=== PATIENT | female | born 1975 | race Caucasian/White ===

== ENCOUNTER → 2020-12-04 10:59 | Outpatient (BNVA) | payer OTHER, SELFPAY | PROVIDERS: Visit Provider Orthopaedic Surgery | DX: Z13.89 Encounter for screening for other disorder (principal) | CPT/HCPCS: 99212 ==

== ENCOUNTER 2021-01-15 08:58 | Outpatient (REF) | payer OTHER, SELFPAY ==
[2021-01-15 10:07] LABS: Estimated Average Glucose 143 mg/dL; Hemoglobin A1c % 6.6 %
[2021-01-15 10:12] LABS: Alanine Aminotransferase 22 U/L (0-31); Alkaline Phosphatase 53 U/L (39-117); Anion Gap 10 (12-20); Aspartate Amino Transferase 22 U/L (5-31); Bilirubin Total 0.8 mg/dL (0.0-1.0); Blood Urea Nitrogen 10 mg/dL (9-16); Calcium 8.7 mg/dL (8.4-10.2); Carbon Dioxide 24 mmol/L (22-29); Chloride 111 mmol/L (96-108); Cholesterol 157 mg/dL; Estimated Glomerular Filt Rate > 60; Glucose Random 199 mg/dL (60-115); HDL Cholesterol 75 mg/dL; LDL Cholesterol Calculated 75 mg/dl; Potassium 4.9 mmol/L (3.3-5.1); Sodium 140 mmol/L (135-145); Total Protein 6.7 g/dL (6.5-8.0); Triglycerides 36 mg/dL
[2021-01-15 10:34] LABS: TSH reflex Free T4 1.48 uIU/mL (0.32-4.0); Vitamin D 25-OH Total 47.2 ng/mL (>30)
[2021-01-20 21:01] LABS: Insulin Auto Antibody 1.7 U/mL (<0.4)
== END 2021-01-15 08:59 | disposition home or self-care (01) ==
LOC: HO.LAB 08:58
PROVIDERS: PCP Hospitalist; Visit Provider Internal Medicine
DX: E55.9 Vitamin D deficiency, unspecified (principal); E10.49 Type 1 diabetes mellitus with other diabetic neurological complication; E03.9 Hypothyroidism, unspecified
CPT/HCPCS: 36415; 80053; 80061; 82043; 82306; 83036; 84443; 86337

== ENCOUNTER 2021-03-12 10:54 | Outpatient (REF) | payer OTHER, SELFPAY ==
--- NOTE | ~2021-03-12 | MM_ITS ---
EXAMINATION: MM SCREENING DIGITAL BREAST TOMOSYNTHESIS, BILATERAL CLINICAL INFORMATION: Screening. Asymptomatic. Age 46. Family history premenopausal breast cancer, mother. The lifetime risk of breast cancer based on the Tyrer-Cuzick Model is 24%. COMPARISON: Mammography: 01/14/2014, 12/07/2012 TECHNIQUE: Digital breast tomosynthesis is performed in both the craniocaudal and mediolateral oblique views along with computer-aided detection (CAD). Synthesized 2D images are generated from the tomosynthesis. FINDINGS: The breasts are heterogeneously dense, which may obscure small masses (ACR BI-RADS breast composition Category c). There are no significant masses, abnormal calcifications, or other abnormalities. No significant changes. The axilla and skin contours are unremarkable. MM/MM tomosynthesis screening BI IMPRESSION: No mammographic evidence of malignancy. ASSESSMENT: BI-RADS 1: Negative RECOMMENDATION: 1. Routine annual mammography screening. 2. The lifetime risk of breast cancer based on the Tyrer-Cuzick Model is 24%. Additional annual adjunct screening with breast MRI may be of benefit in women with a risk score of 20% or greater and dense breast parenchymal pattern on mammography. This patient's information was entered into a reminder system with a target due date for their next mammogram.
== END 2021-03-12 10:55 | disposition home or self-care (01) ==
LOC: HO.MAMMO 10:54
PROVIDERS: PCP Hospitalist; Visit Provider Hospitalist
DX: Z12.31 Encounter for screening mammogram for malignant neoplasm of breast (principal)
CPT/HCPCS: 77063; 77067

== ENCOUNTER 2021-12-03 14:17 | Outpatient (REF) | payer OTHER, SELFPAY ==
[2021-12-03 18:20] LABS: Appearance Urine CLEAR; Color Urine DK YELLOW; Glucose Urine UA >=1000 MG/DL (NEG); Leukocyte Esterase Urine NEG (NEG); Specific Gravity - Urine <= 1.005 (1.005-1.025); Urine Blood NEG (NEG); Urine Ketones NEG (NEG); Urine Protein NEG (NEG-TRACE)
[2021-12-03 18:28] LABS: Nitrite Urine NEG (NEG)
[2021-12-03 18:29] LABS: RBC Urine 0 /HPF (0); Squamous Epithelial Cell Urine TRACE /LPF; WBC Urine 0 /HPF (0-4)
== END 2021-12-03 14:18 | disposition home or self-care (01) ==
LOC: HO.LAB 14:17
PROVIDERS: Visit Provider Family Medicine
DX: R39.15 Urgency of urination (principal)
CPT/HCPCS: 81001; 87086

== ENCOUNTER 2022-01-28 09:04 | Outpatient (REF) | payer OTHER, SELFPAY ==
[2022-01-28 09:27] LABS: MANUAL DIFF FLAG NO
[2022-01-28 09:43] LABS: Basophils Percent Auto 0.4 % (0-2); Eosinophils Absolute Auto 0.2 X10*3/uL (0.0-0.4); Eosinophils Percent Auto 3.1 % (0-4); Hematocrit 42.9 % (37.0-47.0); Hemoglobin 14.9 g/dl (12.0-16.0); Imm Gran Abs Auto 0.03 X10*3/uL (0.00-0.03); Imm Gran Pct Auto 0.4 % (0.0-0.4); Lymphocytes Absolute Auto 1.8 X10*3/uL (1.2-4.9); Mean Corpuscular HGB Conc 34.7 g/dl (31.0-35.0); Mean Corpuscular Volume 94.9 fL (80.0-98.0); Mean Platelet Volume 10.2 fL (9.4-12.3); Monocytes Absolute Auto 0.6 X10*3/uL (0.1-1.2); Monocytes Percent Auto 8.4 % (2-11); Neutrophils Absolute Auto 4.1 x10*3/uL (2.0-8.3); Neutrophils Percent Auto 60.7 % (45-73); Platelet Count 219 X10*3/uL (160-400); Red Blood Count 4.52 X10*6/uL (4.20-5.50); Red Cell Distribution Width 11.3 % (11.0-16.0); White Blood Count 6.8 X10*3/uL (4.8-10.8)
[2022-01-28 10:05] LABS: Alanine Aminotransferase 31 U/L (0-31); Albumin Level 4.2 g/dL (3.5-5.0); Alkaline Phosphatase 56 U/L (39-117); Anion Gap 11 (12-20); Aspartate Amino Transferase 27 U/L (5-31); Bilirubin Total 0.6 mg/dL (0.0-1.0); Blood Urea Nitrogen 14 mg/dL (9-16); Calcium 9.6 mg/dL (8.4-10.2); Carbon Dioxide 22 mmol/L (22-29); Chloride 109 mmol/L (96-108); Estimated Glomerular Filt Rate > 60; Glucose Random 122 mg/dL (60-115); Potassium 4.9 mmol/L (3.3-5.1); Sodium 137 mmol/L (135-145); Total Protein 7.3 g/dL (6.5-8.0)
[2022-01-28 10:26] LABS: TSH reflex Free T4 0.42 uIU/mL (0.32-4.0); Vitamin D 25-OH Total 51.5 ng/mL (>30)
[2022-01-28 10:44] LABS: Estimated Average Glucose 154 mg/dL
[2022-01-28 11:34] LABS: Creatinine Urine 90.94 mg/dL
[2022-01-28 11:37] LABS: Microalbumin Urine < 5.0 mg/L
[2022-01-30 07:36] LABS: LDL Cholesterol Direct 76 mg/dL (<100)
== END 2022-01-28 09:05 | disposition home or self-care (01) ==
LOC: HO.LAB 09:04
PROVIDERS: PCP Hospitalist; Visit Provider Internal Medicine
DX: E55.9 Vitamin D deficiency, unspecified (principal); E10.49 Type 1 diabetes mellitus with other diabetic neurological complication; E03.9 Hypothyroidism, unspecified
CPT/HCPCS: 36415; 80053; 82043; 82306; 83036; 83721; 84443; 85025

== ENCOUNTER 2022-04-08 11:12 | Outpatient (REF) | payer OTHER, SELFPAY ==
--- NOTE | ~2022-04-08 | MM_ITS ---
EXAMINATION: MM SCREENING DIGITAL BREAST TOMOSYNTHESIS, BILATERAL CLINICAL INFORMATION: Screening. Asymptomatic. Family history breast cancer, mother. The lifetime risk of breast cancer based on the Tyrer-Cuzick Model is 24%. COMPARISON: Mammography: 03/12/2021, 01/14/2014 TECHNIQUE: Digital breast tomosynthesis is performed in both the craniocaudal and mediolateral oblique views along with computer-aided detection (CAD). Synthesized 2D images are generated from the tomosynthesis. Additional left CC view is provided. FINDINGS: The breasts are heterogeneously dense, which may obscure small masses (ACR BI-RADS breast composition Category c). There are no significant masses, abnormal calcifications, or other abnormalities. Parenchymal pattern is similar to prior studies. There is no developing density or architectural abnormality. The axilla and skin contours are unremarkable. No significant changes. MM/MM tomosynthesis screening BI IMPRESSION: No mammographic evidence of malignancy. ASSESSMENT: BI-RADS 1: Negative RECOMMENDATION: Routine annual mammography screening. This patient's information was entered into a reminder system with a target due date for their next mammogram.
== END 2022-04-08 11:13 | disposition home or self-care (01) ==
LOC: HO.MAMMO 11:12
PROVIDERS: PCP Hospitalist; Visit Provider Hospitalist
DX: Z12.31 Encounter for screening mammogram for malignant neoplasm of breast (principal)
CPT/HCPCS: 77063; 77067

== ENCOUNTER 2022-06-17 11:44 | Outpatient (REF) | payer OTHER, SELFPAY ==
[2022-06-17 17:21] LABS: CT PCR NOT DETECTED (Not Detect.); NG PCR NOT DETECTED (Not Detect.)
[2022-06-18 12:21] LABS: BV Int Neg Control Negative (Negative); BV Int Pos Control Positive (Positive)
[2022-06-21 06:46] LABS: HPV 16 RNA NOT DETECTED (NOT DETECTED); HPV mRNA E6/E7 rflx Detected (Not Detected)
== END 2022-06-17 11:45 | disposition home or self-care (01) ==
LOC: HO.LNP 11:44
PROVIDERS: Visit Provider Advanced Practice Midwife
DX: Z01.419 Encounter for gynecological examination (general) (routine) without abnormal findings (principal); Z11.51 Encounter for screening for human papillomavirus (HPV); Z11.3 Encounter for screening for infections with a predominantly sexual mode of transmission
CPT/HCPCS: 87480; 87491; 87510; 87591; 87624; 87625; 87660; 88142

== ENCOUNTER 2022-06-24 13:55 | Outpatient (REF) | payer OTHER, SELFPAY ==
[2022-06-24 15:58] LABS: Estimated Average Glucose 148 mg/dL; Hemoglobin A1c % 6.8 %
[2022-06-24 16:34] LABS: TSH reflex Free T4 0.36 uIU/mL (0.32-4.0)
== END 2022-06-24 13:56 | disposition home or self-care (01) ==
LOC: HO.LAB 13:55
PROVIDERS: PCP Hospitalist; Visit Provider Internal Medicine
DX: E10.49 Type 1 diabetes mellitus with other diabetic neurological complication (principal); E03.9 Hypothyroidism, unspecified
CPT/HCPCS: 36415; 83036; 84443

== ENCOUNTER 2022-09-26 08:26 | Outpatient (REF) | payer OTHER, SELFPAY ==
[2022-09-26 08:45] LABS: MANUAL DIFF FLAG NO
[2022-09-26 09:03] LABS: Basophils Percent Auto 0.2 % (0-2); Eosinophils Absolute Auto 0.2 X10*3/uL (0.0-0.4); Eosinophils Percent Auto 3.6 % (0-4); Hematocrit 39.8 % (37.0-47.0); Imm Gran Abs Auto 0.01 X10*3/uL (0.00-0.03); Imm Gran Pct Auto 0.2 % (0.0-0.4); Lymphocytes Absolute Auto 1.7 X10*3/uL (1.2-4.9); Lymphocytes Percent Auto 35.6 % (20-40); Mean Corpuscular HGB Conc 35.2 g/dl (31.0-35.0); Mean Corpuscular Hemoglobin 33.1 pg (27.0-33.0); Mean Corpuscular Volume 94.1 fL (80.0-98.0); Mean Platelet Volume 9.9 fL (9.4-12.3); Monocytes Absolute Auto 0.3 X10*3/uL (0.1-1.2); Monocytes Percent Auto 6.5 % (2-11); Neutrophils Absolute Auto 2.6 x10*3/uL (2.0-8.3); Neutrophils Percent Auto 53.9 % (45-73); Platelet Count 218 X10*3/uL (160-400); Red Blood Count 4.23 X10*6/uL (4.20-5.50); Red Cell Distribution Width 12.1 % (11.0-16.0); White Blood Count 4.8 X10*3/uL (4.8-10.8)
[2022-09-26 09:50] LABS: Estimated Average Glucose 146 mg/dL; Hemoglobin A1c % 6.7 %
[2022-09-26 11:05] LABS: Creatinine Urine 30.86 mg/dL; Microalbumin Urine < 5.0 mg/L
[2022-09-26 11:10] LABS: Alanine Aminotransferase 17 U/L (0-31); Alkaline Phosphatase 42 U/L (39-117); Anion Gap 11 (12-20); Aspartate Amino Transferase 21 U/L (5-31); Bilirubin Total 0.5 mg/dL (0.0-1.0); Blood Urea Nitrogen 14 mg/dL (9-16); Calcium 8.9 mg/dL (8.4-10.2); Carbon Dioxide 23 mmol/L (22-29); Chloride 109 mmol/L (96-108); Cholesterol 169 mg/dL; Estimated Glomerular Filt Rate > 60; Glucose Random 169 mg/dL (60-115); HDL Cholesterol 77 mg/dL; LDL Cholesterol Calculated 82 mg/dl; Potassium 4.7 mmol/L (3.3-5.1); Sodium 138 mmol/L (135-145); TSH reflex Free T4 9.71 uIU/mL (0.32-4.0); Total Protein 6.7 g/dL (6.5-8.0); Triglycerides 54 mg/dL
[2022-09-26 12:50] LABS: Free T4 (Free Thyroxine) 0.95 ng/dL (0.71-1.85)
== END 2022-09-26 08:27 | disposition home or self-care (01) ==
LOC: HO.LAB 08:26
PROVIDERS: PCP Hospitalist; Visit Provider Internal Medicine
DX: E03.9 Hypothyroidism, unspecified (principal); E55.9 Vitamin D deficiency, unspecified; E10.49 Type 1 diabetes mellitus with other diabetic neurological complication
CPT/HCPCS: 36415; 80053; 80061; 82043; 82306; 83036; 84439; 84443; 85025

== ENCOUNTER 2023-02-11 10:38 | Outpatient (REF) | payer OTHER, SELFPAY ==
[2023-02-11 12:21] LABS: TSH reflex Free T4 4.27 uIU/mL (0.32-4.0)
[2023-02-11 14:04] LABS: Free T4 (Free Thyroxine) 1.26 ng/dL (0.71-1.85)
== END 2023-02-11 10:39 | disposition home or self-care (01) ==
LOC: HO.LAB 10:38
PROVIDERS: PCP Hospitalist; Visit Provider Internal Medicine
DX: E03.9 Hypothyroidism, unspecified (principal)
CPT/HCPCS: 36415; 84439; 84443

== ENCOUNTER 2023-05-05 15:53 | Outpatient (REF) | payer OTHER, SELFPAY ==
[2023-05-05 16:49] LABS: Estimated Average Glucose 154 mg/dL
[2023-05-05 17:16] LABS: Alanine Aminotransferase 16 U/L (0-31); Alkaline Phosphatase 42 U/L (39-117); Anion Gap 10 (12-20); Aspartate Amino Transferase 15 U/L (5-31); Bilirubin Total 0.3 mg/dL (0.0-1.0); Blood Urea Nitrogen 9 mg/dL (9-16); Calcium 8.8 mg/dL (8.4-10.2); Carbon Dioxide 24 mmol/L (22-29); Chloride 105 mmol/L (96-108); Estimated Glomerular Filt Rate > 60; Glucose Random 298 mg/dL (60-115); Potassium 3.9 mmol/L (3.3-5.1); Sodium 135 mmol/L (135-145)
[2023-05-05 17:20] LABS: TSH reflex Free T4 0.27 uIU/mL (0.32-4.0)
[2023-05-05 18:57] LABS: Free T4 (Free Thyroxine) 1.21 ng/dL (0.71-1.85)
[2023-05-05 19:12] LABS: Creatinine Urine 9.91 mg/dL; Microalbumin Urine < 5.0 mg/L
== END 2023-05-05 15:54 | disposition home or self-care (01) ==
LOC: HO.LAB 15:53
PROVIDERS: PCP Hospitalist; Visit Provider Internal Medicine
DX: E10.69 Type 1 diabetes mellitus with other specified complication (principal); E03.9 Hypothyroidism, unspecified
CPT/HCPCS: 36415; 80053; 82043; 83036; 84439; 84443

== ENCOUNTER 2023-06-03 16:08 | Outpatient (REF) | payer OTHER, SELFPAY ==
--- NOTE | ~2023-06-03 | MM_ITS ---
EXAMINATION: MM SCREENING DIGITAL BREAST TOMOSYNTHESIS, BILATERAL CLINICAL INFORMATION: Screening. Asymptomatic. Family history breast cancer, mother. COMPARISON: Mammography: 04/08/2022, 03/12/2021, 01/14/2014, and dating back to 2010. MRI breasts 08/30/2011. TECHNIQUE: Digital breast tomosynthesis is performed in both the craniocaudal and mediolateral oblique views along with computer-aided detection (CAD). Synthesized 2D images are generated from the tomosynthesis. FINDINGS: The breasts are heterogeneously dense, which may obscure small masses (ACR BI-RADS breast composition Category c). There are no suspicious masses, suspicious grouped calcifications, or areas of architectural distortion. The parenchymal pattern is stable from prior exams. There are no skin changes or axillary abnormalities. MM/MM tomosynthesis screening BI IMPRESSION: No mammographic evidence of malignancy. ASSESSMENT: BI-RADS BI-RADS 1 - Negative RECOMMENDATION: Routine annual mammography screening. 1 year F/U This examination should not preclude the clinical evaluation of a suspicious palpable abnormality. This patient's information was entered into a reminder system with a target due date for their next mammogram.
== END 2023-06-03 16:09 | disposition home or self-care (01) ==
LOC: HO.MAMMO 16:08
PROVIDERS: PCP Hospitalist; Visit Provider Hospitalist
DX: Z12.31 Encounter for screening mammogram for malignant neoplasm of breast (principal)
CPT/HCPCS: 77063; 77067

== ENCOUNTER → 2023-06-03 16:15 | Outpatient (BNV) | payer OTHER, SELFPAY | PROVIDERS: PCP Hospitalist; Visit Provider Radiology Diagnostic Radiology | DX: Z12.31 Encounter for screening mammogram for malignant neoplasm of breast (principal) | CPT/HCPCS: 77063; 77067 ==

== ENCOUNTER 2023-06-30 14:50 | Outpatient (AMB) | payer OTHER, SELFPAY ==
[2023-06-30 14:54] VITALS: BP 120/80; BMI 23.4
--- NOTE | 2023-06-30 14:54 | MHC.OFFVIS ---
Intake Vital Signs 06/30/23 14:54 Height 5 ft Weight 120 lb BMI 23.4 BP 120/80 Intake Visit Reasons: Annual Do not reschedule Intake Note: would like to talk about control, and had a UTI 2 weeks ago. Firewall Security Engineer Required: No Information Interpreted: non-clinical & clinical Precision Inspector: Precision Inspector Present (Aidyn) Allergies lithium [[place]] Allergy (Unknown, Verified 06/30/23 15:00) VOMITTING/DIARRHEA silver [From TEGADERM AG MESH] Allergy (Unknown, Verified 06/30/23 15:00) ITCHY RASH Sulfa (Sulfonamide Antibiotics) Allergy (Unknown, Verified 06/30/23 15:00) RASH,HIVES sulfamethoxazole Allergy (Unknown, Verified 06/30/23 15:00) rash [place] Carbonate Allergy (Unknown, Uncoded 06/30/23 15:00) rash Tegaderm Allergy (Unknown, Uncoded 06/30/23 15:00) Unknown tegaderm Allergy (Unknown, Uncoded 06/30/23 15:00) Unknown Medication List - Last Reconciled 06/30/23 by Adrienne Gaxiola CNM blood sugar diagnostic (IO TurbineTouch Verio test strips) As directed blood-glucose sensor (FreeStyle Jose 3 Sensor device) As directed cholecalciferol (vitamin D3) 25 mcg PO DAILY docusate sodium 100 mg PO BID flash glucose sensor (FreeStyle Jose 2 Sensor kit) As directed fluconazole 150 mg PO Q3D 2 doses fluconazole (Diflucan) 150 mg PO DAILY 1 dose hydroxyzine HCl 25 mg PO BID PRN insulin aspart U-100 (Novolog FlexPen U-100 Insulin aspart) 1 sliding scale dose subcut USEASDIRECTD insulin glargine (Lantus Solostar U-100 Insulin) units subcut ketoconazole 2% topical ketotifen fumarate 0.025%(0.035%) (Alaway) 1 drp ophthalmic (eye) BID levothyroxine 100 mcg PO DAILY omeprazole 20 mg PO DAILY pen needle, diabetic (BD Ultra-Fine Mini Pen Needle) As directed sennosides (senna) 17.2 mg PO DAILY topiramate TAKE 1 TABLET BY MOUTH TWICE A DAY Is last menstrual period known: Yes Last menstrual period: 06/21/23 Post menopausal: No HPI Annual Do not reschedule HPI Details 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 She is a type 1 diabetic and has been for years she uses the sensor but gives her self insulin with herring. She has become sexually active in the last few months as soon as she did she got a UTI and she recognizes the symptoms right away with urinary urgency and frequency she called her primary care provider she is allergic to Bactrim/sulfa so they treated her with nitrofurantoin and it worked. She prefers being on as few medications as possible she would like to get back on control she just had her period About 11 days ago so we discussed starting the control pills at the beginning of her next period. She has been on Rita in the past and had no problems with that. She also is on topiramate for mood imbalance but she is actually thinking about going off of it and is going to discuss this with the primary care provider. She did not have any interaction with the [place] and topiramate in the past. She does not want to have a baby at this age. She just recently had her mammogram she believes she had of biopsy of 1 area of her breast but review of her last 3 mammograms reveals normal findings she herself also went firm bracket testing some years ago and she is bracket negative. She had this done because her mom had breast cancer when she was 40 or 41. She is not worried about STDs but excepted testing during the exam. The 1 thing she was concerned about was that she had had HPV show up on a Pap way back in the past and she does not know at all whether not they did anything to her cervix then. When she had the Pap smear show positive HPV last year that made her very nervous to wait a year but she understood that the guidelines had changed. She walks everywhere for exercise and also because she does not have a car and sometime she rides her bike though she did not have access to it this year. She was taking care of her grandmother, but her grandma at age 93 last february. [facility] Medical History (Updated 06/30/23 @ 16:21 by Adrienne Gaxiola CNM) Anxiety Hypothyroidism Diabetes Surgical History History of rotator cuff surgery Family History Mother Breast cancer Osteoporosis Maternal Aunt Breast cancer Social History Housing: Apartment Alcohol intake: current Alcohol intake frequency: holidays/special occasions only Patient Tobacco Use Status: Former Tobacco user Years Smoked: 10 years e-Cigarette/Vaping Use: Never Used Current occupational status: disabled Female Reproductive History Menstrual Age of Menarche: 13 Duration of menses: 6-7 days Date of last menstrual period: 06/21/23 control method: none Total pregnancies: 2 Ab induced: 2 Date of last pap smear: 06/17/22 (+HPV) History of abnormal pap smear: Yes (LIZZY 2 1996 1997) Date of Mammogram: 06/03/23 Physical Exam Vital Signs: Last Vital Signs BP 120/80 06/30/23 14:54 BMI result Body Mass Index 23.4 Chest Other: Slight thickness of breast tissue on left side more dense,no specific masses palpable . Results Reviewed Results Reviewed: Reviewed past Paps reviewed last 3 mammograms including the 1 done 06/03/2023. Assessment & Plan Assessment & Plan (1) Diabetes: Comment: Type 1 Code(s): E11.9 - Type 2 diabetes mellitus without complications (2) Hypothyroidism: Code(s): E03.9 - Hypothyroidism, unspecified (3) control counseling: Code(s): Z30.09 - Encounter for other general counseling and advice on contraception (4) Yeast infection of the vagina: Comment: not currently, but pt is type 1 DM, offering prn rx for diflucan. Code(s): B37.3 - Candidiasis of vulva and vagina (5) Screen for sexually transmitted diseases: Code(s): Z11.3 - Encounter for screening for infections with a predominantly sexual mode of transmission (6) Abnormality of cervix: Comment: irregular bumps at internal os seen on 06/17/22 exam. HPV pos, cytology neg. Per [facility] repeat Pap in 1 year.; Today, 06/30/23- cervix gives appearance of having had LEEP in the past and nabothian cysts Pap done. 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 She is a type 1 diabetic and has been for years she uses the sensor but gives her self insulin with herring. She has become sexually active in the last few months as soon as she did she got a UTI and she recognizes the symptoms right away with urinary urgency and frequency she called her primary care provider she is allergic to Bactrim/sulfa so they treated her with nitrofurantoin and it worked. She prefers being on as few medications as possible she would like to get back on control she just had her period About 11 days ago so we discussed starting the control pills at the beginning of her next period. She has been on [place] in the past and had no problems with that. She also is on topiramate for mood imbalance but she is actually thinking about going off of it and is going to discuss this with the primary care provider. She did not have any interaction with the Rita and topiramate in the past. She does not want to have a baby at this age. She just recently had her mammogram she believes she had of biopsy of 1 area of her breast but review of her last 3 mammograms reveals normal findings she herself also went firm bracket testing some years ago and she is bracket negative. She had this done because her mom had breast cancer when she was 40 or 41. She is not worried about STDs but excepted testing during the exam. The 1 thing she was concerned about was that she had had HPV show up on a Pap way back in the past and she does not know at all whether not they did anything to her cervix then. When she had the Pap smear show positive HPV last year that made her very nervous to wait a year but she understood that the guidelines had changed. She walks everywhere for exercise and also because she does not have a car and sometime she rides her bike though she did not have access to it this year. She was taking care of her grandmother, but her grandma at age 93 last february. Reviewed the last 3 mammograms most recently done 06/03/2023,. Also Pap done with HPV code testing. Reviewed how to start the pills I recommend she start them at the beginning of her next period within the 1st 3 days certainly reviewed what to do if she misses a pill and backup method and that the control pills may be rendered slightly less effective by her topiramate which she is considering talking about going off of with her primary she has not met her new primary it will be meeting her in August. Since she has been on the pills before and she will be getting her blood pressure checked at the visit and she is not prone to hypertension she does not need to return here in 3 months for blood pressure check we will see her in 1 year additionally I am reviewing/refilling Diflucan just in case she needs it because of her type 1 diabetes. Discussed that she did the right thing with her UTI in recognizing the symptoms and I discussed the physical dynamics of urethral irritation during intercourse and how best to avoid that using a plastic model. Also discussed the drinking plenty of water voiding before and after intercourse and sugar free pure cranberry juice. Orders: Orders Bacterial Vaginosis Panel Today Z20.2 - Contact with and (suspected) exposure to infections with a predominantly sexual mode of transmission CT NG by PCR Today Z20.2 - Contact with and (suspected) exposure to infections with a predominantly sexual mode of transmission Pap Smear Today N88.9 - Noninflammatory disorder of cervix uteri, unspecified, Z12.4 - Encounter for screening for malignant neoplasm of cervix Medications: New norethindrone (contraceptive) 0.35 mg PO DAILY 84 tabs 4RF Refilled fluconazole may repeat second dose 72 hrs after first dose if symptoms persist 150 mg PO Q3D 2 doses 2 tabs 2RF fluconazole may repeat second dose 72 hrs after first dose if symptoms persist 150 mg PO Q3D 2 doses 2 tabs 2RF Coding Level of Care Code Est Pt Prev Care 40-64y(50331) Diagnoses Diabetes E11.9 Hypothyroidism E03.9 control counseling Z30.09 Yeast infection of the vagina B37.3 Screen for sexually transmitted diseases Z11.3 Abnormality of cervix N88.9 Cervical cancer screening Z12.4 Well woman exam with routine gynecological exam Z01.419
== END 2023-06-30 16:13 | disposition home or self-care (01) ==
PROVIDERS: PCP Nurse Practitioner Family; Visit Provider Advanced Practice Midwife
DX: Z01.419 Encounter for gynecological examination (general) (routine) without abnormal findings (principal); E11.9 Type 2 diabetes mellitus without complications; E03.9 Hypothyroidism, unspecified; Z30.09 Encounter for other general counseling and advice on contraception; B37.31 Acute candidiasis of vulva and vagina; Z11.3 Encounter for screening for infections with a predominantly sexual mode of transmission; N88.9 Noninflammatory disorder of cervix uteri, unspecified; Z12.4 Encounter for screening for malignant neoplasm of cervix
CPT/HCPCS: 99396

== ENCOUNTER 2023-06-30 14:50 | Outpatient (REF) | payer OTHER, SELFPAY ==
[2023-07-01 16:57] LABS: CT PCR NOT DETECTED (Not Detect.); NG PCR NOT DETECTED (Not Detect.)
[2023-07-02 13:33] LABS: BV Int Neg Control Negative (Negative); BV Int Pos Control Positive (Positive)
[2023-07-04 03:59] LABS: HPV mRNA E6/E7 rflx Not Detected (Not Detected)
== END 2023-06-30 14:51 | disposition home or self-care (01) ==
LOC: HO.LNP 14:50
PROVIDERS: PCP Nurse Practitioner Family; Visit Provider Advanced Practice Midwife
DX: Z01.419 Encounter for gynecological examination (general) (routine) without abnormal findings (principal); N88.9 Noninflammatory disorder of cervix uteri, unspecified; E10.9 Type 1 diabetes mellitus without complications; E03.9 Hypothyroidism, unspecified; B37.31 Acute candidiasis of vulva and vagina; Z20.2 Contact with and (suspected) exposure to infections with a predominantly sexual mode of transmission; Z79.899 Other long term (current) drug therapy
CPT/HCPCS: 0353U; 87480; 87510; 87624; 87660; 88142

== ENCOUNTER 2023-08-25 15:56 | Outpatient (REF) | payer OTHER, SELFPAY ==
[2023-08-25 16:39] LABS: Estimated Average Glucose 171 mg/dL; Hemoglobin A1c % 7.6 % (<6.0)
[2023-08-25 17:31] LABS: Alanine Aminotransferase 23 U/L (0-31); Albumin Level 4.4 g/dL (3.5-5.0); Alkaline Phosphatase 49 U/L (39-117); Anion Gap 12 (12-20); Aspartate Amino Transferase 22 U/L (5-31); Bilirubin Total 0.5 mg/dL (0.0-1.0); Blood Urea Nitrogen 14 mg/dL (9-16); Calcium 9.6 mg/dL (8.4-10.2); Carbon Dioxide 24 mmol/L (22-29); Chloride 104 mmol/L (96-108); Estimated Glomerular Filt Rate > 60; Glucose Random 241 mg/dL (60-115); Potassium 4.7 mmol/L (3.3-5.1); Sodium 135 mmol/L (135-145); Total Protein 7.7 g/dL (6.5-8.0)
[2023-08-25 17:46] LABS: Thyroid Stimulating Hormone 0.69 uIU/mL (0.32-4.0); Vitamin D 25-OH Total 56.8 ng/mL (>30)
== END 2023-08-25 15:57 | disposition home or self-care (01) ==
LOC: HO.LAB 15:56
PROVIDERS: PCP Nurse Practitioner Family; Visit Provider Internal Medicine
DX: E55.9 Vitamin D deficiency, unspecified (principal); E03.9 Hypothyroidism, unspecified; E10.69 Type 1 diabetes mellitus with other specified complication
CPT/HCPCS: 36415; 80053; 82306; 83036; 84443

== ENCOUNTER 2023-10-22 12:17 | Outpatient (AMB) | payer OTHER, SELFPAY ==
--- NOTE | 2023-10-22 12:17 | A.OFFVIS_ITS ---
Intake Intake Visit Reasons: TV Control Intake Note: Needs refills on Underwood but is having problems refilling it with [facility] and she was told that the rita is being discontinued. Shipping Associate Required: No Allergies lithium [[employer]] Allergy (Unknown, Verified 10/22/23 12:17) VOMITTING/DIARRHEA silver [From TEGADERM AG MESH] Allergy (Unknown, Verified 10/22/23 12:17) ITCHY RASH Sulfa (Sulfonamide Antibiotics) Allergy (Unknown, Verified 10/22/23 12:17) RASH,HIVES sulfamethoxazole Allergy (Unknown, Verified 10/22/23 12:17) rash [employer] Carbonate Allergy (Unknown, Uncoded 10/22/23 12:17) rash Tegaderm Allergy (Unknown, Uncoded 10/22/23 12:17) Unknown tegaderm Allergy (Unknown, Uncoded 10/22/23 12:17) Unknown Medication List - Last Reconciled 10/22/23 by Adrienne Gaxiola CNM blood sugar diagnostic (ShnergleTouch Verio test strips) As directed blood-glucose sensor (FreeStyle Jose 3 Sensor device) As directed Sherrill (norethindrone (contraceptive)) 0.35 mg PO DAILY 84 days NS cholecalciferol (vitamin D3) 25 mcg PO DAILY docusate sodium 100 mg PO BID flash glucose sensor (FreeStyle Jose 2 Sensor kit) As directed fluconazole (Diflucan) 150 mg PO DAILY 1 dose fluconazole 150 mg PO Q3D 2 doses hydroxyzine HCl 25 mg PO BID PRN insulin aspart U-100 (Novolog FlexPen U-100 Insulin aspart) 1 sliding scale dose subcut USEASDIRECTD insulin glargine (Lantus Solostar U-100 Insulin) units subcut ketoconazole 2% topical ketotifen fumarate 0.025%(0.035%) ([place]) 1 drp ophthalmic (eye) BID levothyroxine 100 mcg PO DAILY metronidazole 500 mg PO BID 7 days omeprazole 20 mg PO DAILY pen needle, diabetic (BD Ultra-Fine Mini Pen Needle) As directed sennosides (senna) 17.2 mg PO DAILY topiramate TAKE 1 TABLET BY MOUTH TWICE A DAY Is last menstrual period known: Yes Last menstrual period: 10/11/23 Post menopausal: No HPI TV Control HPI Details This is a tele visit by phone because the patient can not connect by video done in 3 parts. The patient is a type 1 diabetic and generally has excellent control of her blood sugars. She says that the pharmacist told her that Underwood control pills are being discontinued and that is the name brand that she has had good effect with she was given a generic norethindrone by a different manufacturing company in June and she said it messed with her blood sugars terribly and then she was able to go to a different pharmacy and get a pack of Rita and things reverted to normal. She wants to stay on control because she is now sexually active she is 48 years old she does not want to have anything inserted in her or any injections. She is in need of control and norethindrone control or pretty much the only option. Calls were placed to her pharmacy to try and investigate generic options. Get with the patient's information for what she had had the bad reaction to a new prescription was sent to her [facility] [email or web address] and they are going to try and find a generic norethindrone OCP that does not come from [employer] which is the company that she had the reaction from the pharmacist shared that she thought that there should be many options available. I called the patient back and we discussed this and also we had also discussed all the options of Depo-Provera and Nexplanon and a Mirena bearing IUD or ParaGard IUD however she has not interested in any of those methods. She is going to give the pharmacy a little bit of time and then call and see what progress they have made with finding her norethindrone we also discussed backup method should she not be able to start the pills today and to expect breakthrough bleeding but also that she to be on the safe side she should use condoms for the next cycle and that would cover her for sure as she is very clear she does not want to conceive at this age in her life. Additionally sometime in the future she may want to consider being tested to see if she is in the menopausal range however that issue could not be addressed today. Patient expressed interest in finding out if she was still fertile but that would be a difficult question to answer. [facility] Medical History Anxiety Hypothyroidism Diabetes Surgical History History of rotator cuff surgery Family History Mother Breast cancer Osteoporosis Maternal Aunt Breast cancer Social History Housing: Apartment Alcohol intake: current Alcohol intake frequency: holidays/special occasions only Patient Tobacco Use Status: Former Tobacco user Years Smoked: 10 years e-Cigarette/Vaping Use: Never Used Current occupational status: disabled Female Reproductive History Menstrual Age of Menarche: 13 Date of last menstrual period: 10/11/23 control method: pills Assessment & Plan Assessment & Plan (1) control counseling: Code(s): Z30.09 - Encounter for other general counseling and advice on contraception (2) Adverse reaction to control pills: Comment: Has usually taken ?Rita? brand of norethindrone OCPs. In June she was given a generic of norethindrone manufactured by [employer] and cited completely abnormal blood sugars until she was able to get back on the Underwood. Discussion occurred with pharmacist today to try and attempt to get OCPs from different instructor physical, Code(s): T38.4X5A - Adverse effect of oral contraceptives, initial encounter Plan This is a tele visit by phone because the patient can not connect by video done in 3 parts. The patient is a type 1 diabetic and generally has excellent control of her blood sugars. She says that the pharmacist told her that Underwood control pills are being discontinued and that is the name brand that she has had good effect with she was given a generic norethindrone by a different manufacturing company in June and she said it messed with her blood sugars terribly and then she was able to go to a different pharmacy and get a pack of Underwood and things reverted to normal. She wants to stay on control because she is now sexually active she is 48 years old she does not want to have anything inserted in her or any injections. She is in need of control and norethindrone control or pretty much the only option. Calls were placed to her pharmacy to try and investigate generic options. Get with the patient's information for what she had had the bad reaction to a new prescription was sent to her [email or web address] and they are going to try and find a generic norethindrone OCP that does not come from [employer] which is the company that she had the reaction from the pharmacist shared that she thought that there should be many options available. I called the patient back and we discussed this and also we had also discussed all the options of Depo-Provera and Nexplanon and a Mirena bearing IUD or ParaGard IUD however she has not interested in any of those methods. She is going to give the pharmacy a little bit of time and then call and see what progress they have made with finding her norethindrone we also discussed backup method should she not be able to start the pills today and to expect breakthrough bleeding but also that she to be on the safe side she should use condoms for the next cycle and that would cover her for sure as she is very clear she does not want to conceive at this age in her life. Additionally sometime in the future she may want to consider being tested to see if she is in the menopausal range however that issue could not be addressed today. Patient expressed interest in finding out if she was still fertile but that would be a difficult question to answer. Medications: New norethindrone (contraceptive) 0.35 mg PO DAILY 84 tabs 4RF Telehealth Telehealth Location of provider rendering services: practice address Location of patient: address on file Patient Identification confirmed using: Name, : Yes Telehealth method: video Patient verbally consented to treatment: Yes Patient verbally consented to billing insurance company: Yes Patient informed of any privacy concerns related to visit: Yes Coding Level of Care Code Tele Est Pt Level 3 (28206) Diagnoses control counseling Z30.09 Adverse reaction to control pills T38.4X5A Time Spent (min) 39 Comment 28+charting , ordering
== END 2023-10-22 14:08 | disposition home or self-care (01) ==
LOC: HO.HWSM 12:17
PROVIDERS: PCP Internal Medicine; Visit Provider Advanced Practice Midwife
DX: Z30.09 Encounter for other general counseling and advice on contraception (principal); T38.4X5A Adverse effect of oral contraceptives, initial encounter
CPT/HCPCS: 99213

== ENCOUNTER → 2023-10-22 12:17 | Outpatient (BNVA) | payer OTHER, SELFPAY | PROVIDERS: PCP Internal Medicine; Visit Provider Advanced Practice Midwife ==

== ENCOUNTER 2024-03-03 12:46 | Outpatient (AMB) | payer OTHER, SELFPAY ==
[2024-03-03 12:54] VITALS: BP 110/72; BMI 21.7
--- NOTE | 2024-03-03 12:54 | A.OFFPC_ITS ---
Vital Signs 03/03/24 12:54 Height 5 ft 5 in Weight 130 lb 4 oz BMI 21.7 BP 110/72 Blood Pressure Location Lt brachial Position Sitting Intake Visit Reasons: Transfer Of Care [place], Request PE Proced Tech Required: No Accompanied by: Self / Same As Patient Allergies lithium [[place]] Allergy (Unknown, Verified 03/03/24 13:19) VOMITTING/DIARRHEA silver [From TEGADERM AG MESH] Allergy (Unknown, Verified 03/03/24 13:19) ITCHY RASH Sulfa (Sulfonamide Antibiotics) Allergy (Unknown, Verified 03/03/24 13:19) RASH,HIVES sulfamethoxazole Allergy (Unknown, Verified 03/03/24 13:19) rash [place] Carbonate Allergy (Unknown, Uncoded 03/03/24 13:19) rash Tegaderm Allergy (Unknown, Uncoded 03/03/24 13:19) Unknown tegaderm Allergy (Unknown, Uncoded 03/03/24 13:19) Unknown Medication List - Last Reconciled 03/03/24 by Kelly Jolly MD blood sugar diagnostic (XY MobileTouch Verio test strips) As directed blood-glucose sensor (FreeStyle Jose 3 Sensor device) As directed cholecalciferol (vitamin D3) 25 mcg PO DAILY docusate sodium 100 mg PO BID flash glucose sensor (FreeStyle Jose 2 Sensor kit) As directed fluconazole (Diflucan) 150 mg PO DAILY 1 dose fluconazole 150 mg PO Q3D 2 doses hydroxyzine HCl 25 mg PO BID PRN insulin aspart U-100 (Novolog FlexPen U-100 Insulin aspart) 1 sliding scale dose subcut USEASDIRECTD insulin degludec (Tresiba FlexTouch U-100 insulin) units subcut ketotifen fumarate 0.025%(0.035%) ([place]) 1 drp ophthalmic (eye) BID levothyroxine 100 mcg PO DAILY norethindrone (contraceptive) 0.35 mg PO DAILY NS omeprazole 20 mg PO DAILY pen needle, diabetic (BD Ultra-Fine Mini Pen Needle) As directed sennosides (senna) 17.2 mg PO DAILY topiramate TAKE 1 TABLET BY MOUTH TWICE A DAY Tobacco use date assessed: 03/03/24 Dental Screening Dental Screen Date: 03/03/24 Did you have a dental visit in the last 12 months?: No Did you have a dental problem in the last 6 months where you did not have access to dental care?: No Was dental information given to patient?: Patient has dentist HPI HPI Comments History of Present Illness Details This is a 48-year-old female with diabetes mellitus type 1 diagnosed at 13 years old with hyperglycemia with long-term current use of insulin that comes for her physical exam as a new patient. Her A1c is elevated and she does follo ws with endocrinology. She will let her know about this matter. She also has hypothyroidism that is follow by Endocrinology. Diabetic exams are done yearly and has showed no diabetic retinopathy as per patient. No family history of colon cancer and she will prefer to do Cologuard instead of colonoscopy. I will order a lipid panel. Her LDL goal should be less than 70. No chest pain or shortness on breath. Has an upper eyelid stye in left eye that bothers her for the past 2 days. Mammogram and Pap smear up-to-date. [facility] Medical History (Updated 03/03/24 @ 15:08 by Kelly Jolly MD) Anxiety Hypothyroidism Diabetes Surgical History History of rotator cuff surgery Family History (Updated 03/03/24 @ 13:38 by Kelly Jolly MD) Mother Breast cancer, Onset Age: 38 Osteoporosis Social History Housing: Apartment Alcohol intake: current Alcohol intake frequency: holidays/special occasions only Patient Tobacco Use Status: Former Tobacco user Tobacco use type: Cigarette Years Smoked: 10 years e-Cigarette/Vaping Use: Never Used service: No Current occupational status: disabled Cognitive needs: No Hearing needs: No Vision needs: Yes Female Reproductive History Menstrual Age of Menarche: 13 Questionnaire PHQ-9 Over the last 2 weeks, how often have you been bothered by any of the following problems? 1. Little interest or pleasure in doing things: nearly every day 2. Feeling down, depressed, or hopeless: several days 3. Trouble falling or staying asleep, or sleeping too much: not at all 4. Feeling tired or having little energy: not at all 5. Poor appetite or overeating: not at all 6. Feeling bad about yourself - or that you are a failure or have let yourself or your family down: several days 7. Trouble concentrating on things, such as reading the newspaper or watching television: not at all 8. Moving or speaking so slowly that other people could have noticed. Or the opposite - being so fidgety or restless that you have been moving around a lot more than usual: not at all 9. Thoughts that you would be better off or of hurting yourself in some way: not at all Total score: 5 Depression Screening Interpretation: Positive Depression Screening Follow-up: Existing condition and Follow-up Visit Requested Depression Screening Done: Yes 96832 - PHQ-9 Billing: Yes Source: Developed by Drs. Nicholas Simpson, Vanita Cortez, Lino Mirza and colleagues, with an educational madeline from [employer]. Thrive Questionnaire Date Thrive assessed: 03/03/24 I am a: Patient What is your living situation today?: I have a steady place to live Within the past 12 months, did the food you bought not last and you didn't have the money to get more?: Never true Within the past 12 months, did you worry whether your food would run out before you got money to buy more?: Never true Do you have trouble paying for medicines?: No Do you have trouble getting transportation to medical appointments?: No Do you have trouble paying your heating and electricity bill?: No Do you have trouble taking care of your child, family member or friend?: No Do you have trouble with day-to-day activities such as bathing, preparing meals, shopping, managing finances, etc.?: No Are you currently unemployed and looking for a job?: No Are you interested in more education?: No Please select the resources that you would like help with: None Currently or been in a relationship where the following occur: no concerns reported THRIVE Score: 0 AUDIT C Alcohol Use Questionnaire (AUDIT-C) 1. How often do you have a drink containing alcohol?: Monthly or less 2. How many drinks containing alcohol do you have on a typical day when you are drinking?: 1 or 2 3. How often do you have six or more drinks on one occasion?: Never Total Score: 1 Score Reviewed/Action Taken: No JOSE CRUZ-7 AMB Questionnaire JOSE CRUZ-7 Date JOSE CRUZ - 7 assessed: 03/03/24 Feeling nervous, anxious, or on edge: 2 = More than half the days Not being able to stop or control worryin = Not at all Worrying too much about different things: 1 = Several days Trouble relaxin = Several days Being so restless that it is hard to sit still: 0 = Not at all Becoming easily annoyed or irritable: 1 = Several days Feeling afraid as if something awful might happen: 1 = Several days Total JOSE CRUZ-7 score (0-4 normal; 5-9 mild; 10-14 moderate; 15-21 severe): 6 Source: Developed by Drs. Nicholas Simpson, Vanita Cortez, Lino Mirza and colleagues, with an educational madeline from [employer]. JOSE CRUZ-7 Assessment Billing JOSE CRUZ-7 Assessment Tool: JOSE CRUZ-7 Assessment 55899 Review of Systems Const All systems reviewed & are unremarkable except as noted in HPI and below ENT Denies change in voice, Denies nasal discharge and Denies sinus pain Card Denies chest pain at rest, Denies chest pain with activity, Denies edema, Denies irregular heart rhythm, Denies claudication, Denies dyspnea, Denies dyspnea on exertion, Denies orthopnea, Denies paroxysmal nocturnal dyspnea and Denies slow heart rate Resp Denies cough, Denies dyspnea and Denies dyspnea on exertion Physical exam (Primary Care) Vital Signs: Last Vital Signs BP 110/72 03/03/24 12:54 BMI result Body Mass Index 25.4 Tobacco/Smoking Status: Tobacco use Status Tobacco use date assessed 03/03/24 03/03/24 13:02 Patient Tobacco Use Status Former Tobacco user 03/03/24 13:02 Tobacco use type Cigarette 03/03/24 13:02 e-Cigarette/Vaping Use Never Used 03/03/24 13:02 PHQ-9: PHQ-9 Score PHQ-9: Total score 5 03/03/24 13:22 Depression Screening Interpretation: Positive Depression Screening Follow-up: Existing condition and Follow-up Visit Requested Thrive Assessment: Date of Thrive Assessment Date Thrive assessed 03/03/24 03/03/24 13:06 Currently or been in a relationship where the following occur: no concerns reported HENMT Head: Yes normal to inspection, Yes normocephalic and Yes atraumatic Ears: external ears normal Eyes General: appearance normal, both eyes and all related structures Eyelids: Yes eyelids normal Conjunctivae: conjunctivae normal Direct Ophthalmoscopy: other (left upper eyelid stye) Neck Neck: Yes normal visual inspection and Yes supple Resp Effort & Inspection: normal respiratory effort Auscultation: clear to auscultation bilaterally Cardio Jugular venous distension: no JVD Rate: regular rate Rhythm: regular rhythm Heart sounds: S1 normal heart sound present and S2 normal heart sound present GI Inspection: Yes normal to inspection Palpation (GI): Soft to palpation and nontender Auscultation: normal bowel sounds Skin General skin exam: no rashes or lesions noted Neuro General: no focal motor deficits Extrem General: Yes full ROM Psych Appearance: grossly normal Results AMB Hemoglobin A1c AMB Hemoglobin A1c 7.9 % Last Edit by ANGELINA Isaacs on 03/03/24 13:1 2 Results Reviewed Results Reviewed: Laboratory Last Values Hgb A1c (Clinic) 7.9 % (4.0-6.0) H 03/03/24 13:12 Assessment and Plan Assessment & Plan (1) Physical exam: Code(s): Z00.00 - Encounter for general adult medical examination without abnormal findings Plan: Repeat in a year. (2) Type 1 diabetes mellitus with hyperglycemia, with long-term current use of insulin: Code(s): E10.65 - Type 1 diabetes mellitus with hyperglycemia Plan: Continue insulin. Follow-up with endocrinology. A1c goal is equal or less than 7%. Orders: Orders AMB Hemoglobin A1c Today E11.9 - Type 2 diabetes mellitus without complications Lipid Panel Today E78.5 - Hyperlipidemia, unspecified Referrals Cologuard Test Z12.11 - Encounter for screening for malignant neoplasm of colon, Z12.12 - Encounter for screening for malignant neoplasm of rectum Medications: New erythromycin 1 appl ophthalmic-Left DAILY 3.5 grams 0RF 5 days H00.019 - Hordeolum externum unspecified eye, unspecified eyelid Coding Level of Care Code Est Pt Prev Care 40-64y(45239) Diagnoses Physical exam Z00.00 Type 1 diabetes mellitus with hyperglycemia, with long-term current use of insulin E10.65 Additional Codes JOSE CRUZ-7 Assessment Billing - JOSE CRUZ-7 Assessment Tool: JOSE CRUZ-7 Assessment 23617 ([id number]) Time Spent (min) 35
== END 2024-03-03 13:49 | disposition home or self-care (01) ==
PROVIDERS: PCP Nurse Practitioner Family; Visit Provider Internal Medicine
DX: E11.9 Type 2 diabetes mellitus without complications (principal)
CPT/HCPCS: 83036; 99396

== ENCOUNTER 2024-03-20 08:48 | Outpatient (REF) | payer OTHER, SELFPAY ==
[2024-03-20 09:55] LABS: Estimated Average Glucose 171 mg/dL; Hemoglobin A1c % 7.6 % (<6.0)
[2024-03-20 09:57] LABS: Cholesterol 155 mg/dL (<200); HDL Cholesterol 71 mg/dL (>40); LDL Cholesterol Calculated 74 mg/dL (<100); Triglycerides 54 mg/dL (<150)
[2024-03-20 10:02] LABS: Alanine Aminotransferase 16 U/L (0-31); Albumin Level 4.2 g/dL (3.5-5.0); Alkaline Phosphatase 62 U/L (39-117); Anion Gap 13 (12-20); Aspartate Amino Transferase 17 U/L (5-31); Bilirubin Total 0.4 mg/dL (0.0-1.0); Blood Urea Nitrogen 15 mg/dL (9-16); Calcium 9.8 mg/dL (8.4-10.2); Carbon Dioxide 23 mmol/L (22-29); Chloride 107 mmol/L (96-108); Estimated Glomerular Filt Rate > 60; Glucose Random 170 mg/dL (60-115); Potassium 4.6 mmol/L (3.3-5.1); Sodium 138 mmol/L (135-145); Total Protein 7.4 g/dL (6.5-8.0)
[2024-03-20 11:07] LABS: Creatinine Urine 45.82 mg/dL; Microalbumin Urine < 5.0 mg/L
== END 2024-03-20 08:49 | disposition home or self-care (01) ==
LOC: HO.LAB 08:48
PROVIDERS: Absent Provider Internal Medicine; PCP Internal Medicine; Visit Provider Internal Medicine
DX: E78.5 Hyperlipidemia, unspecified (principal); E10.69 Type 1 diabetes mellitus with other specified complication; E03.9 Hypothyroidism, unspecified
CPT/HCPCS: 36415; 80053; 80061; 82043; 82570; 83036; 84443

== ENCOUNTER 2024-06-08 15:56 | Outpatient (REF) | payer OTHER, SELFPAY ==
--- NOTE | ~2024-06-08 | MM_ITS ---
EXAMINATION: MM SCREENING DIGITAL BREAST TOMOSYNTHESIS, BILATERAL CLINICAL INFORMATION: Screening. Asymptomatic. COMPARISON: Mammography: Comparison is made with available priors TECHNIQUE: Digital breast mammography with tomosynthesis is performed in both the craniocaudal and mediolateral oblique views along with computer-aided detection (CAD). FINDINGS: The breasts are heterogeneously dense, which may obscure small masses (ACR BI-RADS breast composition Category c). There are no significant masses, abnormal calcifications, or other abnormalities. MM/MM tomosynthesis screening BI IMPRESSION: No mammographic evidence of malignancy. ASSESSMENT: BI-RADS BI-RADS 1 - Negative RECOMMENDATION: Routine annual mammography screening. 1 year F/U This examination should not preclude the clinical evaluation of a suspicious palpable abnormality. This patient's information was entered into a reminder system with a target due date for their next mammogram. Electronically signed by: Lise Odell DO 06/22/2024 01:36 PM EDT
== END 2024-06-08 15:57 | disposition home or self-care (01) ==
LOC: HO.MAMMO 15:56
PROVIDERS: PCP Internal Medicine; Visit Provider Internal Medicine
DX: Z12.31 Encounter for screening mammogram for malignant neoplasm of breast (principal)
CPT/HCPCS: 77063; 77067

== ENCOUNTER → 2024-06-08 16:00 | Outpatient (BNV) | payer OTHER, SELFPAY | PROVIDERS: PCP Internal Medicine; Visit Provider Internal Medicine | DX: Z12.31 Encounter for screening mammogram for malignant neoplasm of breast (principal) | CPT/HCPCS: 77063; 77067 ==

== ENCOUNTER 2024-07-02 15:02 | Outpatient (REF) | payer OTHER, SELFPAY ==
[2024-07-03 14:22] LABS: CT PCR NOT DETECTED (Not Detect.); NG PCR NOT DETECTED (Not Detect.)
[2024-07-04 08:59] LABS: Bacterial Vaginosis PCR POSITIVE (Negative); Candida Group PCR NOT DETECTED (Not Detect); Candida glab krusei PCR NOT DETECTED (Not Detect); Trichomonas vaginalis PCR NOT DETECTED (Not Detect)
[2024-07-06 14:38] LABS: HPV mRNA E6/E7 Not Detected (Not Detected)
== END 2024-07-02 15:03 | disposition home or self-care (01) ==
LOC: HO.LAB 15:02
PROVIDERS: PCP Nurse Practitioner Family; Visit Provider Advanced Practice Midwife
DX: N89.8 Other specified noninflammatory disorders of vagina (principal); Z20.2 Contact with and (suspected) exposure to infections with a predominantly sexual mode of transmission; Z01.419 Encounter for gynecological examination (general) (routine) without abnormal findings; E10.65 Type 1 diabetes mellitus with hyperglycemia; Z79.4 Long term (current) use of insulin; T38.4X5A Adverse effect of oral contraceptives, initial encounter; Z30.09 Encounter for other general counseling and advice on contraception; N88.9 Noninflammatory disorder of cervix uteri, unspecified; Z12.4 Encounter for screening for malignant neoplasm of cervix
CPT/HCPCS: 0352U; 36415; 87491; 87591; 87624; 88175; 99396

== ENCOUNTER 2024-07-02 15:02 | Outpatient (AMB) | payer OTHER, SELFPAY ==
[2024-07-02 15:28] VITALS: BP 88/66; BMI 21.1
--- NOTE | 2024-07-02 15:28 | A.OFFVIS_ITS ---
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 Installer Required: No Information Interpreted: clinical only Allergies lithium [[place]] Allergy (Unknown, Verified 07/02/24 15:29) VOMITTING/DIARRHEA silver [From TEGADERM AG MESH] Allergy (Unknown, Verified 07/02/24 15:29) ITCHY RASH Sulfa (Sulfonamide Antibiotics) Allergy (Unknown, Verified 07/02/24 15:29) RASH,HIVES sulfamethoxazole Allergy (Unknown, Verified 07/02/24 15:29) rash [place] Carbonate Allergy (Unknown, Uncoded 07/02/24 15:29) rash Tegaderm Allergy (Unknown, Uncoded 07/02/24 15:29) Unknown tegaderm Allergy (Unknown, Uncoded 07/02/24 15:29) Unknown Medication List - Last Reconciled 07/02/24 by Adrienne Gaxiola CNM blood sugar diagnostic (Zonare Medical SystemsTouch Verio test strips) As directed blood-glucose sensor (FreeStyle Jose 3 Sensor device) As directed cholecalciferol (vitamin D3) 25 mcg PO DAILY docusate sodium 100 mg PO BID erythromycin 1 appl ophthalmic-Left DAILY 5 days flash glucose sensor (FreeStyle Jose 2 Sensor kit) As directed fluconazole (Diflucan) 150 mg PO DAILY 1 dose hydroxyzine HCl 25 mg PO BID PRN insulin aspart U-100 (Novolog FlexPen U-100 Insulin aspart) 1 sliding scale dose subcut USEASDIRECTD insulin degludec (Tresiba FlexTouch U-100 insulin) units subcut ketotifen fumarate 0.025%(0.035%) (Alaway) 1 drp ophthalmic (eye) BID levothyroxine 100 mcg PO DAILY norethindrone (contraceptive) 0.35 mg PO DAILY NS omeprazole 20 mg PO DAILY pen needle, diabetic (BD Ultra-Fine Mini Pen Needle) As directed sennosides (senna) 17.2 mg PO DAILY topiramate TAKE 1 TABLET BY MOUTH TWICE A DAY Is last menstrual period known: No HPI HPI 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 She thinks she is getting some more yeast infections whenever her blood sugar spikes she is type 1 diabetic for most of her life and has an insulin pump and sensor and often her blood sugars can be 300 in the morning she has a engine buildup mechanic that she likes but communication via the office has been challenging lately and it is all by portal and she does not have an in face appointment until spring. She does not feel great when her blood sugars spike she has an eye appointment in August and was considering waiting till that and if there is some worsening of her eye situation then she was going to have more of a discussion I encouraged her to have a more prone active stands on it and really try to have a conversation with her engine buildup mechanic as her insulin really may need to be adjusted if she is spiking to 300 in the morning twice a week. She will be following up on this as she sees fit she has a primary care provider who she sees and is just switched to somebody new. She is sexually active and definitely wants to stay on the control pills she has noticed the last few periods have been more spotting. She is not really worried about STDs but is open to testing with the exam though does not feel she needs blood work. She has working with [employer] we had to find a job. [facility] Medical History (Updated 07/02/24 @ 16:36 by Adrienne Gaxiola CNM) Abnormality of cervix Anxiety Hypothyroidism Diabetes Surgical History History of rotator cuff surgery Family History Mother Breast cancer, Onset Age: 38 Osteoporosis Social History Housing: Apartment Alcohol intake: current Alcohol intake frequency: holidays/special occasions only Patient Tobacco Use Status: Former Tobacco user Tobacco use type: Cigarette Years Smoked: 10 years e-Cigarette/Vaping Use: Never Used service: No Current occupational status: disabled Cognitive needs: No Hearing needs: No Vision needs: Yes Female Reproductive History Menstrual Age of Menarche: 13 Duration of menses: other control method: pills Total pregnancies: 0 Date of last pap smear: 07/01/23 (neg.2021 + HPV) History of abnormal pap smear: Yes (LIZZY,1996&1997) Date of Mammogram: 06/08/24 (neg.) Physical Exam Vital Signs: Last Vital Signs BP 88/66 L 07/02/24 15:28 BMI result Body Mass Index 21.1 Const Other: Premenopausal patient has thin frame. General: healthy appearing, comfortable, no acute distress, well developed and alert Nutritional Appearance: average body habitus Orientation/consciousness: patient oriented x3 Limitations: no limitations HEENT Head: Yes normocephalic Neck Neck: Yes normal visual inspection Chest Chest palpation & inspection: normal inspection of the chest Breast/axilla inspection: normal inspection of the breasts and normal inspection of the axillae Breast/axilla palpation: normal palpation of the breasts and normal palpation of the axillae Resp Effort & Inspection: normal respiratory effort GI Inspection: Yes normal to inspection, No Abdominal wall edema and No distended Palpation (GI): Soft to palpation and nontender General: Yes bladder normal to palpation External Female Exam: normal external appearance and normal appearance of the urethra Speculum Exam - Vagina: normal appearance of the vagina, normal palpation and normal vaginal discharge Speculum Exam - Cervix: normal appearance of the cervix, normal palpation and nontender Bimanual exam- vagina & uterus: normal bimanual exam, normal palpation, uterine size normal, bladder normal to palpation, consistency normal, normal palpation, uterine mobility normal, uterine shape normal, No Cervical tenderness present, non-tender and no cervical motion tenderness Bimanual Exam- Adnexa, other: normal adnexae, no masses, normal and No adnexal tenderness Neuro General: patient oriented x3 Results Reviewed Results Reviewed: Name: Sunitha Travis Age/Sex: 48/F Attending: Adrienne Gaxiola CNM : 1975 Submitted by: Adrienne Gaxiola CNM Copies to: Mahi Powell MR #: [id number] Status: DEP REF Collected: 06/30/23 Location: [facility] Received: 07/01/23 Interpretation Satisfactory for evaluation. Mild inflammation. Negative for intraepithelial lesion or malignancy. HPV mRNA E6/E7: NOT DETECTED This assay detects E6/E7 viral messenger RNA (mRNA) from 14 high-risk HPV types (16, 18, 31, 33, 35, 39, 45, 51, 52, 56, 58, 59, 66, 68) HPV testing performed by [facility], [place], [place]. See reference laboratory pion of the EMR for entire report. Clinical Information LMP: 06/21/23 Previous PAP test: 06/17/22, abnormal Other history: +HPV, contact with and (suspected) exposure to infections with a predominantly sexual Material Received ThinPrep-Cervical Copies To Mahi Powell [address] [place] [phone] [email or web address] Adrienne Gaxiola CNM [address] [place], [place] [address]Niko Blackwell [address] [place] [id number] Electronically Signed By: LYLA Matthews (ASCP) 07/08/23 0838 The Pap Test is a screening procedure with the inherent possibility of both false negative and false positive results. Results should be interpreted in the context of historic and current clinical findings. Reliability of the Pap Test is enhanced by performing the test on a Patient: Sunitha Travis Age/Sex: 48/F MR#: [id number] Page 1 of 2 Name: Sunitha Travis Age/Sex: 47/F Attending: Adrienne Gaxiola CNM : 1975 Submitted by: Adrienne Gaxiola CNM Copies to: MR #: [id number] Status: DEP REF Collected: 06/17/22 Location: [facility] Received: 06/17/22 Interpretation General Category: Negative for intraepithelial lesion/malignancy. Adequacy: Endocervical component present. Interpretation: Reactive cellular changes. HPV mRNA E6/E7: DETECTED This assay detects E6/E7 viral messenger RNA (mRNA) from 14 high-risk HPV types (16, 18, 31, 33, 35, 39, 45, 51, 52, 56, 58, 59, 66, 68) HPV Type 16 RNA: Not Detected HPV Type 18/45 RNA: Not Detected HPV testing performed by [facility], [place], [place]. See reference laboratory portion of the EMR for entire report. Clinical Information LMP: 06/01/22 Previous PAP test: 08/22/10, WNL Material Received ThinPrep-Cervical Electronically Signed By: Lise Larios 07/03/22 1414 The Pap Test is a screening procedure with the inherent possibility of both false negative and false positive results. Results should be interpreted in the context of historic and current clinical findings. Reliability of the Pap Test is enhanced by performing the test on a regular repetitive basis. Patient: Sunitha Travis Age/Sex: 47/F MR#: [id number] Page 1 of 1 Assessment & Plan Assessment & Plan (1) Type 1 diabetes mellitus with hyperglycemia, with long-term current use of insulin: Comment: Has pump and sensor reports at least 2 spikes of blood sugar to 300s in am in a week, patient will be discussing with endocrinology. Code(s): E10.65 - Type 1 diabetes mellitus with hyperglycemia Category: Medical (2) Adverse reaction to control pills: Comment: Has usually taken ?[place]? brand of norethindrone OCPs. In June she was given a generic of norethindrone manufactured by [employer] and cited completely abnormal blood sugars until she was able to get back on the Rita. Discussion occurred with pharmacist today to try and attempt to get OCPs from different security door installer, Code(s): T38.4X5A - Adverse effect of oral contraceptives, initial encounter Category: Medical (3) Yeast infection of the vagina: Comment: Thinks is mild at the moment, but pt is type 1 DM, offering prn rx for diflucan, along with Monistat for comfort Code(s): B37.3 - Candidiasis of vulva and vagina Category: Medical (4) control counseling: Code(s): Z30.09 - Encounter for other general counseling and advice on contraception Category: Medical (5) Abnormality of cervix: Comment: irregular bumps at internal os seen on 06/17/22 exam. HPV pos, cytology neg. Per [facility] repeat Pap in 1 year.; Today, 06/30/23- cervix gives appearance of having had LEEP in the past and nabothian cysts Pap done.; 07-21 Pap is negative with negative HPV.; 07/02/2024 cervix has definite appearance of past leaps patient is thinking now on reviewing history she may have had a 1 but she had come out of a coma at the time so does not have complete memory. Code(s): N88.9 - Noninflammatory disorder of cervix uteri, unspecified Category: Medical (6) Cervical cancer screening: Code(s): Z12.4 - Encounter for screening for malignant neoplasm of cervix Category: Medical (7) Well woman exam with routine gynecological exam: Code(s): Z01.419 - Encounter for gynecological examination (general) (routine) without abnormal findings Category: Medical Plan -----Discussed in this visit the following: healthy balanced diet, regular and consistent exercise, getting recommended health screens, doing the best she can for her particular health concerns, kegel exercises, pap smear screening and followup recommendations, mammography screening and SBE, normal changes in cycles in her life stage--- . Reviewed her history in HPI in detail encouraged her to reach out to her engine buildup mechanic as twice a week to have spikes to 300s in the morning seems like a lot. She is aware though that she prefers that to having them drops so low overnight that she would pass out as that would not be good either. She knows she does not feel good whenever that high though and she thinks that is what is encouraging yeast infections though there are minor annoyance in comparison. Will treat with Diflucan with 5 refills that she can use as she sees fit she can repeat the dose in 3 days if she is still symptomatic. I am also going to send a prescription for Monistat cream that she can use at her desire if she is mildly symptomatic. She may find that soothing Discussed the OCPs she is still sexually active so she wants the control pills if at some point she became not sexually active and was amenorrheic for year that it would be appropriate to consider doing an FSH to see if she was in menopause however at this time she would have to stop her control pills and in fact she is still getting menses so would not make sense to do now this be for the future as she was questioning if she was in menopause at a previous conversation. She recently had a mammogram and was told it might take a few weeks to get the results so she has not gotten results yet. In terms of taking care for diabetes she feels her diet is good. Orders: Orders PAP + HPV E6/E7 rfx 18/45 Today Z01.419 - Encounter for gynecological examination (general) (routine) without abnormal findings CT NG by PCR Today N89.8 - Other specified noninflammatory disorders of vagina, Z20.2 - Contact with and (suspected) exposure to infections with a predominantly sexual mode of transmission Bacterial Vaginosis Panel Today N89.8 - Other specified noninflammatory disorders of vagina Medications: New miconazole nitrate 2% (Miconazole-7) Use p.r.n. for symptomatic relief of yeast 1 appful vaginal BEDTIME 7 days 45 grams 3RF fluconazole may repeat second dose 72 hrs after first dose if symptoms persist 150 mg PO Q3D 2 doses 2 tabs 5RF Refilled norethindrone (contraceptive) Patient requests Glenda Mcelroy, no substitutions. Please provide if at all available 0.35 mg PO DAILY 84 tabs 4RF NS Coding Level of Care Code Est Pt Prev Care 40-64y(36979) Diagnoses Type 1 diabetes mellitus with hyperglycemia, with long-term current use of insulin E10.65 Adverse reaction to control pills T38.4X5A Yeast infection of the vagina B37.3 control counseling Z30.09 Abnormality of cervix N88.9 Cervical cancer screening Z12.4 Well woman exam with routine gynecological exam Z01.419
== END 2024-07-02 16:39 | disposition home or self-care (01) ==
PROVIDERS: PCP Nurse Practitioner Family; Visit Provider Advanced Practice Midwife
DX: Z01.419 Encounter for gynecological examination (general) (routine) without abnormal findings (principal); T38.4X5A Adverse effect of oral contraceptives, initial encounter; N88.9 Noninflammatory disorder of cervix uteri, unspecified; E10.65 Type 1 diabetes mellitus with hyperglycemia
CPT/HCPCS: 99396

== ENCOUNTER 2024-08-02 16:16 | Outpatient (REF) | payer OTHER, SELFPAY ==
[2024-08-02 17:19] LABS: Appearance Urine Clear; Color Urine Orange; Glucose Urine UA 100 mg/dL (Negative); UMIC TRIGGER UACC YES; Urine Blood Negative (Negative); Urine Ketones 15 mg/dL (Negative)
[2024-08-02 17:49] LABS: Bacteria Urine 2+ (None Seen); Hyaline Casts Urine 0-2 /LPF (0-2); RBC Urine 0-2 /HPF (0-2); UACC Culture Trigger YES; WBC Urine 21-50 /HPF (0-5)
== END 2024-08-02 16:17 | disposition home or self-care (01) ==
LOC: HO.LAB 16:16
PROVIDERS: PCP Internal Medicine; Visit Provider Internal Medicine
DX: R30.0 Dysuria (principal)
CPT/HCPCS: 81001; 81003; 87086

== ENCOUNTER 2024-10-14 11:15 | Outpatient (REF) | payer OTHER, SELFPAY ==
[2024-10-14 11:46] LABS: MANUAL DIFF FLAG NO
[2024-10-14 12:05] LABS: Basophils Percent Auto 0.3 % (0-2); Eosinophils Absolute Auto 0.1 X10*3/uL (0.0-0.4); Eosinophils Percent Auto 0.6 % (0-4); Hematocrit 42.2 % (37.0-47.0); Imm Gran Abs Auto 0.03 X10*3/uL (0.00-0.03); Imm Gran Pct Auto 0.3 % (0.0-0.4); Lymphocytes Absolute Auto 1.6 X10*3/uL (1.2-4.9); Lymphocytes Percent Auto 18.5 % (20-40); Mean Corpuscular HGB Conc 35.5 g/dl (31.0-35.0); Mean Corpuscular Hemoglobin 33.9 pg (27.0-33.0); Mean Corpuscular Volume 95.3 fL (80.0-98.0); Mean Platelet Volume 9.5 fL (9.4-12.3); Monocytes Absolute Auto 0.5 X10*3/uL (0.1-1.2); Monocytes Percent Auto 5.6 % (2-11); Neutrophils Absolute Auto 6.4 x10*3/uL (2.0-8.3); Neutrophils Percent Auto 74.7 % (45-73); Platelet Count 261 X10*3/uL (160-400); Red Blood Count 4.43 X10*6/uL (4.20-5.50); Red Cell Distribution Width 11.7 % (11.0-16.0); White Blood Count 8.6 X10*3/uL (4.8-10.8)
[2024-10-14 12:17] LABS: Estimated Average Glucose 192 mg/dL; Hemoglobin A1C 265.2184 umol/L; Hemoglobin A1c % 8.3 % (<6.0); Total Hemoglobin (HGBA1C) 3957.1221 umol/L
[2024-10-14 12:21] LABS: Appearance Urine Cloudy; Color Urine Yellow; Glucose Urine UA >=1000 mg/dL (Negative); Leukocyte Esterase Urine Negative (Negative); Nitrite Urine Negative (Negative); PH 6.5 (5.0-9.0); Specific Gravity - Urine >= 1.030 (1.005-1.025); UMIC TRIGGER UACC YES; Urine Blood Negative (Negative); Urine Ketones 15 mg/dL (Negative); Urine Protein Negative (Neg-Trace)
[2024-10-14 12:36] LABS: Bacteria Urine Trace (None Seen); Hyaline Casts Urine 0-2 /LPF (0-2); RBC Urine 0-2 /HPF (0-2); Squamous Epithelial Cell Urine >20 /HPF (0-2); WBC Urine 0-5 /HPF (0-5)
[2024-10-14 12:55] LABS: Creatinine Urine 61.18 mg/dL; Microalbumin Urine < 5.0 mg/L
[2024-10-14 12:56] LABS: Alanine Aminotransferase 22 U/L (0-31); Albumin Level 4.2 g/dL (3.5-5.0); Alkaline Phosphatase 67 U/L (39-117); Anion Gap 9 (12-20); Aspartate Amino Transferase 21 U/L (5-31); Bilirubin Total 0.3 mg/dL (0.0-1.0); Blood Urea Nitrogen 15 mg/dL (9-16); Calcium 8.8 mg/dL (8.4-10.2); Carbon Dioxide 24 mmol/L (22-29); Chloride 108 mmol/L (96-108); Cholesterol 156 mg/dL (<200); Estimated Glomerular Filt Rate > 60; Glucose Random 325 mg/dL (60-115); HDL Cholesterol 71 mg/dL (>40); LDL Cholesterol Calculated 78 mg/dL (<100); Potassium 4.4 mmol/L (3.3-5.1); Sodium 137 mmol/L (135-145); Total Protein 7.7 g/dL (6.5-8.0); Triglycerides 37 mg/dL (<150)
[2024-10-14 13:18] LABS: Folate 15.2 ng/mL (> or = 4.0); Vitamin B12 714 pg/mL (200-900)
--- OUTSIDE RECORDS SUMMARY | 2024-10-14 14:12 | XMS_ITS | Data Portability ---
Author Organization [facility] Address [address] [place] [id number] Care Team Providers Care Family Practice [facility] Name Role Phone [facility] Referring Provider Assessment No assessment recorded. Plan of Treatment Reminders Order Date Submit Date Provider Last Modified By Organization Details Last Modified Time Details Appointments None recorded. Lab unlisted lab - urinalysis w/reflex culture 2021 022 [email or web address] [facility], [address] [place], [address], 15:18:14 Referral None recorded. Procedures None recorded. Surgeries None recorded. Imaging None recorded. Medication Orders nitrofurant oin monohydrate /macrocryst als 100 mg capsule 2021 022 [email or web address] [id number], [address] [place], [address], 2 10:43:10 Pyridium 100 mg tablet 2021 022 EDY [id number], [address] [place], [address], 2 10:31:31 Patient TargetsNo targets recorded. Patient InstructionsNo instructions recorded. Reason for Referral None Reported. Medical Equipment None Reported. Medications Name Sig Start Date Stop Date Status Note LastModified by Organization Details LastModified Time amoxicillin 500 mg capsule TAKE 1 CAPSULE (500MG) BY ORAL ROUTE EVERY 8 HOURS UNTIL DONE active Not Available Not Available No t Available senna 8.6 mg tablet TAKE 2 TABLETS BY MOUTH AT BEDTIME NEEDED FOR CONSTIPATIO N 30 active Not Available Not Available No t Available Pyridium 100 mg tablet Take 1 tablet 3 times a day by oral route for 2 days. 02/27/ 2022 active Not Available Not Available Not Avai lable levothyroxin e 100 mcg tablet TAKE 1 TABLET BY MOUTH EVERY DAY FOR 90 DAYS active Not Available Not Available No t Available cephalexin 500 mg capsule TAKE 1 CAPSULE BY MOUTH EVERY 12 HOURS FOR 7 DAYS active Not Available Not Available N ot Available ibuprofen 400 mg tablet TAKE 1 TABLET BY MOUTH EVERY 4 TO 6 HOURS NEEDED active Not Available Not Available No t Available docusate sodium 100 mg capsule TAKE 100 MG BY MOUTH TWICE A DAY active Not Available Not Available Not Available omeprazole 20 mg capsule,lennie yed release TAKE 1 CAPSULE BY MOUTH EVERY DAY active Not Available Not Available No t Available hydroxyzine HCl 25 mg tablet TAKE 1 TABLET BY MOUTH TWICE A DAY NEEDED FOR ANXIETY active Not Available Not Available No t Available metronidazol e 375 mg capsule TAKE 1 CAPSULE BY MOUTH ONCE 1 DAY FOR YEAST OVERGROWTH DUE TO ANTIBIOTIC USE active Not Available Not Available No t Available clindamycin 1 % lotion APPLY TWICE DAILY TO AFFECTED AREAS ON FACE NEEDED. active Not Available Not Available No t Available Vitamin D3 25 mcg (1,000 unit) capsule TAKE 2 CAPSULES BY MOUTH EVERY DAY FOR 30 DAYS active Not Available Not Available No t Available Novolog FlexPen U-100 Insulin aspart 100 unit/mL (3 mL) subcutaneous INJECT 4-12 UNITS 4 TIMES A DAY BEFORE MEALS AND CORRECTION active Not Available Not Available N ot Available topiramate 50 mg tablet TAKE 1 TABLET BY MOUTH TWICE A DAY active Not Available Not Available No t Available nitrofuranto in monohydrate/ macrocrystal s 100 mg capsule TAKE 1 CAPSULE EVERY 12 HOURS BY ORAL ROUTE FOR 3 DAYS. active Not Available Not Available Not Available BD Ultra-Fine Mini Pen Needle 31 gauge x 3/16 USE TO INJECT 7 TIMES PER DAY FOR 90 DAYS active Not Available Not Available No t Available chlorhexidin e gluconate 0.12 % mouthwash SWISH 15 ML IN MOUTH FOR 30 SECONDS THEN SPIT OUT TWICE A DAY AFTER MEALS active Not Available Not Available No t Available Alaway 0.025 % (0.035 %) eye drops INSTILL 1 DROP IN AFFECTED EYE(S) TWICE DAILY AT LEAST 8 HOURS APART active Not Available Not Available Not Available Lantus Solostar U-100 Insulin 100 unit/mL (3 mL) subcutaneous pen INJECT 16 TO 18 UNITS INTO THE SKIN AT BEDTIME. USE 2 UNITS TO PRIME PEN WITH EACH DOSE 75 active Not Available Not Available No t Available OneTouch Verio test strips TO TEST BLOOD GLUCOSE 7 TIMES PER DAY 30 DAYS active Not Available Not Available Not Available FreeStyle Jose 2 Sensor kit CHANGE EVERY 14 DAYS active Not Available Not Available No t Available Vitals Date Recorded Heart rate Respiratory rate Oxygen saturation Oxygen saturation in Arterial blood by Pulse oximetry Body temperature Systolic blood pressure Diastolic blood pressure Provider Name and Address Organization Details Last Updated DateTime 2 100 /min 16 /min 100 % 100 % 98.4 [degF] 131 mm[Hg] 83 mm[Hg] Kenyetta Bae MD [address] [place] [address],[address], [place], [phone] [place] [address] 2 10:28:13 Social History None recorded. Functional Status None recorded. Mental Status None recorded. Family History Nothing Reported. Medical History No medical history recorded. Gynecological HistoryNo gynecological history recorded. Obstetrics History GPAL:G 0 P 0 0 0 0 Past Encounters Encounter ID Performer Location Encounter Start Date Encounter Closed Date Diagnosis/Indication Diagnosis SNOMED-CT Code Diagnosis ICD10 Code Diagnosis Note [id number] Kenyetta Bae MD [address] [phone] 11/25/2021 09:35:38 05/30/2022 15:05:25 Acute urinary tract infection [id number] N39.0 Sx c/w uncompilca gavin UTI w/o pyelonephr itis. Urine dip not able to be read 2/2 color change from OTC med (uristat). Will empiricall y treat w/ Macrobid and sent UA with reflex cx.Red flag symptoms reviewed, pt instructed to call 911 if condition worsens or new symptoms develop, pt expressed understand ing. Health Concerns Section Related Observation LastModified by Organization Detai ls LastModified Time None Recorded Concern Status LastModified by Organization Details LastModified Time None Recorded Advance Directives Directive None Recorded Payers Encounter Date Sequence Insurance Name Policy Number Policy Prasad Covered Member ID Prasad Member ID Guarantor Name 11/25/[address] [facility] - DOS PRIOR TO 2022 - DUAL ELIGIBLE (MEDICARE REPLACEMENT/ADV ANTAGE - HMO) Sunitha Travis [id number] Sunitha Travis Notes Date Note Type Note Provider Name and Address Organization Details Recorded Time 11/25/2021 text/html Per request: 46 yo F calls in with c/o UTI symptoms x2 days. Member with urinary frequency and burning with urination, denies abd pain, denies fevers. Member states she took an OTC UTI test and it was positive. 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 upon arrival patient answered door and states that she thinks she has a UTI. patient is alert and oriented, has a patent airway and appears to be in no apparent distress. patient states that the pain on urination started around the 15 of November and states she took cranberry pills and the symptoms subsided but returned two days ago. patient states she took an OTC UTI test and states it was positive. patient states it was called Uristat and she took the pills yesterday and today and feels better. vitals obtained and are BP: 131/83 HR: 100 RR: 16 SPO2: 100 RA Temp: 98.4. patient has no other complaints and denies any CP/SOB/N/V/D. DR consulted and states to obtain urine dip. Urine dip obtained and unable to be read due to pigmentation from medication in patients urine. urine packaged and to be sent to lab for culture. antibiotics to be sent to pharmacy for patient, patient to brass pickler today and start first dose. red flags discussed with the patient and patient advised should any red flags arise to be seen at the emergency room. cleared without incident. Kenyetta Bae MD [address] [facility],[address], [place], [phone], [facility] 11/25/2021 11:31:58 OBGyn Episode No OBEpisode recorded.
== END 2024-10-14 11:16 | disposition home or self-care (01) ==
LOC: HO.LAB 11:15
PROVIDERS: Absent Provider Internal Medicine; PCP Internal Medicine; Visit Provider Internal Medicine
DX: E10.69 Type 1 diabetes mellitus with other specified complication (principal); E03.9 Hypothyroidism, unspecified
CPT/HCPCS: 36415; 80053; 80061; 81001; 82570; 82607; 82746; 83036; 84443; 85025

== ENCOUNTER 2024-10-18 12:08 | Outpatient (AMB) | payer OTHER, SELFPAY ==
--- NOTE | 2024-10-18 12:11 | MHC.PC.OV ---
Intake Visit Reasons: skin concern, and fragile nails Saddle And Side Wire Stitcher Required: No Accompanied by: Self / Same As Patient Allergies lithium [[place]] Allergy (Unknown, Verified 10/18/24 12:42) VOMITTING/DIARRHEA silver [From TEGADERM AG MESH] Allergy (Unknown, Verified 10/18/24 12:42) ITCHY RASH Sulfa (Sulfonamide Antibiotics) Allergy (Unknown, Verified 10/18/24 12:42) RASH,HIVES sulfamethoxazole Allergy (Unknown, Verified 10/18/24 12:42) rash [place] Carbonate Allergy (Unknown, Uncoded 10/18/24 12:42) rash Tegaderm Allergy (Unknown, Uncoded 10/18/24 12:42) Unknown tegaderm Allergy (Unknown, Uncoded 10/18/24 12:42) Unknown Medication List - Last Reconciled 10/18/24 by Kelly Jolly MD blood sugar diagnostic (Dealer TireTouch Verio test strips) As directed blood-glucose sensor (FreeStyle Jose 3 Sensor device) As directed cholecalciferol (vitamin D3) 25 mcg PO DAILY docusate sodium 100 mg PO BID flash glucose sensor (FreeStyle Jose 2 Sensor kit) As directed fluvoxamine mg PO BEDTIME hydroxyzine HCl 25 mg PO BID PRN insulin aspart U-100 (Novolog FlexPen U-100 Insulin aspart) 1 sliding scale dose subcut USEASDIRECTD insulin degludec (Tresiba FlexTouch U-100 insulin) units subcut ketotifen fumarate 0.025%(0.035%) ([place]) 1 drp ophthalmic (eye) BID levothyroxine 100 mcg PO DAILY norethindrone (contraceptive) 0.35 mg PO DAILY NS omeprazole 20 mg PO DAILY pen needle, diabetic (BD Ultra-Fine Mini Pen Needle) As directed sennosides (senna) 17.2 mg PO DAILY topiramate TAKE 1 TABLET BY MOUTH TWICE A DAY Tobacco use date assessed: 10/18/24 Dental Screening Dental Screen Date: 10/18/24 Did you have a dental visit in the last 12 months?: No Did you have a dental problem in the last 6 months where you did not have access to dental care?: No Was dental information given to patient?: Patient has dentist HPI HPI Comments History of Present Illness Details This is a 49-year-old female with diabetes mellitus type 1 on insulin follow by Endocrinology, hypothyroidism, mild major depression and anxiety follow by Psychiatry that has tele health visit by video today complaining of mites in eyes diagnosed by Ophthalmology which want her to be seen by Dermatology and treated for it but court registry officer thinks that it is ocular rosacea instead. She denies any blurry vision. She would like a referral to Ophthalmology and Dermatology. She is aware of recent labs having an A1c of 8.3% in which I recommended to call Endocrinology and discuss this with her. She just started fluvoxamine and is feeling like more racing thoughts and would like to stop it and I told her to hold the dose of today and call her psychiatrist tomorrow. TSH normal. [facility] Medical History (Updated 10/18/24 @ 12:46 by Kelly Jolly MD) Diabetes Abnormality of cervix Anxiety Hypothyroidism Surgical History History of rotator cuff surgery Family History Mother Breast cancer, Onset Age: 38 Osteoporosis Social History Housing: Apartment Alcohol intake: current Alcohol intake frequency: holidays/special occasions only Patient Tobacco Use Status: Former Tobacco user Tobacco use type: Cigarette Years Smoked: 10 years e-Cigarette/Vaping Use: Never Used Second Hand Smoke Exposure: No service: No Current occupational status: disabled Cognitive needs: No Hearing needs: No Vision needs: Yes Female Reproductive History Menstrual Age of Menarche: 13 Questionnaire PHQ-9 Over the last 2 weeks, how often have you been bothered by any of the following problems? 1. Little interest or pleasure in doing things: several days 2. Feeling down, depressed, or hopeless: nearly every day 3. Trouble falling or staying asleep, or sleeping too much: not at all 4. Feeling tired or having little energy: several days 5. Poor appetite or overeating: several days 6. Feeling bad about yourself - or that you are a failure or have let yourself or your family down: not at all 7. Trouble concentrating on things, such as reading the newspaper or watching television: not at all 8. Moving or speaking so slowly that other people could have noticed. Or the opposite - being so fidgety or restless that you have been moving around a lot more than usual: not at all 9. Thoughts that you would be better off or of hurting yourself in some way: not at all Total score: 6 Depression Screening Interpretation: Positive Depression Screening Follow-up: Existing condition, In treatment, Community Mental Health Worker F/U and Follow-up Visit Requested Depression Screening Done: Yes 82604 - PHQ-9 Billing: Yes Source: Developed by Drs. Nicholas Simpson, Vanita Cortez, Lino Mirza and colleagues, with an educational madeline from [email or web address]. Thrive Questionnaire Date Thrive assessed: 10/18/24 I am a: Patient What is your living situation today?: I have a steady place to live Within the past 12 months, did the food you bought not last and you didn't have the money to get more?: Never true Within the past 12 months, did you worry whether your food would run out before you got money to buy more?: Never true Do you have trouble paying for medicines?: No Do you have trouble getting transportation to medical appointments?: No Do you have trouble paying your heating and electricity bill?: No Do you have trouble taking care of your child, family member or friend?: No Do you have trouble with day-to-day activities such as bathing, preparing meals, shopping, managing finances, etc.?: No Are you currently unemployed and looking for a job?: No Are you interested in more education?: No Please select the resources that you would like help with: None Currently or been in a relationship where the following occur: No concerns reported THRIVE Score: 0 AUDIT C Alcohol Use Questionnaire (AUDIT-C) 1. How often do you have a drink containing alcohol?: Monthly or less 2. How many drinks containing alcohol do you have on a typical day when you are drinking?: 1 or 2 3. How often do you have six or more drinks on one occasion?: Never Total Score: 1 Score Reviewed/Action Taken: No JOSE CRUZ-7 AMB Questionnaire JOSE CRUZ-7 Date JOSE CRUZ - 7 assessed: 10/18/24 Feeling nervous, anxious, or on edge: 3 = Nearly every day Not being able to stop or control worryin = Not at all Worrying too much about different things: 1 = Several days Trouble relaxin = Several days Being so restless that it is hard to sit still: 0 = Not at all Becoming easily annoyed or irritable: 1 = Several days Feeling afraid as if something awful might happen: 0 = Not at all Total JOSE CRUZ-7 score (0-4 normal; 5-9 mild; 10-14 moderate; 15-21 severe): 6 Source: Developed by Drs. Nicholas Simpson, Vanita Cortez, Lino Mirza and colleagues, with an educational madeline from [email or web address]. JOSE CRUZ-7 Assessment Billing JOSE CRUZ-7 Assessment Tool: JOSE CRUZ-7 Assessment 90608 Review of Systems Const All systems reviewed & are unremarkable except as noted in HPI and below Card Denies chest pain at rest, Denies chest pain with activity, Denies edema, Denies irregular heart rhythm, Denies claudication, Denies dyspnea, Denies dyspnea on exertion, Denies orthopnea, Denies paroxysmal nocturnal dyspnea and Denies slow heart rate Resp Denies cough, Denies dyspnea and Denies dyspnea on exertion Neuro Reports behavioral changes Psych Reports anxiety, Reports behavioral changes and Reports depression Physical exam (Primary Care) Tobacco/Smoking Status: Tobacco use Status Tobacco use date assessed 10/18/24 10/18/24 12:21 Patient Tobacco Use Status Former Tobacco user 10/18/24 12:21 Tobacco use type Cigarette 10/18/24 12:21 e-Cigarette/Vaping Use Never Used 10/18/24 12:21 PHQ-9: PHQ-9 Score PHQ-9: Total score 6 10/18/24 12:21 Depression Screening Interpretation: Positive Depression Screening Follow-up: Existing condition, In treatment, Community Mental Health Worker F/U and Follow-up Visit Requested Thrive Assessment: Date of Thrive Assessment Date Thrive assessed 10/18/24 10/18/24 12:21 Currently or been in a relationship where the following occur: No concerns reported Office Procedures Flu Questionnaire Does the patient have a severe egg allergy?: No Immunizations Fluarix Triv [id number] (PF) 45 mcg (15 mcg x 3)/0.5 mL IM syringe Performing Provider: Kelly Jolly MD Performing [facility]: [facility] Documented (not given) by: ANGELINA Isaacs on 10/18/24 12:21 Reason Not Given: Not Given Telehealth Telehealth Telehealth Platform: Telephone Location of provider rendering services: practice address Location of patient: address on file Patient Identification confirmed using: Name, : Yes Telehealth method: video Patient verbally consented to treatment: Yes Patient verbally consented to billing insurance company: Yes Patient informed of any privacy concerns related to visit: Yes Minutes spent on Phone/Video with Pt.: 15 Coding Level of Care Code Tele Est Pt Level 4 (45971) Complex EM visit Add On G2211 Diagnoses Type 1 diabetes mellitus with hyperglycemia, with long-term current use of insulin E10.65 Hypothyroidism E03.9 Mild recurrent major depression F33.0 JOSE CRUZ (generalized anxiety disorder) F41.1 Additional Codes PHQ-9 - 21634 - PHQ-9 Billing: Yes ([id number]) JOSE CRUZ-7 Assessment Billing - JOSE CRUZ-7 Assessment Tool: JOSE CRUZ-7 Assessment 92544 ([id number]) Time Spent (min) 15 Assessment & Plan Assessment & Plan (1) Type 1 diabetes mellitus with hyperglycemia, with long-term current use of insulin: Comment: Has pump and sensor reports at least 2 spikes of blood sugar to 300s in am in a week, patient will be discussing with endocrinology. Code(s): E10.65 - Type 1 diabetes mellitus with hyperglycemia Category: Medical (2) Hypothyroidism: Code(s): E03.9 - Hypothyroidism, unspecified Category: Medical (3) Mild recurrent major depression: Code(s): F33.0 - Major depressive disorder, recurrent, mild Category: Medical (4) JOSE CRUZ (generalized anxiety disorder): Code(s): F41.1 - Generalized anxiety disorder Category: Medical Plan For her diabetes mellitus type 1 she needs to contact her engineering agent tomorrow and let her know about her elevated A1c. Continue levothyroxine same dose. I told her to hold fluvoxamine 2 night for her depression with anxiety and contact her psychiatrist tomorrow. Referral to ophthalmology was done. Dermatology referral was done 10/13/2024. Orders: Orders Influenza [id number] Immunization Today Z23 - Encounter for immunization Referrals Ophthalmology Referral E10.65 - Type 1 diabetes mellitus with hyperglycemia
== END 2024-10-18 17:22 | disposition home or self-care (01) ==
LOC: HO.HMCH 12:08
PROVIDERS: PCP Internal Medicine; Visit Provider Internal Medicine
DX: E10.65 Type 1 diabetes mellitus with hyperglycemia (principal); E03.9 Hypothyroidism, unspecified; F33.0 Major depressive disorder, recurrent, mild; F41.1 Generalized anxiety disorder

== ENCOUNTER → 2024-10-18 12:08 | Outpatient (BNVA) | payer OTHER, SELFPAY | PROVIDERS: PCP Internal Medicine; Visit Provider Internal Medicine | DX: E10.65 Type 1 diabetes mellitus with hyperglycemia (principal); E03.9 Hypothyroidism, unspecified; F33.0 Major depressive disorder, recurrent, mild; F41.1 Generalized anxiety disorder | CPT/HCPCS: 96127 ==

== ENCOUNTER 2025-01-06 14:50 | Outpatient (AMB) | payer OTHER, SELFPAY ==
--- NOTE | 2025-01-06 14:51 | MHC.PC.OV ---
Intake Visit Reasons: dm [phone] Extrusion Utility Worker Required: No Accompanied by: Self / Same As Patient Allergies lithium [[place]] Allergy (Unknown, Verified 01/06/25 14:55) VOMITTING/DIARRHEA silver [From TEGADERM AG MESH] Allergy (Unknown, Verified 01/06/25 14:55) ITCHY RASH Sulfa (Sulfonamide Antibiotics) Allergy (Unknown, Verified 01/06/25 14:55) RASH,HIVES sulfamethoxazole Allergy (Unknown, Verified 01/06/25 14:55) rash [place] Carbonate Allergy (Unknown, Uncoded 10/18/24 12:42) rash Tegaderm Allergy (Unknown, Uncoded 10/18/24 12:42) Unknown tegaderm Allergy (Unknown, Uncoded 10/18/24 12:42) Unknown Tobacco use date assessed: 10/18/24 Dental Screening Dental Screen Date: 10/18/24 HPI HPI Comments History of Present Illness Details This is a 49-year-old female with diabetes mellitus type 1 on long-term current use of insulin follow by Endocrinology, hypothyroidism, mild major depression and anxiety that has tele health visit by video for follow-up on her conditions. Last TSH was normal. Blood glucose has been stable and this is follow by Endocrinology but she is having a hard time with transportation. Depression with anxiety with no significant changes. [facility] Medical History (Updated 12/10/24 @ 16:47 by Kelly Jolly MD) Diabetes Abnormality of cervix Anxiety Hypothyroidism Surgical History History of rotator cuff surgery Family History Mother Breast cancer, Onset Age: 38 Osteoporosis Social History Housing: Apartment Alcohol intake: current Alcohol intake frequency: holidays/special occasions only Patient Tobacco Use Status: Former Tobacco user Tobacco use type: Cigarette Years Smoked: 10 years e-Cigarette/Vaping Use: Never Used Second Hand Smoke Exposure: No service: No Current occupational status: disabled Cognitive needs: No Hearing needs: No Vision needs: Yes Female Reproductive History Menstrual Age of Menarche: 13 Questionnaire PHQ-9 Over the last 2 weeks, how often have you been bothered by any of the following problems? 1. Little interest or pleasure in doing things: several days 2. Feeling down, depressed, or hopeless: several days 3. Trouble falling or staying asleep, or sleeping too much: not at all 4. Feeling tired or having little energy: several days 5. Poor appetite or overeating: not at all 6. Feeling bad about yourself - or that you are a failure or have let yourself or your family down: not at all 7. Trouble concentrating on things, such as reading the newspaper or watching television: not at all 8. Moving or speaking so slowly that other people could have noticed. Or the opposite - being so fidgety or restless that you have been moving around a lot more than usual: not at all 9. Thoughts that you would be better off or of hurting yourself in some way: not at all Total score: 3 Source: Developed by Drs. Nicholas Simpson, Vanita Cortez, Lino Mirza and colleagues, with an educational madeline from [employer]. Thrive Questionnaire Date Thrive assessed: 01/06/25 I am a: Patient What is your living situation today?: I have a steady place to live Within the past 12 months, did the food you bought not last and you didn't have the money to get more?: Never true Within the past 12 months, did you worry whether your food would run out before you got money to buy more?: Never true Do you have trouble paying for medicines?: No Do you have trouble getting transportation to medical appointments?: No Do you have trouble paying your heating and electricity bill?: No Do you have trouble taking care of your child, family member or friend?: No Do you have trouble with day-to-day activities such as bathing, preparing meals, shopping, managing finances, etc.?: No Are you currently unemployed and looking for a job?: No Are you interested in more education?: No Please select the resources that you would like help with: None Currently or been in a relationship where the following occur: No concerns reported THRIVE Score: 0 AUDIT C Alcohol Use Questionnaire (AUDIT-C) 1. How often do you have a drink containing alcohol?: Monthly or less 2. How many drinks containing alcohol do you have on a typical day when you are drinking?: 1 or 2 3. How often do you have six or more drinks on one occasion?: Never Total Score: 1 Score Reviewed/Action Taken: No JOSE CRUZ-7 AMB Questionnaire JOSE CRUZ-7 Date JOSE CRUZ - 7 assessed: 01/06/25 Feeling nervous, anxious, or on edge: 2 = More than half the days Not being able to stop or control worryin = Not at all Worrying too much about different things: 1 = Several days Trouble relaxin = Several days Being so restless that it is hard to sit still: 0 = Not at all Becoming easily annoyed or irritable: 1 = Several days Feeling afraid as if something awful might happen: 0 = Not at all Total JOSE CRUZ-7 score (0-4 normal; 5-9 mild; 10-14 moderate; 15-21 severe): 5 Source: Developed by Drs. Nicholas Simpson, Vanita Cortez, Lino Mirza and colleagues, with an educational madeline from [employer]. Review of Systems Const All systems reviewed & are unremarkable except as noted in HPI and below Card Denies chest pain at rest, Denies chest pain with activity, Denies edema, Denies irregular heart rhythm, Denies claudication, Denies dyspnea, Denies dyspnea on exertion, Denies orthopnea, Denies paroxysmal nocturnal dyspnea and Denies slow heart rate Resp Denies cough, Denies dyspnea and Denies dyspnea on exertion GI Denies abdominal pain, Denies change in bowel habits, Denies excessive flatus, Denies nausea and Denies vomiting Denies urinary incontinence, Denies urinary hesitancy and Denies urinary urgency Physical exam (Primary Care) Tobacco/Smoking Status: Tobacco use Status Tobacco use date assessed 10/18/24 01/06/25 14:58 Patient Tobacco Use Status Former Tobacco user 01/06/25 14:58 Tobacco use type Cigarette 01/06/25 14:58 e-Cigarette/Vaping Use Never Used 01/06/25 14:58 PHQ-9: PHQ-9 Score PHQ-9: Total score 3 01/06/25 16:11 Thrive Assessment: Date of Thrive Assessment Date Thrive assessed 01/06/25 01/06/25 14:58 Currently or been in a relationship where the following occur: No concerns reported HENMT Head: Yes normal to inspection, Yes normocephalic and Yes atraumatic Ears: external ears normal General nose exam: Normal external nose present and No nasal discharge present Mouth: lip normal Eyes General: appearance normal, both eyes and all related structures Eyelids: Yes eyelids normal Conjunctivae: conjunctivae normal Telehealth Telehealth Telehealth Platform: Telephone Location of provider rendering services: practice address Location of patient: address on file Patient Identification confirmed using: Name, : Yes Telehealth method: video Patient verbally consented to treatment: Yes Patient verbally consented to billing insurance company: Yes Patient informed of any privacy concerns related to visit: Yes Minutes spent on Phone/Video with Pt.: 15 Coding Level of Care Code Tele Est Pt Level 4 (35525) Diagnoses Type 1 diabetes mellitus with hyperglycemia, with long-term current use of insulin E10.65 Mild recurrent major depression F33.0 JOSE CRUZ (generalized anxiety disorder) F41.1 Hypothyroidism E03.9 Time Spent (min) 15 Assessment & Plan Assessment & Plan (1) Type 1 diabetes mellitus with hyperglycemia, with long-term current use of insulin: Comment: Has pump and sensor reports at least 2 spikes of blood sugar to 300s in am in a week, patient will be discussing with endocrinology. Code(s): E10.65 - Type 1 diabetes mellitus with hyperglycemia Category: Medical (2) Mild recurrent major depression: Code(s): F33.0 - Major depressive disorder, recurrent, mild Category: Medical (3) JOSE CRUZ (generalized anxiety disorder): Code(s): F41.1 - Generalized anxiety disorder Category: Medical (4) Hypothyroidism: Code(s): E03.9 - Hypothyroidism, unspecified Category: Medical Plan Continue current medications. Do necessary adjustments for transportation. Follow-up with endocrinology. Follow-up with counselor.
--- OUTSIDE RECORDS SUMMARY | 2025-01-06 17:29 | XMS_ITS | Encounter Summary ---
Author Organization [employer] Address [address] [place] [address] Care Team Providers Care Manager Banking Name Role Phone Unavailable Primary Care Provider Unavailabl e Reason for Visit * Reason Onset Date Comments Appointment 11/20/2022 Patient had appt scheduled for 11/22. It was supposed to be for new partials but approval has not come in as of yet . She wants to have to ones she currently has repaired in the meantime. But she had to cancel because she has an interview on Friday and doesn't want to be without them. Email was sent to [facility] regarding patient. She would also like to speak to management regarding her case. Encounter Details Date Type Department Care Team (Late st Contact Info) Description 11/20/2022 Telephone [facility] AD[facility] [address], [place] [phone] Radha Marcelino, DDS [address], [place] [phone] Appointment (Patient had appt scheduled for 11/22. It was supposed to be for new partials but approval has not come in as of yet . She wants to have to ones she currently has repaired in the meantime. But she had to cancel because she has an interview on Friday and doesn't want to be without them. Email was sent to [facility] regarding patient. She would also like to speak to management regarding her case. ) Social History Tobacco Use Types Packs/Day Years Used Date Smoking Tobacco: Never Assessed Comments Unknown Sex and Gender Information Value Date Recorded Sex Assigned at Female 07/29/2022 10:16 AM EDT Legal Sex Female 10:16 AM EDT Gender Identity Female 07/29/2022 10:16 AM EDT Sexual Orientation Straight 07/29/2022 10 :16 AM EDT documented as of this encounter Miscellaneous Notes * Telephone Encounter - Ruthie Marc - 11/20/2022 11:21 AM EST Patient had appt scheduled for 11/22. It was supposed to be for new partials but approval has not come in as of yet . She wants to have to ones she currently has repaired in the meantime. But she hadto cancel because she has an interview on Friday and doesn't want to be without them. Email was sent to [facility] regarding patient. She would also like to speak to management regarding her case. documented in this encounter Plan of Treatment Not on file documented as of this encounter Visit Diagnoses Not on filedocumented in this encounter
--- OUTSIDE RECORDS SUMMARY | 2025-01-06 17:29 | XMS_ITS ---
Author Organization [facility] Address [address] [place] [address] Care Team Providers Care Nurses Medical Assistants Phlebotomists Name Role Phone ELMIRA LAI, KALLI Primary Care Provider Nicholas Estrada [phone] REASON FOR VISIT FYI cologuard test was negative Encounters Encounter Location Date Provider Diagnosis [facility] [address] [place] [address] 04/29/2024 Nicholas Victoria Plan Of Treatment No Information Progress Notes * GERI MITESHDOB:1975 (49 yo F)Acc No.[id number]:04/29/2024 Patient:?MITESH NEVAREZ :1975???Age:49 Y???Sex:Female Address:[address] [place] [address] [address], [place], [address] * true * Date:? Generated for Lavern mendez/Dianna/eTransmitting on:?01/06/2025 05:28 PM EDT
--- OUTSIDE RECORDS SUMMARY | 2025-01-06 17:29 | XMS_ITS | Patient Health Record ---
Author Organization [facility] Address [address] [place] [address] Care Team Providers Care Group Leader Semiconductor Processing Name Role Phone ELMIRA LAI, KALLI Primary Care Provider Nicholas Estrada Unavailable [phone] Allergies Allergen (clinical drug ingredient) Drug/Non Drug Allergy documented on EMR Reaction Allergy Type Onset Date Status lithium citrate [place] Unknown Drug Allergy A ctive Sulfa Unknown Drug Allergy Active tagaderm tape (uncoded) Unknown Allergy Active Reason For Referral No Information Medications Medication SIG (Take, Route, Fr equency, Duration) Notes Start Date End Date Status Probiotic once a day Active Vitamin D Active Topiramate Active Senna 2 tablets at bedtime as needed Active Docusate Sodium 100 MG 1 capsule as need ed Orally BID/as needed Active Omeprazole 20 MG TAKE 1 CAPSULE BY [facility] EVERY DAY for 90 Active Lantus Active Levothyroxine Sodium Active NovoLOG Active Immunizations Vaccine Route Administration Date Status Comme nts Influenza Unknown 10/16/2022 Refused Social History Tobacco Use: Social History Observation Description Date Details (start date - stop date) Former Smoker NA - NA Tobacco Use/Smoking Question Answer Notes Patient is a former smoker How long has it been since you last smoked? > 10 years Alcohol Screen Question Answer Notes Did you have a drink contain ing alcohol in the past year? Yes How often did you have a dri nk containing alcohol in the past year? Monthly or less (1 point) How many drinks did you have on a typical day when you were drinking in the past year? 1 or 2 drinks (0 point) How often did you have 6 or more drinks on one occasion in the past year? Never (0 point) Points 1 Interpretation Negative Section Notes: Nonsmoker; no sig alcohol Nonsmoker; no sig alcohol Problems Problem Type SNOMED Code ICD Code Onset Dates Problem Status W/U Status Risk Notes Problem 159009259 Colon cancer screening (Z12.11) Active confirmed Problem 043930639 Gastroesophageal reflux disease, esophagitis presence not specified (K21.9) Active confirmed Problem 97244101 Constipation, unspecified constipation type (K59.00) Active confirmed Problem 090613061 Gastroesophageal reflux disease, unspecified whether esophagitis present (K21.9) Active confirmed Encounters Encounter Location Date Provider Diagnosis [facility] [address] [place] [address] 04/29/2024 Nicholas Victoria Plan Of Treatment Future Test Test Name Order Date UPPER GI ENDOSCOPY 10/16/2022 COLONOSCOPY 10/16/2022 Insurance Providers Payer Name Payer Address Payer Phone Subscriber Number Group Number Insured Name Patient Relationship to Insured Coverage Start Date Coverage End Date [facility] [address] [place] [phone] [id number] MITESH NEVAREZ Self - patient is the insured Medical (General) History Medical History History ICD Code IDDM--since age 13 Anxiety Hypothyroidism Constipation---seen by [facility] --descibes a flex sig at [place] > 10 years ago--improved with Miralax GERD Denies MT,CVA,Lung disease,renal disease Surgical History Surgery Date(Month/Year) Shoulder-Dr. Bush--rotator cuff 8
--- OUTSIDE RECORDS SUMMARY | 2025-01-06 17:29 | XMS_ITS | Encounter Summary ---
Author Organization [employer] Address [address] [place] [address] Care Team Providers Care Manager Advanced Name Role Phone Unavailable Primary Care Provider Unavailabl e Encounter Details Date Type Department Care Team (Late st Contact Info) Description 01/09/2023 Abstract [facility] ADULT D[facility]AL [address] [place] [address] Radha Marcelino, DDS [address] [place] [address] Social History Tobacco Use Types Packs/Day Years Used Date Smoking Tobacco: Never Assessed Comments Unknown Sex and Gender Information Value Date Recorded Sex Assigned at Female 07/29/2022 10:16 AM EDT Legal Sex Female 10:16 AM EDT Gender Identity Female 07/29/2022 10:16 AM EDT Sexual Orientation Straight 07/29/2022 10 :16 AM EDT documented as of this encounter Plan of Treatment Not on file documented as of this encounter Visit Diagnoses Not on filedocumented in this encounter
--- OUTSIDE RECORDS SUMMARY | 2025-01-06 17:29 | XMS_ITS | Encounter Summary ---
Author Organization [employer] Address [address] [place] [address] Care Team Providers Care Manager Safe Name Role Phone Unavailable Primary Care Provider Unavailabl e Encounter Details Date Type Department Care Team (Late st Contact Info) Description 01/08/2023 Abstract [facility] ADULT DENTAL [address] [place] [address] Radha Marcelino, DDS [address] [place] [address] Social History Tobacco Use Types Packs/Day Years [...]
--- OUTSIDE RECORDS SUMMARY | 2025-01-06 17:29 | XMS_ITS | Data Portability ---
Author Organization [employer] Address [address] [place] [id number] Care Team Providers Care Mold Making Plastics Sheets Supervisor Name Role Phone [facility] Referring Provider Assessment No assessment recorded. Plan of Treatment Reminders Order Date Submit Date Provider Last Modified By Organization Details Last Modified Time Details Appointments None recorded. Lab unlisted lab - urinalysis w/reflex culture 2021 022 [employer] (Centralized Electronic Ordering - All Locations), Patient Can Go To The Location Of Their Choice, [address] 15:18:14 Referral None recorded. Procedures None recorded. Surgeries None recorded. Imaging None recorded. Medication Orders nitrofurant oin monohydrate /macrocryst als 100 mg capsule 2021 022 [id number], [address] [place], [address], 2 10:43:10 Pyridium 100 mg tablet 2021 022 [id number], [address] [place], [address], 2 10:31:31 Patient TargetsNo targets recorded. Patient [...] day by oral route for 2 days. 2021 active Not Available Not Available Not Avai [...] 131 mm[Hg] 83 mm[Hg] Kenyetta Bae MD [address] [place] [address],[address], [place], [address] [place] [address] 2 10:28:13 Social History None recorded. Functional Status None recorded. Mental Status None recorded. Family History Nothing Reported. Medical History No medical history recorded. Gynecological HistoryNo gynecological history recorded. Obstetrics History GPAL:G 0 P 0 0 0 0 Past Encounters Encounter ID Performer Location Encounter Start Date Encounter Closed Date Diagnosis/Indication Diagnosis SNOMED-CT Code Diagnosis ICD10 Code Diagnosis Note 229 Kenyetta Bae MD [address] [address] 11/25/2021 09:35:38 05/30/2022 15:05:25 Acute urinary tract infection [id number] N39.0 Sx c/w uncompilca gavin UTI w/o [...] Prasad Member ID Guarantor Name 11/25/2021 1 [facility] - DOS PRIOR TO 2022 - DUAL [...] UTI test and it was positive. Per drafter assistant hx:Dispatched to a 46 y.o female with [...] sent to pharmacy for patient, patient to pick pack worker today and start first dose. red flags discussed with the patient and patient advised should any red flags arise to be seen at the emergency room. cleared without incident. Kenyetta Bae MD [address] [facility], [place], [address], [employer] 11/25/2021 11:31:58 OBGyn Episode No OBEpisode recorded.
--- OUTSIDE RECORDS SUMMARY | 2025-01-06 17:29 | XMS_ITS | Encounter Summary ---
Author Organization [employer] Address [address] [place] [address] Care Team Providers Care Plastic Surgery Technician Name Role Phone Unavailable Primary Care Provider Unavailabl e Encounter Details Date Type Department Care Team (Late st Contact Info) Description 01/17/[address] [facility] ADULT DENTAL [address] [place] [address] Radha Marcelino, DDS [address] [place] [address] Social History Tobacco Use Types Packs/Day Years [...]
--- OUTSIDE RECORDS SUMMARY | 2025-01-06 17:29 | XMS_ITS | Encounter Summary ---
Author Organization [employer] Address [address] [facility] [address] [place] [address] Care Team Providers Care Heat Treating Operator Name Role Phone Unavailable Primary Care Provider Unavailabl e Encounter Details Date Type Department Care Team (Latest Contact Info) Description 01/06/2019 Abstract [facility] CONVERSIONS Dental, Provider, DDS Social History Tobacco Use Types Packs/Day Years [...]
--- OUTSIDE RECORDS SUMMARY | 2025-01-06 17:29 | XMS_ITS | Encounter Summary ---
Author Organization [employer] Address [address] [facility] [place] [address] Care Team Providers Care Halal Butcher Name Role Phone Unavailable Primary Care Provider Unavailabl e Encounter Details Date Type Department Care Team (Late st Contact Info) Description 01/07/2023 Abstract [facility] ADULT DENTAL [address] [place] [address] Radha Marcelino, DDS [address] [place] [address] Social History Tobacco Use Types Packs/Day Years [...]
--- OUTSIDE RECORDS SUMMARY | 2025-01-06 17:29 | XMS_ITS | Clinical Summary ---
Author Organization [employer] Address [address] [facility] 7[address] [place] [address] Care Team Providers Care Plant Mechanic Name Role Phone Unavailable Primary Care Provider Unavailabl e Allergies Active Allergy Reactions Criticality Noted Date Comments Acetaminophen 07/07/2018 Lamotrigine 09/17/2010 Other reaction(s): vomiting: diarrhea Latex 05/07/2013 [place] 09/17/2010 Other reaction(s): rash, rash GI upset, red, itchy blotches Oxycodone 07/07/2018 Sulfa Antibiotics 09/17/2010 Other reaction(s): rash Unknown systemic reaction Wound Dressing Adhesive 02/05/2023 Itching, rash Medications insulin [facility]G x [facility] Ultra-Fine Mini Pen Needle 31 gauge x 3/16 Active glucose blood test strip OneTouch Verio test strips TO TEST BLOOD GLUCOSE 7 TIMES PER DAY 30 DAYS Active Continuous Blood Gluc Sensor (FreeStyle Jose [address]) [facility] FreeStyle [place] 2 Sensor kit CHANGE EVERY 14 DAYS Active cephalexin (Keflex) 500 MG capsule cephalexin 500 mg capsule TAKE 1 CAPSULE BY MOUTH EVERY 12 HOURS FOR 7 DAYS Active cholecalcifero l (Vitamin D-3) 25 MCG (1000 UT) capsule Vitamin D3 25 mcg (1,000 unit) capsule TAKE 2 CAPSULES BY MOUTH EVERY DAY FOR 30 DAYS Active clindamycin (Cleocin T) 1 % lotion clindamycin 1 % lotion APPLY TWICE DAILY TO AFFECTED AREAS ON FACE NEEDED. Active Continuous Blood Gluc Sensor (FreeStyle Jose 2 Sensor) [facility] APPLY SENSOR TO SKIN EVERY 14 DAYS 2 Active Docusate Sodium (DSS) 100 MG capsule docusate sodium 100 mg capsule TAKE 100 MG BY MOUTH TWICE A DAY Active OneTouch Verio test strip TEST 7 TIME A DAY 2 Active hydrOXYzine HCl (Atarax) 25 MG tablet Take 25 mg by mouth if needed in the morning and at bedtime. 3 Active hydrOXYzine HCl (Atarax) 25 MG tablet hydroxyzine HCl 25 mg tablet TAKE 1 TABLET BY MOUTH TWICE A DAY NEEDED FOR ANXIETY Active ibuprofen 400 MG tablet ibuprofen 400 mg tablet TAKE 1 TABLET BY MOUTH EVERY 4 TO 6 HOURS NEEDED Active insulin aspart (NovoLOG FLEXPEN) 100 UNIT/ML pen Novolog FlexPen U-100 Insulin aspart 100 unit/mL (3 mL) subcutaneous INJECT 4-12 UNITS 4 TIMES A DAY BEFORE MEALS AND CORRECTION Active Lantus SoloStar 100 UNIT/ML pen INJECT 16 TO 18 UNITS SUBCUTANEOUS ONCE A DAY AT BEDTIME 3 Active insulin glargine (Lantus SoloStar) 100 UNIT/ML pen Lantus Solostar U-100 Insulin 100 unit/mL (3 mL) subcutaneous pen INJECT 16 TO 18 UNITS INTO THE SKIN AT BEDTIME. USE 2 UNITS TO PRIME PEN WITH EACH DOSE 75 Active B-D UF III MINI PEN NEEDLES 31G X [address] [facility] USE TO INJECT 7 TIMES PER DAY FOR 2 Active ketotifen (Zaditor) 0.025 % ophthalmic solution [place] 0.025 % (0.035 %) eye drops INSTILL 1 DROP IN AFFECTED EYE(S) TWICE DAILY AT LEAST 8 HOURS APART Active levothyroxine (Synthroid, Levoxyl) 100 MCG tablet levothyroxine 100 mcg tablet TAKE 1 TABLET BY MOUTH EVERY DAY FOR 90 DAYS Active metroNIDAZOLE (Flagyl) 375 MG capsule metronidazole 375 mg capsule TAKE 1 CAPSULE BY MOUTH ONCE 1 DAY FOR YEAST OVERGROWTH DUE TO ANTIBIOTIC USE Active nitrofurantoin , macrocrystal-m onohydrate, (Macrobid) 100 MG capsule nitrofurantoin monohydrate/macroc rystals 100 mg capsule TAKE 1 CAPSULE EVERY 12 HOURS BY ORAL ROUTE FOR 3 DAYS. Active omeprazole (PriLOSEC) [address] capsule omeprazole 20 mg capsule,delayed release TAKE 1 CAPSULE BY MOUTH EVERY DAY Active phenazopyridin e (Pyridium) 100 MG tablet 3 times a day. A ctive sennosides (Senokot) 8.6 MG tablet senna 8.6 mg tablet TAKE 2 TABLETS BY MOUTH AT BEDTIME NEEDED FOR CONSTIPATION 30 Active topiramate 50 MG tablet topiramate 50 mg tablet TAKE 1 TABLET BY MOUTH TWICE A DAY Active cholecalcifero l (Vitamin D-3) 25 MCG (1000 UT) tablet Take 1,000 Units by mouth in the morning. Active hydrOXYzine HCl (Atarax) 25 MG tablet Take 1 tablet by mouth if needed in the morning and at bedtime. Active levothyroxine (Synthroid, Levoxyl) 100 MCG tablet Take 100 mcg by mouth in the morning. 3 Active omeprazole (PriLOSEC) [address] capsule Take 10 mg by mouth in the morning. Active topiramate 50 MG tablet Take 1 tablet by mouth 2 times daily. Active chlorhexidine (Peridex) 0.12 % solution Use 15ml to rinse mouth twice daily. 473 mL Active Active Problems Problem Noted Date Diagnosed Date Colon cancer screening 05/02/2023 Constipation 05/02/2023 Gastroesophageal reflux disease 05/02/2023 Acquired hypothyroidism 02/05/2023 Overview (05/02/2023): Last Assessment & Plan: Longstanding primary hypothyroidism. She was under replaced on 88 mcg levothyroxine daily and dose was increased to daily average dose of 94 mcg in 11/21. Her dry skin and hair and fatigue remains. Weight is stable. Plan to check TSH today and will communicate through [place] about results. 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 Decreased hypoglycemia awareness. Using CGM. Not interested in pump therapy. 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 Complications include decreased hypoglycemia awareness which has improved since using CGM and the lipohypertrophy on the abdomen. Suboptimal control by jose 3 CGM download. Using between 16 to 18 units of Lantus at bedtime and NovoLog by insulin to carb ratio of 1:6 and by ISF 1-50. Blood sugars trending down after dinner followed by spikes up to the 300s related to overtreating hypoglycemia. No severe hypoglycemia. Suggested to decrease the correction NovoLog dose by using ISF 1-60 at dinner. Keep current insulin to carb ratio for now. If fasting or overnight blood sugar below the 70s, decrease the Lantus by 1 to 2 units. Up-to-date with eye exam, next exam scheduled in 03/21, requested to send report here. Immunizations Name Administration Dates Next Due Tdap 06/03/2019,07/07/2008 Social History Tobacco Use Types Packs/Day Years Used Date Smoking Tobacco: Former Cigarettes Passive Smoke Exposure: Current Smokeless Tobacco: Never Comments Unknown Sex and Gender Information Value Date Recorded Sex Assigned at Female 07/29/2022 10:16 AM EDT Legal Sex Female 10:16 AM EDT Gender Identity Female 07/29/2022 10:16 AM EDT Sexual Orientation Straight 07/29/2022 10 :16 AM EDT Last Filed Vital Signs Vital Sign Reading Time Taken Comments Blood Pressure 120/70 05/07/2023 10:09 AM EDT Pulse 70 05/07/2023 10:09 AM EDT Temperature - - Respiratory Rate - - Oxygen Saturation - - Inhaled Oxygen Concentration - - Weight - - Height - - Body Mass Index - - Plan of Treatment Health Maintenance Due Date Last Done Comments CT Colonography 1977 Colonoscopy 1977 Colorectal Cancer Screening 1977 Dental X-Ray: Bitewings 1977 Dental X-Ray: Full Mouth 1977 Depression Screening 1977 Diabetes: Hemoglobin A1C 1977 FIT DNA/Cologuard 1977 FIT 1977 FOBT 1977 HIV Screening 1977 Lipid Panel 1977 SDOH Screening 1977 Sigmoidoscopy 1977 Diabetes: Foot Exam 1987 Eye Exam 1987 Alcohol/Substance Use Screening 1989 Family Planning (PISQ) 1992 Hepatitis C Screening 1995 Hepatitis B Vaccines (1 of 3 - 19+ 3-dose series) 1996 Pneumococcal Vaccine: Pediatrics (0 to 5 Years) and At-Risk Patients (6 to 49) Years) (1 of 2 - PCV) 1996 Pap Smear 1998 Cervical Cancer Screening 2007 HPV/Cotest 2007 Mammogram 2017 Dental Oral Exam 11/08/2023 05/07/2023 Dental Prophylaxis 11/08/2023 05/07/2023 Diabetes: Urine Protein Screening 05/05/2024 05/05/2023 Tobacco Screening 05/07/2024 05/07/2023 COVID-19 Vaccine (1 - 2023-2 5 season) 2024 Influenza Vaccine (#1) 2024 Zoster Vaccines (1 of 2) 2027 DTaP/Tdap/Td Vaccines (3 - T d or Tdap) 06/03/2029 06/03/2019, 07/07/2008 RSV Patients and Patients Aged 60 years or older (1 - 1-dose 75+ series) 2052 HIB Vaccines Aged Out No longer eligi ble based on patient's age to complete this topic HPV Vaccines Aged Out No longer eligi ble based on patient's age to complete this topic Hepatitis A Vaccines Aged Out No long er eligible based on patient's age to complete this topic IPV Vaccines Aged Out No longer eligi ble based on patient's age to complete this topic Meningococcal Vaccine Aged Out No galileo gigi eligible based on patient's age to complete this topic RSV under 20 months Aged Out No longe r eligible based on patient's age to complete this topic Rotavirus Vaccines Aged Out No longer eligible based on patient's age to complete this topic Procedures Procedure Name Priority Date/Time Associated Diagnosis Comments Full PROPHYLAXIS - ADULT Routine 023 10:00 AM EDT PERIODIC ORAL EVALUATION - ESTABLISHED PATIENT Routine 05/07/2023 8:45 AM EDT from Last 3 Months or Most Recently Relevant to Health Maintenance Insurance [facility]
--- OUTSIDE RECORDS SUMMARY | 2025-01-06 17:29 | XMS_ITS | Encounter Summary ---
Author Organization [employer] Address [address] [facility] [address] [place] [address] Care Team Providers Care Embossing Press Operator Name Role Phone Unavailable Primary Care Provider Unavailabl e Encounter Details Date Type Department Care Team (Latest Contact Info) Description 04/22/2022 Abstract [facility] CONVERSIONS Dental, Provider, DDS Social History Tobacco [...]
--- OUTSIDE RECORDS SUMMARY | 2025-01-06 17:29 | XMS_ITS | Encounter Summary ---
Author Organization [employer] Address [address] [facility] [address]t [place] [address] Care Team Providers Care Agency Development Manager Name Role Phone Unavailable Primary Care Provider Unavailabl e Encounter Details Date Type Department Care Team (Latest Contact Info) Description 03/06/2021 Abstract [facility] CONVERSIONS Dental, Provider, DDS Social History [...]
--- OUTSIDE RECORDS SUMMARY | 2025-01-06 17:29 | XMS_ITS | Encounter Summary ---
Author Organization [employer] Address [address] [place] [address] Care Team Providers Care Superintendent [employer] Name Role Phone Unavailable Primary Care Provider Unavailabl e Reason for Visit * Reason Onset Date Comments Prior Authorization 10/30/2022 Patient call ed in Requesting if PA Has been Received pls Advise AV Encounter Details Date Type Department Care Team ([facility] st Contact Info) Description 10/30/2022 Telephone [facility] ADULT DENTAL [address] [place] [address] Radha Marcelino, DDS [address] [place], [place] [phone] Prior Authorization (Patient called in Requesting if PA Has been Received pls Advise AV) Social History Tobacco Use Types Packs/Day Years Used Date Smoking Tobacco: Never Assessed Comments Unknown Sex and Gender Information Value Date Recorded Sex Assigned at Female 07/29/2022 10:16 AM EDT Legal Sex Female 10:16 AM EDT Gender Identity Female 07/29/2022 10:16 AM EDT Sexual Orientation Straight 07/29/2022 10 :16 AM EDT COVID-19 Exposure Response Date Recorded In the last 10 days, have yo u been in contact with someone who was confirmed or suspected to have Coronavirus/COVID-19? No / Unsure 10/10/2022 2:53 PM EST documented as of this encounter Miscellaneous Notes * Telephone Encounter - Mahi Vidales - 10/30/2022 10:22 AM EST Patient called in Requesting if PA Has been Received pls Advise AV documented in this encounter Plan of Treatment Not on file documented as of this encounter Visit Diagnoses Not on filedocumented in this encounter
== END 2025-01-06 16:09 | disposition home or self-care (01) ==
LOC: HO.HMCH 14:50
PROVIDERS: PCP Internal Medicine; Visit Provider Internal Medicine
DX: E10.65 Type 1 diabetes mellitus with hyperglycemia (principal); F33.0 Major depressive disorder, recurrent, mild; F41.1 Generalized anxiety disorder; E03.9 Hypothyroidism, unspecified

== ENCOUNTER → 2025-01-06 14:50 | Outpatient (BNVA) | payer OTHER, SELFPAY | PROVIDERS: PCP Internal Medicine; Visit Provider Internal Medicine ==

== ENCOUNTER 2025-07-01 10:19 | Outpatient (REF) | payer OTHER, SELFPAY ==
--- OUTSIDE RECORDS SUMMARY | 2025-06-28 15:40 | XMS_ITS | Encounter Summary ---
Author Organization [facility] Address [address] [place] [address] [place] [phone] Phone Care Team Providers Care Columnist Name Role Phone Kelly Rizvi MD Primary Care Provid er Encounter Details Date Type Department Care Team (Latest Contact Info) Description 06/28/2025 3:40 PM EDT Telemedicine - audio only [facility] [address] [place] [address] Suri Max MD [address] [place] [phone] [email or web address] Type 1 diabetes mellitus with hyperglycemia (Primary Dx); Acquired hypothyroidism Social History Tobacco Use Types Packs/Day Years Used Date Smoking Tobacco: Former Cigarettes Q uit: 2010 Passive Smoke Exposure: Past Smokeless Tobacco: Never Alcohol Use Standard Drinks/Week Comments Yes 1 (1 standard drink = 0.6 oz pur e alcohol) rare Education Answer Date Recorded Are you interested in more education? Not on valentine e 01/25/2023 Are you concerned about learning? Not on file 01/25/2023 No 01/25/2023 No 01/25/2023 Digital Access Answer Date Recorded No 02/21/2023 No 02/21/2023 Reliable internet access at home? Not on file 02/21/2023 Device with a working camera? Not on file Comments Unknown Sex and Gender Information Value Date Recorded Sex Assigned at Female 10/05/2024 7:43 AM EST Legal Sex Female 8:48 AM EST Gender Identity Female 10/05/2024 7:43 AM EST Sexual Orientation Not on file documented as of this encounter Progress Notes * Suri Max MD - 06/28/2025 3:40 PM EDT Images from the original note were not included. Subjective: Patient ID: Sunitha Travis is a 50 y.o. female had a phone visit today to discuss her CGM download. HPI She is not thrilled about her diabetes control and does not know how to fix it. She is very worriedabout her A1c test. Lately she has been restricting food intake to help control her blood sugars. She is also worried about dropping blood sugars overnight which has not happened since her Tresiba was decreased to 15 units nightly on 06/24/2025. She recalls a low blood sugar few weeks ago what was scary because she did not even know where she was. She is guessing to the best of her knowledge about her carb intake and finds it challenging. She is constantly checking her CGM and it is making her very anxious. Her diet is superhealthy. Breakfast is usually eggs or nuts, hardly any carbs. Large amount of carbs with dinner Last labs on 10/14/2024: A1c 8.3%, creatinine 0.86, LFTs normal, B12 normal, folate normal, urine microalbumin/creatinine normal CBC normal TSH 0.9-on 100 mcg levothyroxine daily Total cholesterol 156, LDL 78, HDL 71, triglycerides 37 Review of Systems Objective: Physical Exam Assessment/Plan: Problem List Items Addressed This Visit Acquired hypothyroidism Type 1 diabetes mellitus with hyperglycemia - Primary Suboptimal control remains by briana 3+ CGM download. Average glucose 204, GMI 8.2%, time in range 40%, high 31% and very high 27%. 2% lows. Trends remain the same, going down overnight and postprandial spikes. No severe hypoglycemia within the last 4 weeks. Her Tresiba dose was decreased to 15 units nightly 4 days ago and since then she did not have to wake up for low sugars overnight. Lately has limited her food intake because of fear of hyperglycemia. Currently using insulin to carb ratio of 1:7 with all meals. Breakfast is very low in carbs. Most carbs with dinner. Being aware of her blood sugars all the time making her very anxious. -Encouraged to continue to work on entering all carbohydrates consumed to her sensor and covered that with an insulin to carb ratio of 1:7 with breakfast and lunch -Increase NovoLog insulin to carb at dinner by using an insulin to carb ratio of 1:6. -If blood sugars dropping within 2 hours after a meal, she may need to change her insulin to carb ratio to a higher number like 1:7 at dinner or 1:8 with lunch and breakfast -If her Premeal blood sugar is over 180-200 she may delay her meal about 20 minutes after injectingthe NovoLog instead of 15 minutes -Continue Tresiba 15 units nightly. Patient may decrease this further by 1 unit if overnight or fasting hypoglycemia. She may increase dose by 1 unit if fasting sugar over 140 repeatedly and no overnight lows. -Because of her great anxiety about being aware of her blood sugar variations all the time I recommended should decrease checking her sensor readings to before her meals, about 2 hours after her meals and at bedtime. She will certainly check her sensor readings when not feeling well or getting alerts from the sensor - She is planning to have her blood work at the end of this week and will call for result -Follow-up scheduled on 07/20/2025. She will call in the interim if having issues with her blood sugars documented in this encounter Miscellaneous Notes * Assessment & Plan Note - Suri Max MD - 06/28/2025 4:59 PM EDT Associated Problem(s): Type 1 diabetes mellitus with hyperglycemia Suboptimal control remains by briana 3+ CGM download. Average glucose 204, GMI 8.2%, time in range 40%, high 31% and very high 27%. 2% lows. Trends remain the same, going down overnight and postprandial spikes. No severe hypoglycemia within the last 4 weeks. Her Tresiba dose was decreased to 15 units nightly 4 days ago and since then she did not have to wake up for low sugars overnight. Lately has limited her food intake because of fear of hyperglycemia. Currently using insulin to carb ratio of 1:7 with all meals. Breakfast is very low in carbs. Most carbs with dinner. Being aware of her blood sugars all the time making her very anxious. -Encouraged to continue to work on entering all carbohydrates consumed to her sensor and covered that with an insulin to carb ratio of 1:7 with breakfast and lunch -Increase NovoLog insulin to carb at dinner by using an insulin to carb ratio of 1:6. -If blood sugars dropping within 2 hours after a meal, she may need to change her insulin to carb ratio to a higher number like 1:7 at dinner or 1:8 with lunch and breakfast -If her Premeal blood sugar is over 180-200 she may delay her meal about 20 minutes after injectingthe NovoLog instead of 15 minutes -Continue Tresiba 15 units nightly. Patient may decrease this further by 1 unit if overnight or fasting hypoglycemia. She may increase dose by 1 unit if fasting sugar over 140 repeatedly and no overnight lows. -Because of her great anxiety about being aware of her blood sugar variations all the time I recommended should decrease checking her sensor readings to before her meals, about 2 hours after her meals and at bedtime. She will certainly check her sensor readings when not feeling well or getting alerts from the sensor - She is planning to have her blood work at the end of this week and will call for result -Follow-up scheduled on 07/20/2025. She will call in the interim if having issues with her blood sugars documented in this encounter Plan of Treatment Upcoming Encounters Date Type Department Care Team (Late st Contact Info) Description 07/20/2025 3:00 PM EDT Office Visit [facility] [address] [place] [phone] Suri Max MD [address] [place] [phone] documented as of this encounter Visit Diagnoses Diagnosis Type 1 diabetes mellitus with hyperglycemia- Primary Acquired hypothyroidism Unspecified hypothyroidism documented in this encounter Care Teams Columnist Relationship Specialty Start Date End Date Kelly Rizvi MD [address] [place] [phone] PCP - General Internal Medicine 10/19/24 documented as of this encounter Additional Source Comments The information contained in this document represents components of the legal health record. It is not the complete legal health record.[facility]
--- OUTSIDE RECORDS SUMMARY | 2025-07-01 11:12 | XMS_ITS | Clinical Summary ---
Author Organization [employer] Address [address] [place] [address] [address] [place] [address] Care Team Providers Care Director Of [facility] Name Role Phone Unavailable Primary Care Provider Unavailabl e Allergies Active Allergy Reactions Criticality Noted Date Comments Acetaminophen 07/07/2018 Lamotrigine 09/17/2010 Other reaction(s): vomiting: diarrhea Latex 05/07/2013 [place] [employer] 09/17/2010 Other reaction(s): rash, rash GI upset, red, itchy blotches Oxycodone 07/07/2018 Sulfa Antibiotics 09/17/2010 Other reaction(s): rash Unknown systemic reaction Wound Dressing Adhesive 02/05/2023 Itching, rash Medications insulin pen needle 31G x 5 mm [facility] Ultra-Fine Mini Pen Needle 31 gauge x 3/16 Active glucose blood test strip OneTouch Verio test strips TO TEST BLOOD GLUCOSE 7 TIMES PER DAY 30 DAYS Active Continuous Blood Gluc Sensor (FreeStyle Jose 2 Sensor) [facility] FreeStyle Jose 2 Sensor kit CHANGE EVERY [...] Blood Gluc Sensor (FreeStyle Jose 2 Sensor) [facility] APPLY SENSOR TO SKIN EVERY 14 DAYS [...] MINI PEN NEEDLES 31G X 5 MM [facility] USE TO INJECT 7 TIMES PER DAY [...] 100 mcg by mouth in the morning. Active omeprazole (PriLOSEC) [address] capsule [...] check TSH today and will communicate through [place] about results. 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 Immunizations Immunization Administration Dates Next Due Tdap 06/03/2019,07/07/2008 Social [...] Panel 1977 SDOH Screening 1977 Sigmoidoscopy 1977 Disability Screening 1977 Diabetes: Foot Exam 1987 Eye Exam 1987 Alcohol/Substance Use Screening 1989 Family Planning (PISQ) 1992 Hepatitis C Screening 1995 Hepatitis B Vaccines (1 of 3 - 19+ 3-dose series) 1996 Pneumococcal Vaccine: Pediatrics (0 to 5 Years) and At-Risk Patients (6 to 49) Years (1 of 2 - PCV) 1996 Pap Smear 1998 Cervical Cancer Screening 2007 HPV/Cotest 2007 Mammogram 2017 Dental Oral Exam 11/08/2023 05/07/2023 Dental Prophylaxis 11/08/2023 05/07/2023 Diabetes: Urine Protein Screening 05/05/2024 05/05/2023 Tobacco Screening 05/07/2024 05/07/2023 COVID-19 Vaccine (1 - 2023-2 5 season) 2025 Influenza Vaccine (#1) 2025 Zoster Vaccines (1 of 2) 2027 DTaP/Tdap/Td [...] patient's age to complete this topic Meningococcal B Vaccine Aged Out No l onger eligible based on patient's age to complete [...] Most Recently Relevant to Health Maintenance Insurance [facility]
--- OUTSIDE RECORDS SUMMARY | 2025-07-01 11:12 | XMS_ITS | Encounter Summary ---
Author Organization [facility] Address [address] [place] [address] [place] [phone] Phone Care Team Providers Care Engine Assembly Supervisor Name Role Phone Kelly Rizvi MD Primary Care Provid er Reason for Visit * Reason Onset Date Comments Appointment 06/28/2025 Encounter Details Date Type Department Care Team ([facility] st Contact Info) Description 06/28/2025 Telephone [facility] [address] [place] [address] [place] [address] Suri Max MD [address] [place] [phone] [email or web address] Appointment Social History Tobacco Use Types Packs/Day Years [...] as of this encounter Progress Notes * AngelesevangelistCira - 06/28/2025 12:13 PM EDT Pt called requesting a call back regarding why appt for today s appt was booked. Central Support Front Desk Team Member (Please do not reply to this user; this inbox is not monitored.) Thank you. documented in this encounter Plan of Treatment Upcoming Encounters Date Type Department Care Team (Late st Contact Info) Description 07/20/2025 3:00 PM EDT Office Visit [facility] [address] [place] [phone] Suri Max MD [address] [place] [phone] [email or web address] documented as of this encounter Visit Diagnoses Not on filedocumented in this encounter Care Teams Engine Assembly Supervisor Relationship Specialty Start Date End Date Kelly Rizvi MD [address] [place] [address] PCP - General Internal Medicine 10/19/24 documented as of this encounter Additional Source Comments The information contained in this document represents components of the legal health record. It is not the complete legal health record.[facility]
--- OUTSIDE RECORDS SUMMARY | 2025-07-01 11:12 | XMS_ITS | Continuity of Care Document ---
Author Name [facility] Address [address] [place] [address] Organization Unknown Address [address] [place] [address] Medications No known medications Problems No known problems
--- OUTSIDE RECORDS SUMMARY | 2025-07-01 11:13 | XMS_ITS | Encounter Summary ---
Author Organization [employer] Address [address] [facility] 7t [place] [address] Care Team Providers Care Car Sales Associate Name Role Phone Unavailable Primary Care Provider Unavailabl e Encounter Details Date Type Department Care Team (Late st Contact Info) Description 01/09/2023 Abstract [facility] ADULT DENTAL [address] [place] [address] Radha Marcelino, DDS [address] [place] [address] Social History Tobacco Use Types Packs/Day Years [...]
--- OUTSIDE RECORDS SUMMARY | 2025-07-01 11:13 | XMS_ITS | Encounter Summary ---
Author Organization [employer] Address [address] [facility] 7 [place] [address] Care Team Providers Care Skein Dyer Name Role Phone Unavailable Primary Care Provider Unavailabl e Reason for Visit * Reason Onset Date Comments Prior Authorization 10/30/2022 Patient call ed in Requesting if PA Has been Received pls Advise AV Encounter Details Date Type Department Care Team ([facility] st Contact Info) Description 10/30/2022 Telephone [facility] ADULT DENTAL [address] [place] [address] Radha Marcelino, DDS [address] [place] [address] Prior Authorization (Patient called in Requesting if [...]
--- OUTSIDE RECORDS SUMMARY | 2025-07-01 11:13 | XMS_ITS | Patient Health Record ---
Author Organization [facility] Address [address] [place] [address] Care Team Providers Care Chemist Instrumentation Name Role Phone ELMIRA LAI, KALLI Primary Care Provider Nicholas Estrada [phone] Allergies Allergen (clinical drug ingredient) Drug/Non Drug Allergy documented on EMR Reaction Allergy Type Onset Date Status lithium citrate [place] Unknown Drug Allergy A ctive Sulfa Unknown [...] as need ed Orally BID/as needed Active Lantus Active Levothyroxine Sodium Active NovoLOG Active Omeprazole 20 MG TAKE 1 CAPSULE BY [facility] EVERY DAY for 90 Active Immunizations Vaccine Route Administration Date Status [...] Problem Status W/U Status Risk Notes Problem 477368433 Colon cancer screening (Z12.11) Active confirmed Problem [id number] Gastroesophageal reflux disease, esophagitis presence not specified (K21.9) Active confirmed Problem [id number] Constipation, unspecified constipation type (K59.00) Active confirmed Problem [id number] Gastroesophageal reflux disease, unspecified whether esophagitis present (K21.9) Active confirmed Plan Of Treatment Future Test Test Name Order Date UPPER GI ENDOSCOPY 10/16/2022 COLONOSCOPY 10/16/2022 Insurance Providers Payer Name Payer Address Payer Phone Subscriber Number Group Number Insured Name Patient Relationship to Insured Coverage Start Date Coverage End Date [facility] [address] [place] [address] [id number] MITESH NEVAREZ Self - patient is the insured Medical (General) History Medical History History ICD Code IDDM--since age 13 Anxiety Hypothyroidism Constipation---seen by [facility] --descibes a flex sig at [place] > 10 years ago--improved with Miralax GERD Denies GA,CVA,Lung disease,renal disease Surgical History Surgery Date(Month/Year) Shoulder-Dr. Bush--rotator cuff 8
--- OUTSIDE RECORDS SUMMARY | 2025-07-01 11:13 | XMS_ITS | Encounter Summary ---
Author Organization [employer] Address [address] [facility] 7t [place] [address] Care Team Providers Care Technical Program Manager Name Role Phone Unavailable Primary Care Provider Unavailabl e Encounter Details Date Type Department Care Team (Late st Contact Info) Description 01/07/2023 Abstract [facility] ADULT DENTAL [address] [place] [address] Radha Marcelino, DDS [address] [place] [address] Social History Tobacco Use Types Packs/Day Years [...]
--- OUTSIDE RECORDS SUMMARY | 2025-07-01 11:13 | XMS_ITS | Encounter Summary ---
Author Organization [employer] Address [address] [facility] 7t [place] [address] Care Team Providers Care Gear Hobber Set Up Operator Name Role Phone Unavailable Primary Care Provider Unavailabl e Encounter Details Date Type Department Care Team (Late st Contact Info) Description 01/08/2023 Abstract [facility] ADULT DENTAL [address] [place] [address] Radha Marcelino, DDS [address] [place] [address] Social History Tobacco Use Types Packs/Day Years [...]
--- OUTSIDE RECORDS SUMMARY | 2025-07-01 11:13 | XMS_ITS | Encounter Summary ---
Author Organization [employer] Address [address] [place] [address] 7 [place] [address] Care Team Providers Care Shock Absorption Floor Layer Name Role Phone Unavailable Primary Care Provider Unavailabl e Encounter Details Date Type Department Care Team (Latest Contact Info) Description 01/06/2019 Abstract [facility] CONVERSIONS Dental, Provider, DDS Social History Tobacco [...]
--- OUTSIDE RECORDS SUMMARY | 2025-07-01 11:13 | XMS_ITS | Encounter Summary ---
Author Organization [facility] Address [address] [place] [address] Encounters * CPT with Medical [facility] at [facility] on 2025-05-24 { reasonForRequest : Patient is a type 1 diabetic, blood sugar is \ all over the place\ . Wants help with meds for a yeast infection. , patientReports : & quot;, denies :[ less than 22 weeks with heavy vaginal bleeding and fever", greater than 22 weeks with heavy vaginal bleeding , greater than 22 weeks with active abdominal and or back pain , Last Menstrual Period greater than 6weeks ago with sudden onset, lower abdominal pain , greater than 26 weeks with reports of dysuria, denies fever or chills , greater than 26 weeks with reports of sinus congestion, cough and fever , greater than 26 weeks with reports of flu like symptoms and vomiting ], chiefComplaints : Diabetes Related , pmh&q uot;: Diabetes Mellitus Type 1, Hypothyroidism, Post-Traumatic Stress Disorder (PTSD), AnxietyDisorder , allergies : Sulfa (Sulfonamide Antibiotics), [place], Adhesive tape", otherAllergies : Tagaderm , painAssessment : , visitOutcome : , additionalComments : 50 y.o female complains of Diabetes Related\n\nPatient self-reporting symptoms:\nMany yeast infections \nSaw OBGYN in June about yeast infections - gave refills of fluconazole \nBlood sugars have been high (200-300s) - able to self-manage \nWoke up with yeast infection - prescription \nCalled OBGYN - primary doctor kay - covering MD will not refill prescription without visit - patient not able to be seen in office for 2 weeks due to lack of transportation \nWhite vaginal discharge, itchiness, painful \nVoiding adequately with no concerns\nDenies fever/sick symptoms \nRequesting [facility] visit\n\nI provided information on the mobile health provider response time and advised the patient and/or caregiver to monitor reported signs and symptoms. I discussed the warning signs of when to seek emergency care."} Pt chief complaint of a yeast infection and needing her mediation re-prescribed. Pt stets that theyspoke with their pcp and that in order for a script to be written she would need to be seen in office. Pt however states that she has currently no method of transportation to get to her loco office for an in person visit. Pt state she is a type 1 diabetic and has been dealing with this since she was 13 years old and she cannot wait anymore time to be seen by her pcp. Pt expresses thick vaginal discharge as well as generalized pain. Pt today would appreciate a general assessment as well as treatment. Pt denies any cp,,sob, NVD, dizziness, or changes in vision. Nonneural focal exam, afebrile, vitals are all WNL. Pt is able to ambulate at her baseline without the use of a walker and or person for assistance. Lungs present as clear bilaterally on auscultation. Benign abdominal assessment. No new and or worsening lower extremity edema noted. Pt is fully caox4 with a GCS of 15. C Yady De Los Santos consulted. [facility] provider has [facility] with pt in regards to requested script. After appropriate questioning [facility] provides prescription to pt via her local pharmacy. Pt told to contact her local pcp for follow upas needed. Pt also educated on red flag S&S and told to contact emergency services if any present. IV_(FLUIDS_AND/OR_MEDICATION), MEDICATION_IM, POC_BLOODWORK, GLUCOSE [facility] 2025-[facility]-24
--- OUTSIDE RECORDS SUMMARY | 2025-07-01 11:13 | XMS_ITS | Encounter Summary ---
Author Organization [employer] Address [address] [facility] 7t [place] [address] Care Team Providers Care Intensive Care Specialist Name Role Phone Unavailable Primary Care Provider Unavailabl e Encounter Details Date Type Department Care Team (Late st Contact Info) Description 01/17/2023 Abstract [facility] ADULT DENTAL [address] [place] [address] Radha Marcelino, DDS [address] [place] [address] Social History Tobacco Use Types Packs/Day Years [...]
--- OUTSIDE RECORDS SUMMARY | 2025-07-01 11:13 | XMS_ITS | Clinical Summary ---
Author Organization [facility] Address [address] [place] [phone] Phone Care Team Providers Care Rn Clinical Coordinator Name Role Phone Kelly Rizvi MD Primary Care Provid er Allergies Active Allergy Reactions Criticality Noted Date Comments Fluvoxamine 10/21/2024 Paranoia [place] Analogues 02/05/2023 GI upset, red, itchy blotches Sulfa (Sulfonamide Antibiotics) 02/05/2023 Unknown systemic reaction Adhesive Tape-Silicones 02/05/2023 Itching, rash Medications docusate sodium (COLACE) 50 MG capsule Take 50 mg by mouth 2 (two) times a day as needed for mild constipation. Active topiramate (TOPAMAX) 50 MG tablet Take 1 tablet by mouth 2 (two) times a day. Active glucagon 3 mg/actuation [place] 1 spray by Nasal route as needed. 1 each 023 Active senna (SENOKOT) 8.6 mg tablet Take 1 tablet by mouth once as needed for constipation. Active levothyroxine (SYNTHROID, LEVOTHROID) 100 MCG tabletIndication s:Acquired hypothyroidism TAKE 1 TABLET BY MOUTH EVERY DAY IN THE MORNING 90 tablet 3 025 Active acetone, urine, test (KETONE URINE TEST) Strp Check urine for ketones when blood sugar > 240 two times in a row 50 strip 11 025 Active Additional Information Patient not taking.Reported on 06/22/2025 omeprazole (PRILOSEC) 20 MG capsule Take 1 capsule by mouth as needed. 025 Active hydrOXYzine (ATARAX) 25 MG tablet Take 25 mg by mouth as needed. Active norethindrone (MICRONOR) 0.35 mg tablet Take 1 tablet by mouth daily. Active insulin degludec U-100 (TRESIBA FLEXTOUCH U-100) injection pen Inject 18 Units under the skin nightly at bedtime. 15 mL Active BD ULTRA-FINE MINI PEN NEEDLE 31 gauge x 3/16 NdleIndications: Type 1 diabetes mellitus with other specified complication Inject 1 each under the skin 6 (six) times a day. 600 each Active VITAMIN D3 25 mcg (1,000 unit) capsuleIndicatio ns:Vitamin D deficiency TAKE 2 CAPSULES BY MOUTH EVERY DAY 180 capsule Active INPEN, NOVOLOG OR FIASP, RUTH InPnIndications: Type 1 diabetes mellitus with other specified complication Inject 1 each under the skin 5 (five) times a day. Use with novolog cartridge and inject subcutaneously 0.5-15 Units up to 5x a day before meals/snacks 1 each Active insulin aspart U-100 (NOVOLOG PENFILL U-100 INSULIN) 100 unit/mL CrtgIndications: Type 1 diabetes mellitus with other specified complication MUST BE USED WITH DELIVERY DEVICE. INJECT 1-15 UNITS UNDER THE SKIN BEFORE MEALS AND SNACKS 5X A DAY 30 mL Active Medication-Free Text Magnesium 500 mg- 1 tablet daily Active ascorbic acid, vitamin C, (VITAMIN C) 250 MG tablet Take 250 mg by mouth daily. Takes 3x weekly. Active blood-glucose sensor (FREESTYLE JOSE 3 PLUS SENSOR) DeviIndications: Type 1 diabetes mellitus with other specified complication 1 each by Percutaneous route every 15 (fifteen) days. 6 each Active NOVOLOG FLEXPEN U-100 INSULIN 100 unit/mL (3 mL) flexpen INJECT SUBCUTANEOUSLY 2-15 UNITS PER SLIDING SCALE 4 TIMES A DAY BEFORE MEALS. Use the Novolog Flexpen if her Inpen malfunctions 30 mL 025 2024 Discontinued FREESTYLE JOSE 2 PLUS SENSOR DeviIndications: Type 1 diabetes mellitus with hyperglycemia 1 each by Miscellaneous route every 15 (fifteen) days. 6 each 025 2024 Discontinued(O ther) OMNIPOD 5, G6/JOSE 2 PLUS, CrtgIndications: Type 1 diabetes mellitus with hyperglycemia Inject 1 each under the skin every 3 (three) days. 30 each 3 025 2024 Discontinued blood-glucose sensor (FREESTYLE JOSE 3 PLUS SENSOR) DeviIndications: Type 1 diabetes mellitus with other specified complication USE 1 SENSOR DIRECTED. CHANGE EVERY 15 DAYS 6 each 3 025 2024 Discontinued(O ther) Active Problems Problem Noted Date Diagnosed Date Type 1 diabetes mellitus with hyperglycemia 07/30 Assessment & Plan (06/28/2025 4:59 PM EDT): Suboptimal control remains by jose 3+ CGM download. Average glucose 204, GMI [...] delay her meal about 20 minutes after injecting the NovoLog instead of 15 minutes -Continue Tresiba [...] if having issues with her blood sugars Assessment & Plan (06/23/2025 3:39 PM EDT): Her glucose control is suboptimal based upon the patient's freestyle jose 3+ sensor download. She is not having severe hypoglycemia, but is having some frequent episodes of hypoglycemia, likely in relation to correcting highs. She will correct and is fine. She is concerned with the lows because she recently had a low and she was with her friend and they thought she was going to pass out from how out of it she was. This past weekend she had to lower her tresiba to 16 units from the previously discussed 18 units because of having some drops overnight. When looking at her download it is better that she take 16 units of tresiba. Discussed if her glucose levels prior to going to bed are above 200 she will take 17 units. She is going to continue to use the 1:6 carb ratio. She has been consistent in how she is eating. When at home she is eating no more than 30 carbs at a meal but when going out she may eat up to 50 carbs. She states over the weekend she had been injecting her insulin into her abdomen rather than her arms or thighs. Discussed it looks like her abdomen is definitely absorbing the insulin better. To continue to inject here but make sure to continue to move it around to help prevent further scar tissue development. Will check her download on 06/24 to see how her glucose levels are doing with the adjustments. If things look good she will continue with these settings until her visit with Dr Max on 06/28, if adjustments are needed based upon her CGM download will call in the afternoon with the adjustments. Continue to work on eating healthy and being active. To call or message with any issues managing her glucose levels. Will set aside 2 freestyle jose 3+ sensors for her as the last 2 she had fell off. She will try to come pick them up or have a friend pick it up Assessment & Plan (05/23/2025 5:40 PM EDT): Improved but suboptimally controlled by recent Dexcom download. Patient continues to have frequent juices to prevent hypoglycemia when blood sugars are in the 70s to 90s after meals and trend arrow is going down. 1 episode of prolonged hypoglycemia overnight without symptoms or sensor alarms. Last labs in 09/2024, A1c 8.3%. Recent eye exam did not show any retinopathy. Patient remains frustrated about her labile blood sugars and would like to proceed with OmniPod training. - We will start using insulin to carb ratio 15, ISF 64 with current target of 140. When starts the pump the target will be lowered to 110 -Will continue Tresiba 17 to 18 units at bedtime -Will mail new lab order - Will contact [employer] rep to set up training - Follow-up with me on 07/20/2025 Assessment & Plan (02/24/2025 10:41 AM EDT): Control is suboptimal based upon the patient's freestyle jose 3 plus sensor download. No frequent or severe hypoglycemia. She has been experiencing more issues with brusing and bleeding when giving her insulin injections. Some of this is likely due to the years of having to give injections and scar tissue build up. Will increase her pen needle size to 8 mm to see if this helps with better insulin absorption. Also discussed the use of the omnipod 5 insulin pump with the use of the freestyle jose 2 plus sensor. The communication between the pump and sensor would greatly improve her overall glucose control. She is agreeable to trying it. Will send a prescription to her pharmacy and then to the insurance company for approval. Discussed using the pump with Dr Max and she also liked the idea of using the pump with the automated mode to help with improving her control. Continue to work on eating healthy and being active. To call or message with any issues managing her glucose levels. Assessment & Plan (11/10/2024 2:46 PM EST): Poor control remains despite significantlyt increasing the NovoLog dose to cover meals. Currently using insulin to carb ratio 1:3, ISF 1:40 with target glucose 110 before meals. Remains on Tresiba 18 units at bedtime. Her postprandial control significantly worsened since she has been using the Inpen device. I am suspicious that this device does not deliver the intended units of insulin. Her current InPen is low in battery. -Start using the new InPen tomorrow after transferred the settings from the old InPen -If postprandial blood sugars are not better in a week or 2, would switch the InPen to NovoLog FlexPen using current insulin to carb ratio and ISF -Patient was also suspicious about Tresiba being less effective than Lantus and she was thinking of switching back to Lantus on the longer pending on her glucose control after the above changes. Discussed that the current postprandial spikes are unlikely related to insufficiency of her Tresiba. Discussed that the Tresiba is a longer lasting insulin compared to the Lantus. -Update us on blood sugars in few weeks -Follow-up with Lesley in 3 months and with me in May Assessment & Plan (10/21/2024 9:18 AM EST): Poor control by jose download and last A1c of 8.3%. No frequent or severe hypoglycemia. Fear of overnight hypoglycemia. Using Tresiba 16 to 17 units at bedtime and NovoLog by InPen with an insulin to carb ratio 1:5, ISF 1:60 with target of 110. Blood sugars are rising after minimal amount of carbohydrate intake -Increase Premeal NovoLog by using insulin to carb ratio of 1:4 and change ISF to 1:50. -Increase Tresiba to 18 units at bedtime. -Review jose download early next week and adjust treatment as needed. -Discussed importance of increased water intake when blood sugars are over the 200s Assessment & Plan (08/12/2023 3:55 PM EST): Diabetes control has worsened within the last 4 to 6 weeks for unknown reason to patient. She did admit that she was started on control pill about 4 weeks ago but higher blood sugars started before this change. Denies any signs of infection. On jose CGM download she has spikes after breakfast and evening meal and had few mild hypoglycemia when overcorrected for the high blood sugars. She used an insulin to carb ratio of 1:5 which she felt was too aggressive and she has been using an insulin to carb ratio of 1:6 lately. In regards to correction factor she used 1-50 and 1-70 and lately just adding an extra 3 to 4 units which seem to be too aggressive leading to hypoglycemia. Lately she has been limiting her carb intake to help control her blood sugars. She does not want to lose weight. Suggested to try to follow a carbohydrate controlled meal plan with 30 to 40 g of carbs per meal and 10 to 15 g per snack. Use an insulin to carb ratio of 1:5. If 2 to 3 hours after meals blood sugars remain over 180-200, patient to change the insulin to carb ratio to 1:4. Go back to correction factor of 1-50 for now. Make sure that she is well-hydrated especially when blood sugars are reaching over 200. Ketone testing if blood sugars over 240 repeatedly. She was interested in using an In Pen which allows us to give smaller amount of NovoLog by 0.5 unit increments. Rx sent. Patient to call if further problems. Has follow-up scheduled on 09/03/2023. Labs prior, order mailed to patient. Vitamin D deficiency, unspecified 05/16/2023 Assessment & Plan (09/23/2023 5:35 PM EST): Recent vitamin D level is high normal as of 08/25/2023 while taking 2000 IU vitamin D3. Plan to keep the 2000 IU vitamin D3 daily through the winter and may decrease dose to 1000 units in the spring. Discussed importance of adequate calcium, vitamin D, fall prevention and regular weightbearing exercises. Assessment & Plan (05/16/2023 3:11 PM EDT): Recent vitamin D level is not available. Remains on 1000 IU vitamin D3, refill sent. Discussed importance of adequate calcium, vitamin D, fall prevention and regular weightbearing exercises. Type 1 diabetes mellitus with other specified co mplication 02/05/2023 Overview (09/23/2023): Dx at age 13. Decreased hypoglycemia awareness. Using CGM. Not interested in pump therapy. 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 Alarm fatigue from Jose 3 -fall 2022 Assessment & Plan (05/06/2024 11:31 PM EDT): Suboptimal control by jose download with average glucose 187 and time in range 53% of the time. Some days significant postprandial spikes despite using the NovoLog before the meal. Some mild, self treated hypoglycemia fasting and occasionally during the day but no severe hypoglycemia. She is using Tresiba 16-17 units at bedtime and NovoLog by insulin to carb ratio 125 and ISF 1-50 for blood sugar over 150. We discussed that the variable absorption of insulin and her control pill may contribute to the larger variation in her blood sugars lately. Will try to increase her meal time NovoLog by using an insulin to carb ratio of 1:4 0.5. She will reach out to reset her InPen settings. Reviewed symptoms, prevention and treatment of hypoglycemia. Continue to use jose 3 CGM for possible. Repeat labs in 6 months. Assessment & Plan (09/23/2023 5:32 PM EST): Erratic control by jose CGM download. Increased anxiety partly from alarm fatigue. PLAN to prevent low blood sugar. Try a correction factor of 1-60 from current 1- 50. Avoid overtreating low blood sugars. Keep the Lantus between 16 to 17 units, if blood sugar at bedtime over the 250s rather try the 17 units of Lantus and no NovoLog for correction. Have more water when the sugars are high at night. Keep to low alert on CGM at 70 or 80 and turn off the high alert for now to decrease alarm fatigue. Assessment & Plan (05/16/2023 3:05 PM EDT): Suboptimal control by jose CGM download. A1c is a 7% in 04/2023, lower than expected by CGM readings. She is using an insulin to carb ratio of 1:6, correction factor of 1:60 blood sugar over 150. She is having mild hypoglycemia usually after correcting for highs followed by hyperglycemia suggesting overcorrection for lows. We discussed symptoms, prevention, treatment of hypoglycemia. Suggested to decrease the correction NovoLog by using a correction factor of 1:70 to help prevent hypoglycemias. May increase Lantus to 18 units at bedtime and keep this dose for several days before adjusting depending on overnight blood sugar trend/fasting glucose. If 2 to 3 hours after meal blood sugars remain over the 180 range, patient to change the insulin to carb ratio to 1-5 from current 1-6. She may try carb controlled meal plan, aiming for 40 to 50 g of total carbs per meal to see if it would help to prevent the roller coaster with her blood sugars. She is scheduled for an eye exam in 08/2023. Her urine microalbumin/creatinine ratio is normal as of 04/2023. No symptoms of peripheral neuropathy. No history of cardiovascular disease. Encouraged to increase physical activity as tolerated. Call with problems with blood sugars as needed. Labs in 3 months. Assessment & Plan (02/05/2023 5:13 PM EDT): 47-year-old woman with type 1 diabetes treated since age 13. Complications include decreased hypoglycemia awareness which has improved since using CGM and the lipohypertrophy on the abdomen. Suboptimal control by Truist 3 CGM download. Using between 16 to [...] in 03/21, requested to send report here. Acquired hypothyroidism 02/05/2023 Assessment & Plan (10/21/2024 9:18 AM EST): Biochemically euthyroid with TSH 0.9 in 09/2024 while taking 100 mcg levothyroxine daily. Denies typical symptoms of under or over replacement. -Continue current treatment -Repeat TSH in 6 months or earlier if clinically indicated Assessment & Plan (05/06/2024 11:32 PM EDT): Clinically and biochemically euthyroid on 100 mcg levothyroxine daily. Last TSH 1.1 in 02/2024. Will keep current treatment. Reviewed symptoms of under and over replacement, patient to call if concern. Patient aware that she may need dose adjustment if significant weight change or stopping her control pill. Recheck TSH in 6 months. Assessment & Plan (09/23/2023 5:34 PM EST): We increased her levothyroxine dose to 100 mcg daily from daily average dose of 94 mcg in 01/2023 because of slightly elevated TSH and mild symptoms of under replacement. Last TSH was slightly low 0.27 on 05/05/2023 on the 100 mcg daily dose. She did not hold high-dose biotin before the latest blood test. During visit on 05/16/2023 we decided to keep the levothyroxine at 100 mcg daily. She gained about 18 pounds since 04/2023. Her last TSH was low normal at 0.69 on 08/25/2023. Patient prefers to stay on the 100 mcg levothyroxine daily, she feels better on this dose. Reviewed symptoms of under and over replacement, patient to call if concerned. Repeat TSH in 3 months considering her increased anxiety. Assessment & Plan (08/12/2023 3:50 PM EST): We increased her levothyroxine dose to 100 mcg daily from daily average dose of 94 mcg in 01/2023 because of slightly elevated TSH and mild symptoms of under replacement. Last TSH was slightly low 0.27 on 05/05/2023 on the 100 mcg daily dose. She did not hold high-dose biotin before the latest blood test. During the last in person visit on 05/16/2023 we decided to keep the levothyroxine at 100 mcg daily and repeat the blood work with next A1c in 3 months. Patient would hold the high-dose biotin for 1 week before the blood test. Assessment & Plan (05/16/2023 3:09 PM EDT): We increased her levothyroxine dose to 100 mcg daily from daily average dose of 94 mcg in 01/2023 because of slightly elevated TSH and having symptoms with it. Last TSH was slightly low 0.27 on 05/05/2023 on the 100 mcg daily dose. She did not hold high-dose biotin before the latest blood test. She seems clinically euthyroid but lost 7 pounds unintentionally what she contributes to may be more physical activity and the higher blood sugars. We discussed that high-dose biotin may interfere with the accuracy of the TSH assay. We decided to keep the levothyroxine at 100 mcg daily for now. Repeat TSH with next A1c in 3 months or earlier if she has symptoms to suggest under or over replacement. She will hold the biotin for 1 week before the next blood work. Assessment & Plan (02/05/2023 5:14 PM EDT): Longstanding primary hypothyroidism. She was under replaced on 88 mcg levothyroxine daily and dose was increased to daily average dose of 94 mcg in 11/21. Her dry skin and hair and fatigue remains. Weight is stable. Plan to check TSH today and will communicate through [place] about results. 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 She noticed that she has less effect of the NovoLog when injects to the arms and thighs. No noticeable lipodystrophy on the sides. She will continue to rotate injection sites. Assessment & Plan (02/05/2023 5:13 PM EDT): Discussed the importance of site rotation's Encounters Date Type Department Care Team Description 06/28/2025 3:40 PM EDT Telemedicine - audio only [facility] [address] [place] [address] [place] [address] Suri Max MD Type 1 diabetes mellitus with hyperglycemia (Primary Dx); Acquired hypothyroidism 06/28/2025 Telephone [facility] [address] [place] [id number] Suri Max MD Appointment 06/22/2025 2:30 PM EDT Telemedicine - audio only [facility] [address] [place] [id number] Tricia Rodriguez PA-C Type 1 diabetes mellitus with hyperglycemia (Primary Dx) 06/22/2025 Telephone [facility] [place] [address] [place] [address] Tricia Rodriguez PA-C Call Dropped 06/15/2025 Telephone [facility], Allergy and Critical Care Medicine [address] [facility] [place] [address] Iman Hernandez returning call 05/23/2025 4:30 PM EDT Telemedicine - audio only [facility] [address] [place] [address] Suri Max MD Type 1 diabetes mellitus with hyperglycemia (Primary Dx) 04/07/2025 Refill [facility] [address] [place] [address] Suri Max MD Medication Refill 04/05/2025 Refill [facility] [address] [place] [address] Suri Max MD Med Change Request from Last 3 Months Social History Tobacco Use Types Packs/Day Years Used Date Smoking Tobacco: Former Cigarettes Q uit: 2009 Passive Smoke Exposure: Past Smokeless Tobacco: Never Tobacco Cessation:Counseling Given: No Alcohol Use Standard Drinks/Week Comments Yes 1 [...] AM EST Sexual Orientation Not on file Last Filed Vital Signs Vital Sign Reading Time Taken Comments Blood Pressure 102/64 04/14/2024 3:38 PM EDT Pulse 86 04/14/2024 3:38 PM EDT Temperature 36.3 C (97.3 F) 09/03/2023 2:52 PM EST Respiratory Rate - - Oxygen Saturation 97% 04/14/2024 3:38 PM EDT Inhaled Oxygen Concentration - - Weight 57.9 kg (127 lb 9.6 oz) 04/14/2024 3:38 P M EDT Height 165.1 cm (5' 5 ) 04/14/2024 3:38 PM EDT Body Mass Index 21.23 04/14/2024 3:38 PM EDT Plan of Treatment Upcoming Encounters Date Type Department Care Team (Late st Contact Info) Description 07/20/2025 3:00 PM EDT Office Visit [facility] [address] [place] [id number] Suri Max MD [address] [place] [phone] [email or web address] Due Date Last Done Comments HEMOGLOBIN A1C 1977 DEPRESSION SCREENING 1989 HEPATITIS C SCREENING 1995 HIV ONE-TIME SCREENING (18-65 YEARS) 1995 LIPID PANEL 1995 PNEUMOCOCCAL VACCINES (0-49 years) (1 of 2 - PCV) 1996 PAP SMEAR 1998 MAMMOGRAM 2017 COLOGUARD 2022 COLONOSCOPY 2022 COLORECTAL CANCER SCREENING 2022 FIT TEST 2022 FOBT 2022 SIGMOIDOSCOPY 2022 VIRTUAL COLONOSCOPY 2022 DIABETIC EYE EXAM 02/05/2023 URINE MICROALBUMIN/CREATININE RATIO 02/05/2023 BLOOD PRESSURE 10/15/2024 04/14/2024 INFLUENZA VACCINE (#1) 2025 COVID-19 VACCINE ( season) 2025 TSH LEVEL 10/14/2025 10/14/2024, 02/28, 08/25/2023, Additional history exists SMOKING Hx and SMOKELESS TOBACCO SCREENING 06/28/2026 06/28/2025 Adult Td,Tdap Booster 06/03/2029 06/03/2019, 008 HEPATITIS A VACCINES Aged Out No long er eligible based on patient's age to complete this topic HIB VACCINES Aged Out No longer eligi ble based on patient's age to complete this topic MENINGOCOCCAL VACCINES (ACWY) Aged Out No longer eligible based on patient's age to complete this topic MENINGOCOCCAL VACCINES (B) Aged Out N o longer eligible based on patient's age to complete this topic Medical Devices Not on file Procedures Procedure Name Priority Date/Time Associated Diagnosis Comments TSH WITH REFLEX Routine 10/14/2024 12:40 PM EST Acquired hypothyroidism from Last 3 Months or Most Recently Relevant to Health Maintenance Results * TSH with reflex (10/14/2024 12:40 PM EST) Blood us Suri Max MD LAB BLOOD ORDERABLES Final Res ult [address] [phone] from Last 3 Months or Most Recently Relevant to Health Maintenance Insurance CARE MEDICARE REPLACEMENT [place] [facility] CARE MEDICARE REPLACEMENT MEDICARE REPLACEMENT MEDICARE REPLACEMENT CARE MEDICARE REPLACEMENT CARE MEDICARE REPLACEMENT MEDICARE REPLACEMENT Care Teams Rn Clinical Coordinator Relationship Specialty Start Date End Date Kelly Rizvi MD [address] [place] [address] PCP - General Internal Medicine 10/19/24 Additional Source Comments The information contained in this document represents components of the legal health record. It is not the complete legal health record.[facility]
--- OUTSIDE RECORDS SUMMARY | 2025-07-01 11:13 | XMS_ITS | Encounter Summary ---
Author Organization [employer] Address [address] [place] [address] [address] [place] [address] Care Team Providers Care Drum Tester Name Role Phone Unavailable Primary Care Provider Unavailabl e Encounter Details Date Type Department Care Team (Latest Contact Info) Description 04/22/2022 Abstract [facility] CONVERSIONS Dental, Provider, DDS Social History Tobacco [...]
--- OUTSIDE RECORDS SUMMARY | 2025-07-01 11:13 | XMS_ITS | Encounter Summary ---
Author Organization [employer] Address [address] [facility] 7t [place] [address] Care Team Providers Care Hat Finisher Name Role Phone Unavailable Primary Care Provider [...] be without them. Email was sent to [facility] regarding patient. She would also like to speak to management regarding her case. Encounter Details Date Type Department Care Team (Late st Contact Info) Description 11/20/2022 Telephone [facility] ADULT DENTAL [address] [place], [place] [phone] Radha Marcelino DDS [address] [place], [place] [phone] Appointment (Patient had appt scheduled for 11/22. It was supposed to be for new partials but approval has not come in as of yet . She wants to have to ones she currently has repaired in the meantime. But she had to cancel because she has an interview on Friday and doesn't want to be without them. Email was sent to [facility] regarding patient. She would also like to [...] be without them. Email was sent to [facility] regarding patient. She would also like to speak to management regarding her case. documented in this encounter Plan of Treatment Not on file documented as of this encounter Visit Diagnoses Not on filedocumented in this encounter
--- OUTSIDE RECORDS SUMMARY | 2025-07-01 11:13 | XMS_ITS | Encounter Summary ---
Author Organization [employer] Address [address] [place] [address] 7 [place] [address] Care Team Providers Care Hammer Fitter Name Role Phone Unavailable Primary Care Provider Unavailabl e Encounter Details Date Type Department Care Team (Latest Contact Info) Description 03/06/2021 Abstract [facility] CONVERSIONS Dental, Provider, DDS Social History [...]
[2025-07-01 12:07] LABS: Alanine Aminotransferase 37 U/L (0-31); Albumin Level 4.5 g/dL (3.5-5.0); Alkaline Phosphatase 77 U/L (39-117); Anion Gap 12 (12-20); Aspartate Amino Transferase 32 U/L (5-31); Blood Urea Nitrogen 15 mg/dL (9-16); Calcium 9.0 mg/dL (8.4-10.2); Carbon Dioxide 24 mmol/L (22-29); Chloride 105 mmol/L (96-108); Estimated Glomerular Filt Rate > 60; Potassium 4.5 mmol/L (3.3-5.1); Sodium 136 mmol/L (135-145); Total Protein 7.3 g/dL (6.5-8.0)
== END 2025-07-01 10:20 | disposition home or self-care (01) ==
LOC: HO.LAB 10:19
PROVIDERS: PCP Internal Medicine; Visit Provider Internal Medicine
DX: E10.65 Type 1 diabetes mellitus with hyperglycemia (principal)
CPT/HCPCS: 36415; 80053; 83036; 84443

== ENCOUNTER 2025-07-20 11:59 | Outpatient (REF) | payer OTHER, SELFPAY ==
--- OUTSIDE RECORDS SUMMARY | 2025-07-20 15:00 | XMS_ITS | Encounter Summary ---
Author Organization [facility] Address [address] [place] [address] [place] [phone] Phone Care Team Providers Care Operations Accountant Name Role Phone Kelly Rizvi MD Primary Care Provid er Reason for Visit * Reason Comments Follow-up Encounter Details Date Type Department Care Team (Latest Contact Info) Description 07/20/2025 3:00 PM EDT Office Visit [facility] [address] [place] [address] Suri Max MD [address] [place] [address] [email or web address] Type 1 diabetes mellitus with hyperglycemia (Primary [...] on file documented as of this encounter Last Filed Vital Signs Vital Sign Reading Time Taken Comments Blood Pressure 120/62 07/20/2025 2:54 PM EDT Pulse 79 07/20/2025 2:54 PM EDT Temperature - - Respiratory Rate - - Oxygen Saturation 99% 07/20/2025 2:54 PM EDT Inhaled Oxygen Concentration - - Weight 55.8 kg (123 lb) 07/20/2025 2:54 PM EDT Height 165.1 cm (5' 5 ) 07/20/2025 2:54 PM EDT Body Mass Index 20.47 07/20/2025 2:54 PM EDT documented in this encounter Patient Instructions * Patient Instructions* Suri Max MD - 07/20/2025 3:00 PM EDT Your TSH level was normal, close to the lower end of normal. For now please continue to 100 mcg levothyroxine daily. We will recheck your TSH with your next blood work at the end of September. In regards to your diabetes the challenges still there to match your NovoLog with your carbohydrateintake. Please continue to work on improving the accuracy of your carbohydrate counting. Try to go back to having 3 regular meals with about 25 to 30 g of carbs per meal. Keep your current insulin tocarb ratio of 1:6 but you may change this to a higher number if you notice that your blood sugars are going down within 2 hours after meal. Keep your current Tresiba dose 16 to 17 units nightly. documented in this encounter Plan of Treatment Upcoming Encounters Date Type Department Care Team (Late st Contact Info) Description 11/08/2025 10:40 AM EST Office Visit [facility] [address] [place] [address] [place] [address] Suri Max MD [address] [place] [address] Scheduled Orders Name Type Priority Associated Diagnoses Orde r Schedule Hemoglobin A1c Lab Routine Type 1 diabetes mellitus with hyperglycemia Expected: 11/03/2025 (Approximate), Expires: 07/20/2026 Comprehensive metabolic panel Lab Routine Type 1 diabetes mellitus with hyperglycemia Expected: 11/03/2025 (Approximate), Expires: 07/20/2026 Microalbumin/creatinine ratio, random urine Lab Routine Type 1 diabetes mellitus with hyperglycemia Expected: 11/03/2025 (Approximate), Expires: 07/20/2026 Lipid panel Lab Routine Type 1 diabetes mellitus with hyperglycemia Expected: 11/03/2025 (Approximate), Expires: 07/20/2026 TSH with reflex Lab Routine Acquired hypothyroidism Expected: 11/03/2025 (Approximate), Expires: 07/20/2026 documented as of this encounter Visit Diagnoses Diagnosis Type 1 diabetes mellitus with hyperglycemia- Primary Acquired hypothyroidism Unspecified hypothyroidism documented in this encounter Care Teams Operations Accountant Relationship Specialty Start Date End Date Kelly Rizvi MD [address] [place] [address] PCP - General Internal Medicine 10/19/24 documented as of this encounter Additional Source Comments The information contained in this document represents components of the legal health record. It is not the complete legal health record.[facility]
--- OUTSIDE RECORDS SUMMARY | 2025-07-20 16:54 | XMS_ITS | Encounter Summary ---
Author Organization [employer] Address [address] [facility] 7 [place] [address] Care Team Providers Care Substance Addiction Coordinator Name Role Phone Unavailable Primary Care Provider Unavailabl e Encounter Details Date Type Department Care Team (Latest Contact Info) Description 01/06/2019 Abstract [facility] CONVERSIONS Dental, Provider, DDS Social History [...]
--- OUTSIDE RECORDS SUMMARY | 2025-07-20 16:54 | XMS_ITS | Clinical Summary ---
Author Organization [employer] Address [address] [place] [address] 7t [place] [address] Care Team Providers Care Flat Knitter Helper Name Role Phone Unavailable Primary Care Provider Unavailabl e Allergies Active Allergy Reactions Criticality Noted Date Comments Acetaminophen 07/07/2018 Lamotrigine 09/17/2010 Other reaction(s): vomiting: diarrhea Latex 05/07/2013 [place] 09/17/2010 Other reaction(s): rash, rash GI upset, red, itchy blotches Oxycodone 07/07/2018 Sulfa Antibiotics 09/17/2010 Other reaction(s): rash Unknown systemic reaction Wound Dressing Adhesive 02/05/2023 Itching, rash Medications insulin pen needle 31G x 5 mm [facility] Ultra-Fine Mini Pen Needle 31 gauge x 3/16 Active glucose blood test strip OneTouch Verio test strips TO TEST BLOOD GLUCOSE 7 TIMES PER DAY 30 DAYS Active Continuous Blood Gluc Sensor (FreeStyle Jose 2 Sensor) [facility] FreeStyle Jose 2 Sensor kit CHANGE EVERY [...] Blood Gluc Sensor (FreeStyle Jose 2 Sensor) [facility] APPLY SENSOR TO SKIN EVERY 14 DAYS [...] MINI PEN NEEDLES 31G X 5 MM [facility] USE TO INJECT 7 TIMES PER DAY [...] check TSH today and will communicate through [place] about results. 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
--- OUTSIDE RECORDS SUMMARY | 2025-07-20 16:54 | XMS_ITS | Encounter Summary ---
Author Organization [facility] Address [address] [place] [address] [place] [phone] Phone Care Team Providers Care Drier Operator Head Name Role Phone Kelly Rizvi MD Primary Care Provid er Reason for Visit * Reason Onset Date Comments Appointment 06/28/2025 Encounter Details Date Type Department Care Team ([facility] st Contact Info) Description 06/28/2025 Telephone [facility] [address] [place] [address] [place] [address] Suri Max MD [address] [place] [phone] [email or web address] Appointment Social History Tobacco Use Types Packs/Day [...] today s appt was booked. Central Support Powder Compounder (Please do not reply to this user; this inbox is not monitored.) Thank you. documented in this encounter Plan of Treatment Upcoming Encounters Date Type Department Care Team (Late st Contact Info) Description 11/08/2025 10:40 AM EST Office Visit [facility] [address] [place] [address] Suri Max MD [address] [place] [phone] [email or web address] documented as of this encounter Visit Diagnoses Not on filedocumented in this encounter Care Teams Drier Operator Head Relationship Specialty Start Date End Date Kelly Rizvi MD [address] [place] [address] PCP - General Internal Medicine 10/19/24 documented as of this encounter Additional Source Comments The information contained in this document represents components of the legal health record. It is not the complete legal health record.[facility]
--- OUTSIDE RECORDS SUMMARY | 2025-07-20 16:55 | XMS_ITS | Encounter Summary ---
Author Organization [employer] Address [address] [facility] 7 [place] [address] Care Team Providers Care Pickle Water Pump Operator Name Role Phone Unavailable Primary Care Provider Unavailabl e Encounter Details Date Type Department Care Team (Latest Contact Info) Description 03/06/2021 Abstract [facility] CONVERSIONS Dental, Provider, DDS Social History [...]
--- OUTSIDE RECORDS SUMMARY | 2025-07-20 16:55 | XMS_ITS | Encounter Summary ---
Author Organization [employer] Address [address] [facility] 7 [place] [address] Care Team Providers Care Dermatology Nurse Name Role Phone Unavailable Primary Care Provider Unavailabl e Reason for Visit * Reason Onset Date Comments Prior Authorization 10/30/2022 Patient call ed in Requesting if PA Has been Received pls Advise AV Encounter Details Date Type Department Care Team ([facility] st Contact Info) Description 10/30/2022 Telephone [facility] ADULT DENTAL [address] [place] [address] Radha Marcelino, DDS [address] [place] [address] Prior Authorization (Patient called in Requesting if [...]
--- OUTSIDE RECORDS SUMMARY | 2025-07-20 16:55 | XMS_ITS | Encounter Summary ---
Author Organization [employer] Address [address] [facility] 7t [place] [address] Care Team Providers Care Risk Tech Name Role Phone Unavailable Primary Care Provider Unavailabl e Encounter Details Date Type Department Care Team (Late st Contact Info) Description 01/07/2023 Abstract [facility] ADULT DENTAL [address] [place] [address] Radha Marcelino, DDS [address] [place] [address] Social History Tobacco Use Types Packs/Day Years [...]
--- OUTSIDE RECORDS SUMMARY | 2025-07-20 16:55 | XMS_ITS | Encounter Summary ---
Author Organization [employer] Address [address] [facility] 7t [place] [address] Care Team Providers Care Warning Coordination Meteorologist Name Role Phone Unavailable Primary Care Provider Unavailabl e Encounter Details Date Type Department Care Team (Late st Contact Info) Description 01/08/2023 Abstract [facility] ADULT DENTAL [address] [place] [address] Radha Marcelino, DDS [address] [place] [address] Social History Tobacco Use Types Packs/Day Years [...]
--- OUTSIDE RECORDS SUMMARY | 2025-07-20 16:55 | XMS_ITS | Encounter Summary ---
Author Organization [employer] Address [address] [facility] 7t [place] [address] Care Team Providers Care Assembler Bicycle Name Role Phone Unavailable Primary Care Provider [...] sent to [facility] regarding patient. She would also like to speak to management regarding her case. Encounter Details Date Type Department Care Team (Late st Contact Info) Description 11/20/2022 Telephone [facility] ADULT DENTAL [address] [place], [place] [phone] Radha Marcelino DDS [address] [place], [place] [phone] Appointment (Patient had appt scheduled for 11/22. [...] sent to [facility] regarding patient. She would also like to [...] sent to [facility] regarding patient. She would also like to speak to management regarding her case. documented in this encounter Plan of Treatment Not on file documented as of this encounter Visit Diagnoses Not on filedocumented in this encounter
--- OUTSIDE RECORDS SUMMARY | 2025-07-20 16:56 | XMS_ITS | Patient Health Record ---
Author Organization [facility] Address [address] [place] [address] Care Team Providers Care Breast Worker Name Role Phone ELMIRA LAI, KALLI Primary Care Provider Nicholas Estrada Unavailable [phone] Allergies Allergen (clinical drug ingredient) Drug/Non Drug Allergy documented on EMR Reaction Allergy Type Onset Date Status lithium citrate [place] Unknown Drug Allergy A ctive Sulfa Unknown [...] Omeprazole 20 MG TAKE 1 CAPSULE BY [facility] EVERY DAY; Duration: 90 Active Immunizations Vaccine Route Administration Date [...] Problem Status W/U Status Risk Notes Problem Colon cancer screening (650362268) Colon cancer screening (Z12.11) Active confirmed Problem Gastroesophageal reflux disease (115940059) Gastroesophageal reflux disease, esophagitis presence not specified (K21.9) Active confirmed Problem Constipation (30365434) Constipation, unspecified constipation type (K59.00) Active confirmed Problem Gastroesophageal reflux disease (502158059) Gastroesophageal reflux disease, unspecified whether esophagitis present (K21.9) Active confirmed Plan Of Treatment Future Test Test Name Order Date UPPER GI ENDOSCOPY 10/16/2022 COLONOSCOPY 10/16/2022 Insurance Providers Payer Name Payer Address Payer Phone Subscriber Number Group Number Insured Name Patient Relationship to Insured Coverage Start Date Coverage End Date [facility] [address] [place] [phone] [id number] MITESH NEVAREZ Self - patient is the insured Medical (General) History Medical History History ICD Code IDDM--since age 13 Anxiety Hypothyroidism Constipation---seen by Jose SHUKLA MD--descibes a flex sig at [place] > 10 years ago--improved with Miralax GERD Denies [place],CVA,Lung disease,renal disease Surgical History Surgery Date(Month/Year) Shoulder-Dr. Bush--rotator cuff 8
--- OUTSIDE RECORDS SUMMARY | 2025-07-20 16:56 | XMS_ITS | Encounter Summary ---
Author Organization [employer] Address [address] [place] [address] 7 [place] [address] Care Team Providers Care Structural Manager Name Role Phone Unavailable Primary Care Provider Unavailabl e Encounter Details Date Type Department Care Team (Latest Contact Info) Description 04/22/2022 Abstract [facility] CONVERSIONS Dental, Provider, DDS Social History Tobacco [...]
--- OUTSIDE RECORDS SUMMARY | 2025-07-20 16:56 | XMS_ITS | Clinical Summary ---
Author Organization [facility] Address [address] [place] [phone] Phone Care Team Providers Care Truant Officer Name Role Phone Kelly Rizvi MD Primary Care Provid er Allergies Active Allergy Reactions Criticality Noted Date Comments Fluvoxamine 10/21/2024 Paranoia [place] Analogues 02/05/2023 GI upset, red, itchy blotches Sulfa (Sulfonamide Antibiotics) 02/05/2023 Unknown systemic reaction Adhesive Tape-Silicones 02/05/2023 Itching, rash Medications docusate sodium (COLACE) 50 MG capsule Take 50 mg by mouth 2 (two) times a day as needed for mild constipation. Active topiramate (TOPAMAX) 50 MG tablet Take 1 tablet by mouth 2 (two) times a day. Active glucagon 3 mg/actuation [place] 1 spray by Nasal route as needed. [...] Active Additional Information Patient not taking.Reported on 07/20/2025 omeprazole (PRILOSEC) 20 MG capsule Take 1 [...] mail new lab order - Will contact [employer] rep to set up training - Follow-up [...] lipohypertrophy on the abdomen. Suboptimal control by BFKW 3 CGM download. Using between 16 to [...] check TSH today and will communicate through [place] about results. 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 [...] Encounters Date Type Department Care Team Description 07/20/2025 3:00 PM EDT Office Visit [facility] [address] [place] [address] [place] [address] uSri Max MD Type 1 diabetes mellitus with hyperglycemia (Primary Dx); Acquired hypothyroidism 07/06/2025 Telephone [facility] [address] [place] [address] [facility] 06/28/2025 3:40 PM EDT Telemedicine - audio only [facility] [address] [place] [address] Suri Max MD Type 1 diabetes mellitus with hyperglycemia (Primary Dx); Acquired hypothyroidism 06/28/2025 Telephone [facility] [address] [place] [address] [place] [address] Suri Max MD Appointment 06/22/2025 2:30 PM EDT Telemedicine - audio only [facility] [address] [place] [address] [place] [address] Tricia Rodriguez PA-C Type 1 diabetes mellitus with hyperglycemia (Primary Dx) 06/22/2025 Telephone [facility] [address] [place] [address] Tricia Rodriguez PA-C Call Dropped 06/15/2025 Telephone [facility] [address] [place] [address] Iman Hernandez returning call 05/23/2025 4:30 PM EDT Telemedicine - audio only [facility] [address] [place] [address] Suri Max MD Type 1 diabetes mellitus with hyperglycemia (Primary Dx) from Last 3 Months Social History Tobacco [...] Pulse 79 07/20/2025 2:54 PM EDT Temperature 36.3 C (97.3 F) 09/03/2023 2:52 PM EST Respiratory Rate - - Oxygen Saturation 99% 07/20/2025 2:54 PM EDT Inhaled Oxygen Concentration - - Weight 55.8 kg (123 lb) 07/20/2025 2:54 PM EDT Height 165.1 cm (5' 5 ) 07/20/2025 2:54 PM EDT Body Mass Index 20.47 07/20/2025 2:54 PM EDT Plan of Treatment Upcoming Encounters Date Type Department Care Team (Late st Contact Info) Description 11/08/2025 10:40 AM EST Office Visit [facility] [address] [place] [address] [place] [address] Suri Max MD [address] [place] [phone] [email or web address] Due Date Last Done Comments [...] (#1) 2025 COVID-19 VACCINE ( season) 2025 SMOKING Hx and SMOKELESS TOBACCO SCREENING 06/28/2026 06/28/2025 TSH LEVEL 07/01/2026 07/01/2025, 09/29, 03/20/2024, Additional history exists Adult Td,Tdap Booster 06/03/2029 06/03/2019, 008 HEPATITIS [...] Procedure Name Priority Date/Time Associated Diagnosis Comments COMPREHENSIVE METABOLIC PANEL Routine 07/01/2025 12:42 PM EDT Type 1 diabetes mellitus with hyperglycemia TSH WITH REFLEX Routine 07/01/2025 12:42 PM EDT Type 1 diabetes mellitus with hyperglycemia HEMOGLOBIN A1C Routine 07/01/2025 12:42 PM EDT Type 1 diabetes mellitus with hyperglycemia from Last 3 Months Results * Comprehensive metabolic panel (07/01/2025 12:42 PM EDT) Blood Suri Max MD LAB BLOOD ORDERABLES Final Res ult Performing Organization Address [facility] Co de Phone Number [address] [phone] * TSH with reflex (07/01/2025 12:42 PM EDT) Blood Suri Max MD LAB BLOOD ORDERABLES Final Res ult Performing Organization Address [facility] Co de Phone Number [address] [phone] * Hemoglobin A1c (07/01/2025 12:42 PM EDT) Blood Suri Max MD LAB BLOOD ORDERABLES Final Res ult Performing Organization Address [facility] Co de Phone Number [address] [phone] from Last 3 Months Insurance CARE MEDICARE REPLACEMENT CARE MEDICARE REPLACEMENT CARE MEDICARE REPLACEMENT CARE MEDICARE REPLACEMENT MEDICARE REPLACEMENT CARE MEDICARE REPLACEMENT [facility] ONE CARE MEDICARE REPLACEMENT [place] [id number] Care Teams Truant Officer Relationship Specialty Start Date End Date Kelly Rizvi MD [address] [place] [address] PCP - General Internal Medicine 10/19/24 Additional Source Comments The information contained in this document represents components of the legal health record. It is not the complete legal health record.[facility]
--- OUTSIDE RECORDS SUMMARY | 2025-07-20 16:57 | XMS_ITS | Encounter Summary ---
Author Organization [employer] Address [address] [facility] 7t [place] [address] Care Team Providers Care Assurance Services Manager Health Care Name Role Phone Unavailable Primary Care Provider Unavailabl e Encounter Details Date Type Department Care Team (Late st Contact Info) Description 01/17/2023 Abstract [facility] ADULT DENTAL [address] [place] [address] Radha Marcelino, DDS [address] [place] [address] Social History Tobacco Use Types Packs/Day Years [...]
--- OUTSIDE RECORDS SUMMARY | 2025-07-20 16:57 | XMS_ITS | Encounter Summary ---
Author Organization [employer] Address [address] [facility] 7t [place] [address] Care Team Providers Care Power Electronics Research Engineer Name Role Phone Unavailable Primary Care Provider Unavailabl e Encounter Details Date Type Department Care Team (Late st Contact Info) Description 01/09/2023 Abstract [facility] ADULT DENTAL [address] [place] [address] Radha Marcelino, DDS [address] [place] [address] Social History Tobacco Use Types Packs/Day Years [...]
== END 2025-07-20 12:00 | disposition home or self-care (01) ==
LOC: HO.MAMMO 11:59
PROVIDERS: PCP Internal Medicine; Visit Provider Internal Medicine
DX: Z12.31 Encounter for screening mammogram for malignant neoplasm of breast (principal)
CPT/HCPCS: 77063; 77067

== ENCOUNTER → 2025-07-20 12:00 | Outpatient (BNV) | payer OTHER, SELFPAY | PROVIDERS: PCP Internal Medicine; Visit Provider Radiology Body Imaging | DX: Z12.31 Encounter for screening mammogram for malignant neoplasm of breast (principal) | CPT/HCPCS: 77063; 77067 ==

== ENCOUNTER 2025-08-03 10:54 | Outpatient (REF) | payer OTHER, SELFPAY ==
--- NOTE | ~2025-08-03 | XR_ITS ---
EXAMINATION: XR KNEE, RIGHT CLINICAL INFORMATION: M25.561 - Pain in right knee COMPARISON: None available. TECHNIQUE: Three views of the right knee. FINDINGS: There is no joint effusion. There is mild narrowing of the medial joint space. Small marginal osteophytes are present involving patella. XR/XR knee RT 2V IMPRESSION: Minimal degenerative change. Electronically signed by: Santosh Pugh MD 08/03/2025 01:58 PM EST
--- NOTE | ~2025-08-03 | XR_ITS ---
EXAMINATION: XR HIP, RIGHT CLINICAL INFORMATION: M25.551 - Pain in right hip COMPARISON: None available. TECHNIQUE: AP and frog-leg lateral views of the right hip. FINDINGS: Small marginal osteophytes are present involving the acetabular roof and lateral femoral head. There is minimal superior lateral joint space narrowing. No other abnormality is identified. XR/XR hip RT min 2V IMPRESSION: Mild osteoarthritis of the right hip. Electronically signed by: Santosh Pugh MD 08/03/2025 01:58 PM JAYDA DURON
--- NOTE | ~2025-08-03 | XR_ITS ---
EXAMINATION: XR SHOULDER, RIGHT CLINICAL INFORMATION: M25.511 - Pain in right shoulder COMPARISON: None available. TECHNIQUE: Three views of the right shoulder. FINDINGS: 2 anchors are in position in the greater tuberosity. Small marginal osteophytes are visible in the inferior glenoid and humeral head. The AC joint is intact. There is no dislocation. XR/XR shoulder RT min 2V IMPRESSION: Anchors related to rotator cuff repair and mild degenerative disease in the glenohumeral joint. Electronically signed by: Santosh Pugh MD 08/03/2025 01:55 PM EST
--- NOTE | ~2025-08-03 | XR_ITS ---
EXAMINATION: XR LUMBOSACRAL SPINE CLINICAL INFORMATION: M54.50 - Low back pain, unspecified COMPARISON: None available. TECHNIQUE: Three views of the lumbosacral spine. FINDINGS: There are 5 nonrib-bearing lumbar sequence. There is mild convex left curvature of the lumbar spine. Vertebral body height and alignment is preserved. Minimal endplate osteophytes are present at L1-2, L2-3 and L3-4. XR/XR lumbar spine 2-3V IMPRESSION: Minimal degenerative disc disease. Electronically signed by: Santosh Pugh MD 08/03/2025 01:57 PM JAYDA
== END 2025-08-03 10:55 | disposition home or self-care (01) ==
LOC: HO.XRAY 10:54
PROVIDERS: Absent Provider Internal Medicine; PCP Internal Medicine; Visit Provider Advanced Practice Midwife
DX: Z01.419 Encounter for gynecological examination (general) (routine) without abnormal findings (principal); Z30.09 Encounter for other general counseling and advice on contraception; N88.9 Noninflammatory disorder of cervix uteri, unspecified; B37.31 Acute candidiasis of vulva and vagina; E10.65 Type 1 diabetes mellitus with hyperglycemia; M25.561 Pain in right knee; M54.50 Low back pain, unspecified; M25.511 Pain in right shoulder; Z20.2 Contact with and (suspected) exposure to infections with a predominantly sexual mode of transmission; Z11.51 Encounter for screening for human papillomavirus (HPV); Z79.899 Other long term (current) drug therapy
CPT/HCPCS: 72100; 73030; 73502; 73560; 81515; 87491; 87591; 87626; 88175; 99396

== ENCOUNTER 2025-08-03 10:54 | Outpatient (AMB) | payer OTHER, SELFPAY ==
--- NOTE | 2025-08-03 10:54 | MHC.OFFVIS ---
Vital Signs 08/03/25 11:11 Height 5 ft 5 in Weight 125 lb BMI 20.8 BP 110/72 Intake Visit Reasons: Annual/ DO NOT RS Help Desk Consultant: Help Desk Consultant Present (Lilliana) Accompanied by: Self / Same As Patient Allergies lithium (Birney) Allergy (Unknown, Verified 08/03/25 11:09) VOMITTING/DIARRHEA silver (From TEGADERM AG MESH) Allergy (Unknown, Verified 08/03/25 11:09) ITCHY RASH Sulfa (Sulfonamide Antibiotics) Allergy (Unknown, Verified 08/03/25 11:09) RASH,HIVES sulfamethoxazole Allergy (Unknown, Verified 08/03/25 11:09) rash Birney Carbonate Allergy (Unknown, Uncoded 10/18/24 12:42) rash Tegaderm Allergy (Unknown, Uncoded 10/18/24 12:42) Unknown tegaderm Allergy (Unknown, Uncoded 10/18/24 12:42) Unknown Medication List - Last Reconciled 08/03/25 by Adrienne Gaxiola CNM blood sugar diagnostic (Togic SoftwareTouch Verio test strips) As directed blood-glucose sensor (FreeStyle Jose 3 Sensor device) As directed cholecalciferol (vitamin D3) 25 mcg PO DAILY docusate sodium 100 mg PO BID flash glucose sensor (FreeStyle Jose 2 Sensor kit) As directed hydroxyzine HCl 25 mg PO BID PRN insulin aspart U-100 (Novolog FlexPen U-100 Insulin aspart) 1 sliding scale dose subcut USEASDIRECTD insulin degludec (Tresiba FlexTouch U-100 insulin) units subcut ketotifen fumarate 0.025%(0.035%) ([place]) 1 drp ophthalmic (eye) BID levothyroxine 100 mcg PO DAILY Glenda-BE (norethindrone (contraceptive)) 0.35 mg PO DAILY NS omeprazole 20 mg PO DAILY pen needle, diabetic (BD Ultra-Fine Mini Pen Needle) As directed sennosides (senna) 17.2 mg PO DAILY topiramate TAKE 1 TABLET BY MOUTH TWICE A DAY Is last menstrual period known: Yes Last menstrual period: 07/21/25 Post menopausal: No Patient : No HPI HPI Annual/ DO NOT RS: Details: 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 She has a complicated medical history in that she is type 1 diabetic she has had some challenges with managing her blood sugars she does have a sensor that she wears that communicates with her phone. The pumps have been unwearable for her so our on workable she has had some challenges with her blood sugars dipping in the morning and at night and during the daytime she can correct it but the night times are more tricky. She also says some elevated sugars at time she had a high 1 in the last 24 hours. She has been seeing the same pasting machine operator for many years. She does not have transportation so getting to appointments is tricky. She had a recent episode of yeast infection but the soonest appointment was 2 weeks and she was frustrated that she was not able to get a prescription for fluconazole and it took a lot of difficulty getting a prescription from another provider. She is not having any symptoms now. She is still on control pills and wants to stay on them could she is sexually active with her boyfriend who lives elsewhere but comes to visit on weekends. She gets very very light periods that are sometimes just spotting. She is up-to-date on her mammograms. She did have a sensation on Friday that she might have a UTI but no symptoms now nor since. She has also had some unusual pains through her body that she thought might be connected to her past rotator cuff injury but also hip concerned and a pain that went down her leg and she was trying to figure that out. She does go walking for exercise and she does do stretches. [facility] Medical History Diabetes Abnormality of cervix Anxiety Hypothyroidism Surgical History History of rotator cuff surgery Family History Mother Breast cancer, Onset Age: 38 Osteoporosis Social History Housing: Apartment Alcohol intake: current Alcohol intake frequency: holidays/special occasions only Patient Tobacco Use Status: Former Tobacco user Tobacco use type: Cigarette Years Smoked: 10 years e-Cigarette/Vaping Use: Never Used Second Hand Smoke Exposure: No service: No Current occupational status: disabled Cognitive needs: No Hearing needs: No Vision needs: Yes Female Reproductive History Menstrual Age of Menarche: 13 Duration of menses: <3 days Date of last menstrual period: 07/21/25 control method: pills Total pregnancies: 0 Date of last pap smear: 07/01/23 (negative pap smear, negative hpv) History of abnormal pap smear: Yes (LIZZY,1996&1997) Date of Mammogram: 07/20/25 (bi rad 1) Physical Exam Vital Signs: Last Vital Signs BP 110/72 08/03/25 11:11 BMI result Body Mass Index 20.8 Const General: healthy appearing, comfortable, no acute distress, well developed and alert Nutritional Appearance: average body habitus Orientation/consciousness: patient oriented x3 Limitations: no limitations HEENT Head: Yes normocephalic Neck Neck: Yes normal visual inspection Chest Chest palpation & inspection: normal inspection of the chest Breast/axilla inspection: normal inspection of the breasts and normal inspection of the axillae Breast/axilla palpation: normal palpation of the breasts and normal palpation of the axillae Resp Effort & Inspection: normal respiratory effort GI Inspection: Yes normal to inspection, No Abdominal wall edema and No distended Palpation (GI): Soft to palpation and nontender General: Yes bladder normal to palpation External Female Exam: normal external appearance and normal appearance of the urethra Speculum Exam - Vagina: normal appearance of the vagina, normal palpation and normal vaginal discharge Speculum Exam - Cervix: normal appearance of the cervix, normal palpation and nontender Bimanual exam- vagina & uterus: normal bimanual exam, normal palpation, uterine size normal, bladder normal to palpation, consistency normal, normal palpation, uterine mobility normal, uterine shape normal, No Cervical tenderness present, non-tender and no cervical motion tenderness Bimanual Exam- Adnexa, other: normal adnexae, no masses, normal and No adnexal tenderness Neuro General: patient oriented x3 Results Reviewed Results Reviewed: 07/02/2024 PAP IS NEGATIVE WITH NEGATIVE HPV (DONE AT [facility] AND IS IN SCANNED LAB SECTION) Assessment & Plan Assessment & Plan (1) Cervical cancer screening: Comment: See abnormality of cervix entry. 07/02/2024 Pap is negative with negative HPV Code(s): Z12.4 - Encounter for screening for malignant neoplasm of cervix Category: Medical (2) Abnormality of cervix: Comment: irregular bumps at internal os seen on 9/19/22 exam. HPV pos, cytology neg. Per [facility] repeat Pap in 1 year.; note patient does remember she had some sort of procedure but who is many years ago Today, 06/30/23- cervix gives appearance of having had LEEP in the past and nabothian cysts Pap done.; 07-21 Pap is negative with negative HPV.; 07/02/2024 cervix has definite appearance of past leaps patient is thinking now on reviewing history she may have had a 1 but she had come out of a coma at the time so does not have complete memory.; 07/02/2024 Pap is negative with negative HPV. Code(s): N88.9 - Noninflammatory disorder of cervix uteri, unspecified Category: Medical (3) Yeast infection of the vagina: Comment: No symptoms at the moment, but pt is type 1 DM, offering refill prn rx for diflucan, along with Monistat for comfort Code(s): B37.3 - Candidiasis of vulva and vagina Category: Medical (4) control counseling: Code(s): Z30.09 - Encounter for other general counseling and advice on contraception Category: Medical (5) Type 1 diabetes mellitus with hyperglycemia, with long-term current use of insulin: Comment: Has pump and sensor reports at least 2 spikes of blood sugar to 300s in am in a week, patient will be discussing with endocrinology. Code(s): E10.65 - Type 1 diabetes mellitus with hyperglycemia Category: Medical (6) Well woman exam with routine gynecological exam: Code(s): Z01.419 - Encounter for gynecological examination (general) (routine) without abnormal findings Category: Medical (7) Screen for sexually transmitted diseases: Code(s): Z11.3 - Encounter for screening for infections with a predominantly sexual mode of transmission Category: Medical Plan -----Discussed in this visit the following: healthy balanced diet, regular and consistent exercise, getting recommended health screens, doing the best she can for her particular health concerns, kegel exercises, pap smear screening and followup recommendations, mammography screening and SBE, normal changes in cycles in her life stage--- . This was a very lengthy visit discussing the challenges of all of the things that she brought up. She has no symptoms of yeast at this current time but given her type 1 diabetes in the challenges of managing her blood sugars it would be understandable that she might have 1 occasionally. I gave her a prescription for fluconazole with 5 refills and also prescription for my con azole 7 that she can use at her discretion . This note is constructed using voice recognition software. While every effort has been made to ensure accuracy, knife grinder errors may have been included. I am also refilling her control pills for her for another year she is very clear that she wants the same prescription using the brand name Glenda with no substitutions that has been ordered for the last several visits I went into the older prescriptions to ensure that it was the same. Discussed the other challenges she is experiencing and life stressors with her landlord as well. RTC 1 year. Medications: New fluconazole may repeat second dose 72 hrs after first dose if symptoms persist 150 mg PO Q3D 2 tabs 5RF 2 doses miconazole nitrate 2% (Miconazole-7) 1 appful vaginal BEDTIME 45 grams 5RF 7 days Changed From Glenda-BE (norethindrone (contraceptive)) 0.35 mg PO DAILY 84 tabs 0RF NS To Glenda-BE (norethindrone (contraceptive)) take one tab daily as directed 0.35 mg PO DAILY 84 tabs 4RF NS Coding Level of Care Code Est Pt Prev Care 40-64y(29127) Diagnoses Cervical cancer screening Z12.4 Abnormality of cervix N88.9 Yeast infection of the vagina B37.3 control counseling Z30.09 Type 1 diabetes mellitus with hyperglycemia, with long-term current use of insulin E10.65 Well woman exam with routine gynecological exam Z01.419 Screen for sexually transmitted diseases Z11.3
[2025-08-03 11:11] VITALS: BP 110/72; BMI 20.8
--- OUTSIDE RECORDS SUMMARY | 2025-08-03 12:52 | XMS_ITS | Encounter Summary ---
Author Organization [facility] Address [address] [place] [address] [place] [phone] Phone Care Team Providers Care Salvager Name Role Phone Kelly Rizvi MD Primary Care Provid er Reason for Visit * Reason Onset Date Comments Appointment 06/28/2025 Encounter Details Date Type Department Care Team ([facility] st Contact Info) Description 06/28/2025 Telephone [facility] [address] [place] [address] [place] [address] Suri Max MD [address] [place] [phone] [email or web address] Appointment Social History Tobacco Use Types Packs/Day [...] today s appt was booked. Central Support Real Estate Marketing Coordinator (Please do not reply to this user; this inbox is not monitored.) Thank you. documented in this encounter Plan of Treatment Upcoming Encounters Date Type Department Care Team (Late st Contact Info) Description 11/08/2025 10:40 AM EST Office Visit [facility] [address] [place] [phone] Suri Max MD [address] [place] [phone] [email or web address] documented as of this encounter Visit Diagnoses Not on filedocumented in this encounter Care Teams Salvager Relationship Specialty Start Date End Date Kelly Rizvi MD [address] [place] [address] PCP - General Internal Medicine 10/19/24 documented as of this encounter Additional Source Comments The information contained in this document represents components of the legal health record. It is not the complete legal health record.[facility]
--- OUTSIDE RECORDS SUMMARY | 2025-08-03 12:52 | XMS_ITS | Clinical Summary ---
Author Organization [employer] Address [address] [place] [address] [address] [place] [address] Care Team Providers Care Ore Smelter Name Role Phone Unavailable Primary Care Provider Unavailabl e Allergies Active Allergy Reactions Criticality Noted Date Comments Acetaminophen 07/07/2018 Lamotrigine 09/17/2010 Other reaction(s): vomiting: diarrhea Latex 05/07/2013 Virgie 09/17/2010 Other reaction(s): rash, rash GI upset, red, itchy blotches Oxycodone 07/07/2018 Sulfa Antibiotics 09/17/2010 Other reaction(s): rash Unknown systemic reaction Wound Dressing Adhesive 02/05/2023 Itching, rash Medications insulin pen needle 31G x 5 mm [facility] BD Ultra-Fine Mini Pen Needle 31 gauge x 3/16 Active glucose blood test strip OneTouch Verio test strips TO TEST BLOOD GLUCOSE 7 TIMES PER DAY 30 DAYS Active Continuous Blood Gluc Sensor (FreeStyle Jose 2 Sensor) [facility] FreeStyle Jose 2 Sensor kit CHANGE EVERY [...] Blood Gluc Sensor (FreeStyle Jose 2 Sensor) [facility] APPLY SENSOR TO SKIN EVERY 14 DAYS [...] MINI PEN NEEDLES 31G X 5 MM [facility] USE TO INJECT 7 TIMES PER DAY [...] check TSH today and will communicate through [place] about results. 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
--- OUTSIDE RECORDS SUMMARY | 2025-08-03 12:53 | XMS_ITS | Encounter Summary ---
Author Organization [employer] Address [address] [place] [address] [address] [place] [address] Care Team Providers Care System Programmer Name Role Phone Unavailable Primary Care Provider Unavailabl e Encounter Details Date Type Department Care Team (Latest Contact Info) Description 01/06/2019 Abstract [facility] CONVERSIONS Dental, Provider, DDS Social History Tobacco [...]
--- OUTSIDE RECORDS SUMMARY | 2025-08-03 12:53 | XMS_ITS | Patient Health Record ---
Author Organization [facility] Address [address] [place] [address] Care Team Providers Care Pilot Plant Operator Name Role Phone ELMIRA LAI, KALLI Primary Care Provider Nicholas Estrada Unavailable [phone] Allergies Allergen (clinical drug ingredient) Drug/Non Drug Allergy documented on EMR Reaction Allergy Type Onset Date Status lithium citrate [place] Unknown Drug Allergy A ctive Sulfa Unknown [...] Omeprazole 20 MG TAKE 1 CAPSULE BY VT UT EVERY DAY; Duration: 90 Active Immunizations Vaccine [...] Status Risk Notes Problem Colon cancer screening (614614344) Colon cancer screening (Z12.11) Active confirmed Problem Gastroesophageal reflux disease (625251819) Gastroesophageal reflux disease, esophagitis presence not specified (K21.9) Active confirmed Problem Constipation (52935485) Constipation, unspecified constipation type (K59.00) Active confirmed Problem Gastroesophageal reflux disease (468791551) Gastroesophageal reflux disease, unspecified whether esophagitis present (K21.9) Active confirmed Plan Of Treatment Future Test Test Name Order Date UPPER GI ENDOSCOPY 10/16/2022 COLONOSCOPY 10/16/2022 Insurance Providers Payer Name Payer Address Payer Phone Subscriber Number Group Number Insured Name Patient Relationship to Insured Coverage Start Date Coverage End Date [facility] [address] [place] [phone] [id number] MITESH NEVAREZ Self - patient is the insured Medical (General) History Medical History History ICD Code IDDM--since age 13 Anxiety Hypothyroidism Constipation---seen by Jose SHUKLA MD--descibes a flex sig at [place] > 10 years ago--improved with Miralax GERD Denies LA,CVA,Lung disease,renal disease Surgical History Surgery Date(Month/Year) Shoulder-Dr. Bush--rotator cuff 8
--- OUTSIDE RECORDS SUMMARY | 2025-08-03 12:53 | XMS_ITS | Encounter Summary ---
Author Organization [employer] Address [address] [facility] [address] [place] [address] Care Team Providers Care Blue Print Control Clerk Name Role Phone Unavailable Primary Care Provider Unavailabl e Encounter Details Date Type Department Care Team (Late st Contact Info) Description 01/09/2023 Abstract [facility] ADULT DENTAL [address] [place] [address] Radha Marcelino, DDS [address] [place] [address] Social History Tobacco Use Types Packs/Day Years [...]
--- OUTSIDE RECORDS SUMMARY | 2025-08-03 12:53 | XMS_ITS | Encounter Summary ---
Author Organization [facility] [employer] Address [address] [facility] [address] [place] [address] Care Team Providers Care Groundsman Name Role Phone Unavailable Primary Care Provider Unavailabl e Reason for Visit * Reason Onset Date Comments Prior Authorization 10/30/2022 Patient call ed in Requesting if PA Has been Received pls Advise AV Encounter Details Date Type Department Care Team ([facility] st Contact Info) Description 10/30/2022 Telephone [facility] ADULT DENTAL [address] [place] [address] Radha Marcelino, DDS [address] [place] [address] Prior Authorization (Patient called in Requesting if [...]
--- OUTSIDE RECORDS SUMMARY | 2025-08-03 12:53 | XMS_ITS | Encounter Summary ---
Author Organization [employer] Address [address] [facility] [address]t [place] [address] Care Team Providers Care Motor Vehicle Parts Interpreter Name Role Phone Unavailable Primary Care Provider Unavailabl e Encounter Details Date Type Department Care Team (Late st Contact Info) Description 01/07/[address] [facility] ADULT DENTAL [address] [place] [address] Radha Marcelino, DDS [address] [place] [address] Social History Tobacco Use Types Packs/Day Years [...]
--- OUTSIDE RECORDS SUMMARY | 2025-08-03 12:53 | XMS_ITS | Encounter Summary ---
Author Organization [employer] Address [address] [facility] [address] [place] [address] Care Team Providers Care Boat Canvas Maker And Installer Name Role Phone Unavailable Primary Care Provider [...] be without them. Email was sent to [facility] regarding patient. She would also like to speak to management regarding her case. Encounter Details Date Type Department Care Team (Late st Contact Info) Description 11/20/2022 Telephone [facility] ADULT DENTAL [address] [place], [place] [phone] Radha Marcelino DDS [address] [place], [place] [phone] Appointment (Patient had appt scheduled for 11/22. It was supposed to be for new partials but approval has not come in as of yet . She wants to have to ones she currently has repaired in the meantime. But she had to cancel because she has an interview on Friday and doesn't want to be without them. Email was sent to [facility] regarding patient. She would also like [...] be without them. Email was sent to [facility] regarding patient. She would also like to speak to management regarding her case. documented in this encounter Plan of Treatment Not on file documented as of this encounter Visit Diagnoses Not on filedocumented in this encounter
--- OUTSIDE RECORDS SUMMARY | 2025-08-03 12:53 | XMS_ITS | Encounter Summary ---
Author Organization [employer] Address [address] [place] [address] [address] [place] [address] Care Team Providers Care Hat Band Attacher Name Role Phone Unavailable Primary Care Provider Unavailabl e Encounter Details Date Type Department Care Team (Latest Contact Info) Description 04/22/2022 Abstract [facility] CONVERSIONS Dental, Provider, DDS Social History [...]
--- OUTSIDE RECORDS SUMMARY | 2025-08-03 12:53 | XMS_ITS | Data Portability ---
Author Organization [facility] Address [address] [place] [address] Care Team Providers Care Sales Account Leader Name Role Phone HIM CCA OTHER Assessment Encounter Date Assessment Date Assessment LastModified by Organization Details LastModified Time 05/23/2025 05/23/2025 50 yo F with DM1 (last a1c 9.8%) and recurrent vaginal candidiasis calling w 4 days of vaginal itching and white clumpy discharge. No malodor. Typically has a rx for diflucan w/refills but her DIRECTOR OF RETAIL MERCHANDISING is on medical leave currently and the practice told her to come in for a vaginosis swab in order to get the rx. Pt reports that she has agoraphobia and no transportation for the next 2 weeks. VS wnl. Given sxs c/w vulvovaginal yeast infection, will send rx for diflucan 150mg x 1 now. FUP w PCP, DIRECTOR OF RETAIL MERCHANDISING, and endo for ongoing BG control. [email or web address] Not available 05/23/2025 20:06:04 Plan of Treatment Reminders Order Date Submit Date Provider Last Modified By Organization Details Last Modified Time Details Appointments None recorded. Lab unlisted lab - urinalysis w/reflex culture 2021 022 [facility] (Centralized Electronic Ordering - All Locations), Patient Can Go To The Location Of Their Choice, [address] 15:18:14 Referral None recorded. Procedures None recorded. Surgeries None recorded. Imaging None recorded. Medication Orders fluconazole 150 mg tablet 2024 025 EDY [id number], [address] [facility], [place], [address], 5 20:06:06 nitrofurant oin monohydrate /macrocryst als 100 mg capsule 2021 022 [id number], [address] [place], [address], 2 10:43:10 Pyridium 100 mg tablet 2021 022 [id number], [address] [place], [address], 10:31:31 Patient TargetsNo targets recorded. Patient InstructionsNo instructions recorded. Reason for Referral None Reported. Medical Equipment None Reported. Allergies Allergen ID Allergen Name Allergen Category Reaction Reaction Severity Criticality Documentation Date Start Date Code Code System Note Provider Name and Address Organization Details Recorded Time 86797 Substance with sulfonami de structure and antibacte rial mechanism of action (substanc e) medicatio n Not available Not available Not available 05/23/2025 09251 8003 SNOMED Not Available [facility] - production 15:11:30 91556 lithium Not available Not available Not available Not available 05/23/2025 6448 RxNorm Not Available [facility] - production 15:11:30 26836 adhesive tape environme nt,medica tion Not available Not available Not available 05/23/2025 Not Available [facility] - production 15:11:30 Medications Name Sig Start Date Stop Date Status Note LastModified by Organization Details LastModified Time amoxicillin 500 mg capsule TAKE 1 CAPSULE (500MG) BY ORAL ROUTE EVERY 8 HOURS UNTIL DONE active Not Available Not Available No t Available ketoconazole 2 % shampoo APPLY TO THE FACE FACE WASH, LATHER AND RINSE AND FOLLOW WITH MOISTURIZIN G CREAM. active Not Available Not Available No t Available fluconazole 150 mg tablet TAKE 150 MG BY ORAL ROUTE. active Not Available Not Available No t Available senna 8.6 mg tablet TAKE 2 TABLETS BY MOUTH AT BEDTIME NEEDED FOR CONSTIPATIO N 30 active Not Available Not Available No t Available Pyridium 100 mg tablet Take 1 tablet 3 times a day by oral route for 2 days. 2021 active Not Available Not Available Not Avai lable metronidazol e 500 mg tablet 500 MG ORALLY 2 TIMES A DAY FOR 7 DAYS TAKE WITH FOOD, AVOID ALCOHOL AND VINEGAR PRODUCTS active Not Available Not Available No t Available Miconazole-7 2 % vaginal cream APPLY 1 APLICATOR VAGINALLY BEDTIME FOR 7 DAYS USE NEEDED FOR SYMPTOMATIC RELIEF OF YEAST active Not Available Not Available No t Available levothyroxin e 100 mcg tablet TAKE 1 TABLET BY MOUTH EVERY DAY IN THE MORNING active Not Available Not Available No t Available lorazepam 0.5 mg tablet PLEASE SEE ATTACHED FOR DETAILED DIRECTIONS active Not Available Not Available N ot Available cephalexin 500 mg capsule TAKE 1 [...] Not Available Not Available No t Available fluvoxamine 50 mg tablet TAKE 1 TABLET BY MOUTH EVERYDAY AT BEDTIME active Not Available Not Available No t Available metronidazol e 375 mg capsule TAKE 1 CAPSULE BY MOUTH ONCE 1 DAY FOR YEAST OVERGROWTH DUE TO ANTIBIOTIC USE active Not Available Not Available No t Available clindamycin 1 % lotion APPLY TO THE INFLAMED LESIONS ON THE FACE IN THE MORNING NEEDED active Not Available Not Available No t Available insulin aspart U-100 100 unit/mL subcutaneous cartridge MUST BE USED WITH DELIVERY DEVICE. INJECT 1-15 UNITS UNDER THE SKIN BEFORE MEALS AND SNACKS 5X A DAY active Not Available Not Available No t Available Glenda-BE 0.35 mg tablet TAKE 1 TABLET BY MOUTH EVERY DAY active Not Available Not Available No t Available Vitamin D3 25 mcg (1,000 unit) capsule TAKE 2 CAPSULES BY MOUTH EVERY DAY active Not Available Not Available No t Available Novolog FlexPen U-100 Insulin aspart 100 unit/mL (3 mL) subcutaneous PLEASE SEE ATTACHED FOR DETAILED DIRECTIONS active Not Available Not Available N ot Available azelaic acid 15 % topical gel APPLY TO THE AFFECTED AREAS ON THE FACE ONCE DAILY. active Not Available Not Available Not Available topiramate 50 mg tablet TAKE 1 TABLET BY MOUTH TWICE A DAY DIRECTED active Not Available Not Available No t Available nitrofuranto in monohydrate/ macrocrystal s 100 mg capsule TAKE 1 CAPSULE BY MOUTH TWICE DAILY FOR 5 DAYS active Not Available Not Available No t Available chlorhexidin e gluconate 0.12 % mouthwash SWISH 15 ML IN MOUTH FOR 30 SECONDS THEN SPIT OUT TWICE A DAY AFTER MEALS active Not Available Not Available No t Available BD Ultra-Fine Short Pen Needle 31 gauge x 5/16 USE 1 EACH 5 TIMES A DAY active Not Available Not Available [...] active Not Available Not Available Not Available Tresiba FlexTouch U-100 insulin 100 unit/mL (3 mL) subcutaneous pen INJECT 18 UNITS UNDER THE SKIN NIGHTLY AT BEDTIME. active Not Available Not Available No t Available FreeStyle Jose 2 Sensor kit CHANGE EVERY 14 DAYS active Not Available Not Available No t Available InPen (for Novolog or Fiasp) Addison subcutaneous INJECT 1 EACH UNDER THE SKIN 5 TIMES A DAY. USE WITH NOVOLOG CARTRIDGE BEFORE MEALS/SNACK S active Not Available Not Available No t Available FreeStyle Jose 3 Plus Sensor device USE 1 SENSOR DIRECTED. CHANGE EVERY 15 DAYS active Not Available Not Available No t Available Omnipod 5 Intro Kit(G6/Jose 2Plus) subcutaneous cartridge INJECT 1 EACH UNDER THE SKIN ONCE FOR 1 DOSE. active Not Available Not Available No t Available Omnipod 5 (G6/Jose 2 Plus) subcutaneous cartridge INJECT 1 EACH UNDER THE SKIN EVERY 3 (THREE) DAYS. active Not Available Not Available No t Available Ultra-Fine Pen Needle 31 gauge x 3/16 INJECT 1 EACH UNDER THE SKIN 6 (SIX) TIMES A DAY. active Not Available Not Available No t Available Vitals Date Recorded Heart rate Respiratory rate Oxygen saturation Oxygen saturation in Arterial blood by Pulse oximetry Body temperature Systolic And Diastolic Provider Name and Address Organization Details Last Updated DateTime 2 100 /min 16 /min 100 % 100 % 98.4 [degF] 131/83 mm[Hg] Kenyetta Bae MD [address] [place] [address],[address], [place], [address] [place], [place] - [facility] 10:28:13 Date Recorded Body height Oxygen saturation Oxygen saturation in Arterial blood by Pulse oximetry Respiratory rate Body temperature Heart rate Body weight Systolic And Diastolic Provider Name and Address Organization Details Last Updated DateTime 5 165.1 cm 98 % 98 % 19 /min 97.5 [degF] 81 /min 50905 g 135/82 mm[Hg] Not Available [facility] - production 5 19:59:14 Social History None recorded. Functional Status None recorded. Mental Status None recorded. Family History Nothing Reported. Medical History No medical history recorded. Gynecological HistoryNo gynecological history recorded. Obstetrics History GPAL:G 0 P 0 0 0 0 Past Encounters Encounter ID Performer Location Encounter Start Date Encounter Closed Date Diagnosis/Indication Diagnosis SNOMED-CT Code Diagnosis ICD10 Code Diagnosis IMO Codes Diagnosis Note [id number] Kenyetta Bae MD [address] [address] 11/25/2021 09:35:38 05/30/2022 15:05:25 Acute urinary tract infection 634740419 N39.0 Sx c/w uncompilca gavin UTI w/o pyelonephr itis. Urine dip not able to be read 2/2 color change from OTC med (uristat). Will empiricall y treat w/ Macrobid and sent UA with reflex cx.Red flag symptoms reviewed, pt instructed to call 911 if condition worsens or new symptoms develop, [place]. [id number] YADY FIGUEROA MD [facility] [address] [address] 05/23/2025 19:59:10 05/24/2025 10:22:45 Candidiasis of vagina 53772411 B37.31 [id number] Health Concerns Section Related Observation LastModified by Organization Detai ls LastModified Time None Recorded Concern Status LastModified by Organization Details LastModified Time None Recorded Advance Directives Directive None Recorded Payers Insurance Date Sequence Insurance Name Policy Number Policy Prasad Covered Member ID Prasad Member ID Guarantor Name 11/26/2023 1 [facility] - DOS PRIOR TO 2022 - DUAL ELIGIBLE (MEDICARE REPLACEMENT/ADV ANTAGE - HMO) Sunitha Travis [id number] Sunitha Travis 05/23/2025 1 [facility] - DOS ON OR AFTER 2022 - DUAL ELIGIBLE - [facility] OPT[facility] AND ONE CARE (MEDICARE REPLACEMENT/ADV ANTAGE - HMO) Sunitha Travis [id number] Sunitha Travis Notes Date Note Type Note Provider Name and Address Organization Details Recorded Time 11/25/2021 text/html Per request: 46 yo F calls in with c/o UTI symptoms x2 days. Member with urinary frequency and burning with urination, denies abd pain, denies fevers. Member states she took an OTC UTI test and it was positive. Per mine deputy hx:Dispatched to a 46 y.o female with [...] sent to pharmacy for patient, patient to apple picker today and start first dose. red flags discussed with the patient and patient advised should any red flags arise to be seen at the emergency room. cleared without incident. Kenyetta Bae MD [address] [facility],[address], [place], [address], [facility] 11/25/2021 11:31:58 05/23/2025 text/html CRC Nurse Triage Notes (Maddi Adams): Reason For Request: Patient is a type 1 diabetic, blood sugar is all over the place . Wants help with meds for a yeast infection. Denies: less than 22 weeks with heavy vaginal bleeding and fever greater than 22 weeks with heavy vaginal bleeding greater than 22 weeks with active abdominal and or back pain Last Menstrual Period greater than 6 weeks ago with sudden onset, lower abdominal pain greater than 26 weeks with reports of dysuria, denies fever or chills greater than 26 weeks with reports of sinus congestion, cough and fever greater than 26 weeks with reports of flu like symptoms and vomiting Chief Complaints: Diabetes Related PMH: Diabetes Mellitus Type 1, Hypothyroidism, Post-Traumatic Stress Disorder (PTSD), Anxiety Disorder PMH Reviewed at 05/23/2025: Allergies Reviewed at 05/23/2025:11 Comments: 50 y.o female complains of Diabetes Related Patient self-reporting symptoms: Many yeast infections Saw OBGYN in June about yeast infections - gave refills of fluconazole Blood sugars have been high (200-300s) - able to self-manage Woke up with yeast infection - prescription Called OBGYN - primary doctor on leave - covering MD will not refill prescription without visit - patient not able to be seen in office for 2 weeks due to lack of transportation White vaginal discharge, itchiness, painful Voiding adequately with no concerns Denies fever/sick symptoms Requesting instED visit I provided information on the mobile health provider response time and advised the patient and/or caregiver to monitor reported signs and symptoms. I discussed the warning signs of when to seek emergency care. .................... .................... .................... .................... .................... .................... .................... . 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 Pt stets that they spoke with their pcp and that in order [...] fully caox4 with a GCS of 15. [facility] Yady Figueroa consulted. [facility] provider has [facility] [place] with pt in regards to requested script. After appropriate questioning [facility] provides prescription to pt via her local pharmacy. Pt told to contact her local pcp for follow up as needed. Pt also educated on red flag S&S and told to contact emergency services if any present. .................... .................... .................... .................... .................... .................... .................... . [facility] Consulted: Yady Figueroa .................... .................... .................... .................... .................... .................... .................... . Disposition: Fulfilled YADY FIGUEROA MD [address] [place] [address],[address] [facility], [place], [address], NETTA MAGDALENO 05/23/2025 21:14:29 OBGyn Episode No OBEpisode recorded.
--- OUTSIDE RECORDS SUMMARY | 2025-08-03 12:53 | XMS_ITS | Encounter Summary ---
Author Organization [employer] Address [address] [facility] [address] [place] [address] Care Team Providers Care General Accountant Name Role Phone Unavailable Primary Care Provider Unavailabl e Encounter Details Date Type Department Care Team (Late st Contact Info) Description 01/08/2023 Abstract [facility] [address] [place] [address] Radha Marcelino, DDS [address] [place] [address] Social History Tobacco Use Types Packs/Day Years [...]
--- OUTSIDE RECORDS SUMMARY | 2025-08-03 12:53 | XMS_ITS | Encounter Summary ---
Author Organization [employer] Address [address] [facility] [address] [place] [address] Care Team Providers Care Coal Trammer Name Role Phone Unavailable Primary Care Provider Unavailabl e Encounter Details Date Type Department Care Team (Late st Contact Info) Description 01/17/2023 Abstract [facility] [address] [place] [address] Radha Marcelino, DDS [address] [place] [address] Social History Tobacco Use Types Packs/Day Years [...]
--- OUTSIDE RECORDS SUMMARY | 2025-08-03 12:53 | XMS_ITS | Encounter Summary ---
Author Organization [employer] Address [address] [facility] 7 [place] [address] Care Team Providers Care Manager Meeting Name Role Phone Unavailable Primary Care Provider Unavailabl e Encounter Details Date Type Department Care Team (Latest Contact Info) Description 03/06/2021 Abstract [facility] CONVERSIONS Dental, Provider, DDS Social History Tobacco [...]
--- OUTSIDE RECORDS SUMMARY | 2025-08-03 12:53 | XMS_ITS | Clinical Summary ---
Author Organization [facility] Address [address] [place] [phone] Phone Care Team Providers Care Utilization Management Nurse Name Role Phone Kelly Rizvi MD Primary Care Provid er Allergies Active Allergy Reactions Criticality Noted Date Comments Fluvoxamine 10/21/2024 Paranoia Spiro Analogues 02/05/2023 GI upset, red, itchy blotches Sulfa (Sulfonamide Antibiotics) 02/05/2023 Unknown systemic reaction Adhesive Tape-Silicones 02/05/2023 Itching, rash Medications docusate sodium (COLACE) 50 MG capsule Take 50 mg by mouth 2 (two) times a day as needed for mild constipation. Active topiramate (TOPAMAX) 50 MG tablet Take 1 tablet by mouth 2 (two) times a day. Active glucagon 3 mg/actuation [place] 1 spray by Nasal route as needed. 1 each 08/12/20 Active senna (SENOKOT) 8.6 mg tablet Take 1 tablet by mouth once as needed for constipation. Active levothyroxine (SYNTHROID, LEVOTHROID) 100 MCG tabletIndications: Acquired hypothyroidism TAKE 1 TABLET BY MOUTH EVERY DAY IN THE MORNING 90 tablet 3 10/19/19 25 Active acetone, urine, test (KETONE URINE TEST) Strp Check urine for ketones when blood sugar > 240 two times in a row 50 strip 11 10/19/19 25 Active Additional Information Patient not taking.Reported on 07/20/2025 omeprazole (PRILOSEC) 20 MG capsule Take 1 capsule by mouth as needed. 10/12/19 25 Active hydrOXYzine (ATARAX) 25 MG tablet Take 25 mg by mouth as needed. Active norethindrone (MICRONOR) 0.35 mg tablet Take 1 tablet by mouth daily. Active insulin degludec U-100 (TRESIBA FLEXTOUCH U-100) injection pen Inject 18 Units under the skin nightly at bedtime. 15 mL 3 02/03/20 25 Active BD ULTRA-FINE MINI PEN NEEDLE 31 gauge x 3/16 NdleIndications:Ty pe 1 diabetes mellitus with other specified complication Inject 1 each under the skin 6 (six) times a day. 600 each 03/30/20 25 Active VITAMIN D3 25 mcg (1,000 unit) capsuleIndications :Vitamin D deficiency TAKE 2 CAPSULES BY MOUTH EVERY DAY 180 capsule 3 04/07/20 25 Active INPEN, NOVOLOG OR FIASP, RUTH InPnIndications:Ty pe 1 diabetes mellitus with other specified complication Inject 1 each under the skin 5 (five) times a day. Use with novolog cartridge and inject subcutaneously 0.5-15 Units up to 5x a day before meals/snacks 1 each 04/21/20 25 Active insulin aspart U-100 (NOVOLOG PENFILL U-100 INSULIN) 100 unit/mL CrtgIndications:Ty pe 1 diabetes mellitus with other specified complication MUST BE USED WITH DELIVERY DEVICE. INJECT 1-15 UNITS UNDER THE SKIN BEFORE MEALS AND SNACKS 5X A DAY 30 mL 04/21/20 25 Active Medication-Free Text Magnesium 500 mg- 1 tablet daily Active ascorbic acid, vitamin C, (VITAMIN C) 250 MG tablet Take 250 mg by mouth daily. Takes 3x weekly. Active blood-glucose sensor (FREESTYLE JOSE 3 PLUS SENSOR) DeviIndications:Ty pe 1 diabetes mellitus with other specified complication 1 each by Percutaneous route every 15 (fifteen) days. 6 each 3 06/21/20 25 Active blood-glucose,rece iver,cont (FREESTYLE JOSE 3 READER) MiscIndications:Ty pe 1 diabetes mellitus with hyperglycemia Use as directed to monitor glucose 1 each 07/21/20 25 Active Active Problems Problem Noted Date Diagnosed Date Type 1 diabetes mellitus with hyperglycemia 07/30 Assessment & Plan (07/23/2025 11:04 PM EDT): Blood sugars remain quite erratic with average glucose 232, GMI 8.9%, mean glucose variability 41.7%, time in range only 29%. 5% lows. Last A1c 8.1% in 06/2025. Patient currently using insulin to carb ratio of 1:6, ISF 66 at 6 AM and 64 at 11 cm with target glucose of 140. On Tresiba 16 to 17 units nightly. She has been restricting p.o. intake at breakfast and lunchtime because of fear of hyperglycemia and has a bigger evening meal. - Encouraged to continue to work on the accuracy of carb counting -Distribute carb intake more evenly during the day, try 25 to 30 g of total carbs per breakfast, lunch and evening meal -If blood sugars are trending down within 2 to 3 hours after meals, patient to change her insulin to carb ratio to a higher number like 1:7 or 1:8. - Continue current Tresiba dose -May review sensor download in 3 to 4 weeks Assessment & Plan (06/28/2025 4:59 PM EDT): [...] mail new lab order - Will contact [employer] rep to set up training - Follow-up [...] here. Acquired hypothyroidism 02/05/2023 Assessment & Plan (07/23/2025 10:57 PM EDT): Last TSH low normal at 0.59 by taking 100 mcg levothyroxine daily. Patient had difficulty understanding the TSH normal range and where her TSH falls within the normal range. We discussed that with continued weight loss she may need a lower dose of levothyroxine. -For now keep current dose -Repeat TSH with next A1c in 3 months -Reviewed symptoms of under and over replacement, patient to call if concerned Assessment & Plan (10/21/2024 9:18 AM EST): [...] check TSH today and will communicate through [place] about results. 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 [...] 3:00 PM EDT Office Visit [facility] [address] [place] [address] [place] [address] Suri Max MD Type 1 diabetes mellitus with hyperglycemia (Primary Dx); Acquired hypothyroidism 07/06/2025 Telephone [facility] [address] [place] [address] [facility] 06/28/2025 3:40 PM EDT Telemedicine - audio only [facility] [address] [place] [address] Suri Max MD Type 1 diabetes mellitus with hyperglycemia (Primary Dx); Acquired hypothyroidism 06/28/2025 Telephone [facility] [address] [place] [address] Suri Max MD Appointment 06/22/2025 2:30 PM EDT Telemedicine - audio only [facility] [address] [place] [address] Tricia Rodriguez PA-C Type 1 diabetes mellitus with hyperglycemia (Primary Dx) 06/22/2025 Telephone [facility] [address] [place] [address] Tricia Rodriguez PA-C Call Dropped 06/15/2025 Telephone [facility] [address] [place] [address] Iman Hernandez returning call 05/23/2025 4:30 PM EDT Telemedicine - audio only [facility] [address] [place] [address] Suri Max MD Type 1 diabetes mellitus [...] 10:40 AM EST Office Visit [facility] [address] [place] [address] Suri Max MD [address] [place] [address] [email or web address] Health Maintenance Due Date Last Done Comments [...] EYE EXAM 02/05/2023 URINE MICROALBUMIN/CREATININE RATIO 02/05/2023 INFLUENZA VACCINE (#1) 2025 COVID-19 VACCINE ( season) 2025 BLOOD PRESSURE 01/18/2026 07/20/2025 SMOKING Hx and SMOKELESS TOBACCO SCREENING 06/28/2026 [...] Date/Time Associated Diagnosis Comments COMPREHENSIVE METABOLIC PANEL (CMP) Routine 07/01/2025 12:42 PM EDT Type 1 diabetes mellitus with hyperglycemia TSH WITH REFLEX Routine 07/01/2025 12:42 PM EDT Type 1 diabetes mellitus with hyperglycemia HEMOGLOBIN A1C Routine 07/01/2025 12:42 PM EDT Type 1 diabetes mellitus with hyperglycemia from Last 3 Months Results * Comprehensive metabolic panel (07/01/2025 12:42 PM EDT) Blood us Suri Max MD LAB BLOOD BKR ORDERABLES Final Result [facility] [address] [place] [address] * TSH with reflex (07/01/2025 12:42 PM EDT) Blood Suri Max MD LAB BLOOD BKR ORDERABLES Final Result [address] [address] * Hemoglobin A1c (07/01/2025 12:42 PM EDT) Blood Suri Max MD LAB BLOOD BKR ORDERABLES Final Result [address] [id number] from Last 3 Months Insurance MEDICARE REPLACEMENT MEDICARE REPLACEMENT MEDICARE REPLACEMENT MEDICARE REPLACEMENT MEDICARE REPLACEMENT [facility] CARE MEDICARE REPLACEMENT [facility] MEDICARE REPLACEMENT Care Teams Utilization Management Nurse Relationship Specialty Start Date End Date Kelly Rizvi MD [address] [place] [address] PCP - General Internal Medicine 10/19/24 Additional Source Comments The information contained in this document represents components of the legal health record. It is not the complete legal health record.[facility]
== END 2025-08-03 13:23 | disposition home or self-care (01) ==
LOC: HO.HWSM 10:54
PROVIDERS: PCP Internal Medicine; Visit Provider Advanced Practice Midwife
DX: Z01.419 Encounter for gynecological examination (general) (routine) without abnormal findings (principal); E10.65 Type 1 diabetes mellitus with hyperglycemia; N88.9 Noninflammatory disorder of cervix uteri, unspecified; B37.31 Acute candidiasis of vulva and vagina; Z30.09 Encounter for other general counseling and advice on contraception; Z11.3 Encounter for screening for infections with a predominantly sexual mode of transmission
CPT/HCPCS: 99396; 99459

== ENCOUNTER → 2025-08-03 12:58 | Outpatient (BNV) | payer OTHER, SELFPAY | PROVIDERS: Absent Provider Internal Medicine; PCP Internal Medicine; Visit Provider Radiology Diagnostic Radiology | DX: M54.50 Low back pain, unspecified (principal); M16.11 Unilateral primary osteoarthritis, right hip; M75.121 Complete rotator cuff tear or rupture of right shoulder, not specified as traumatic; M19.111 Post-traumatic osteoarthritis, right shoulder; M25.561 Pain in right knee | CPT/HCPCS: 72100; 73030; 73502; 73560 ==

== ENCOUNTER 2025-08-03 14:45 | Outpatient (REF) | payer OTHER, SELFPAY | END 2025-08-03 14:46 | disposition home or self-care (01) | LOC: HO.LNP 14:45 | PROVIDERS: Visit Provider Advanced Practice Midwife | DX: Z13.89 Encounter for screening for other disorder (principal) | CPT/HCPCS: 87626; 88175 ==

== ENCOUNTER 2025-08-03 14:45 | Outpatient (REF) | payer OTHER, SELFPAY ==
[2025-08-04 13:40] LABS: Bacterial Vaginosis PCR POSITIVE (Negative); Candida Group PCR NOT DETECTED (Not Detect); Candida glab krusei PCR NOT DETECTED (Not Detect); Trichomonas vaginalis PCR NOT DETECTED (Not Detect)
[2025-08-04 14:32] LABS: CT PCR NOT DETECTED (Not Detect.); NG PCR NOT DETECTED (Not Detect.)
== END 2025-08-03 14:46 | disposition home or self-care (01) ==
LOC: HO.LAB 14:45
PROVIDERS: Visit Provider Advanced Practice Midwife
DX: Z13.89 Encounter for screening for other disorder (principal)
CPT/HCPCS: 81515; 87491; 87591

== ENCOUNTER 2025-09-06 10:49 | Outpatient (REF) | payer OTHER, SELFPAY | END 2025-09-06 10:50 | disposition home or self-care (01) | LOC: HO.LNP 10:49 | PROVIDERS: PCP Internal Medicine; Visit Provider Obstetrics & Gynecology | DX: C44.90 Unspecified malignant neoplasm of skin, unspecified (principal); B97.7 Papillomavirus as the cause of diseases classified elsewhere; Z32.02 Encounter for pregnancy test, result negative | CPT/HCPCS: 88305 ==

== ENCOUNTER 2025-09-06 10:49 | Outpatient (AMB) | payer OTHER, SELFPAY ==
--- NOTE | 2025-09-06 10:53 | MHC.OFFVIS ---
Vital Signs 09/06/25 11:04 Height 5 ft 5 in Weight 125 lb BMI 20.8 BP 112/66 Intake Visit Reasons: colposcopy District Traffic Chief Required: No Information Interpreted: non-clinical & clinical Utility System Operator: Utility System Operator Present (Ame ALFARO) Accompanied by: Self / Same As Patient Allergies lithium ([place]) Allergy (Unknown, Verified 09/06/25 11:05) VOMITTING/DIARRHEA silver (From TEGADERM AG MESH) Allergy (Unknown, Verified 09/06/25 11:05) ITCHY RASH Sulfa (Sulfonamide Antibiotics) Allergy (Unknown, Verified 09/06/25 11:05) RASH,HIVES sulfamethoxazole Allergy (Unknown, Verified 09/06/25 11:05) rash [place] Carbonate Allergy (Unknown, Uncoded 09/06/25 11:05) rash Tegaderm Allergy (Unknown, Uncoded 09/06/25 11:05) Unknown tegaderm Allergy (Unknown, Uncoded 09/06/25 11:05) Unknown Is last menstrual period known: Yes Last menstrual period: 08/03/25 HPI Comments Details: Presenting for HPV positive negative Pap smear, [facility] 16/18 [facility] Medical History Diabetes Abnormality of cervix Anxiety Hypothyroidism Surgical History History of rotator cuff surgery Family History Mother Breast cancer, Onset Age: 38 Osteoporosis Social History Housing: Apartment Alcohol intake: current Alcohol intake frequency: holidays/special occasions only Patient Tobacco Use Status: Former Tobacco user Tobacco use type: Cigarette Years Smoked: 10 years e-Cigarette/Vaping Use: Never Used Second Hand Smoke Exposure: No service: No Current occupational status: disabled Cognitive needs: No Hearing needs: No Vision needs: Yes Female Reproductive History Menstrual Age of Menarche: 13 Date of last menstrual period: 08/03/25 control method: pills Physical Exam Vital Signs: Last Vital Signs BP 112/66 09/06/25 11:04 BMI result Body Mass Index 20.8 Office Procedures Colposcopy Colposcopy: Pre-Procedure Counseling: Before beginning the procedure, I conducted comprehensive counseling with the patient. We thoroughly discussed the procedure itself, including its details, alternatives, and all associated risks. This included but not limited to the following complications such as bleeding, infection, and injury to the vagina, bladder, and vessels, as well as the potential need for transfusion with all its associated risks. Subsequently, the patient sign the consent. Pap smear result: Negative Pap/HPV positive, HPV 16/18 negative Urine test in office = Negative Procedure: During the procedure, the following steps were performed: A speculum was inserted, and acetic acid was applied. Colposcopy was conducted, allowing visualization of the transformation zone. Acetowhite lesions were identified at the 2+ 3+5 +9 + 12 o'clock position. Cervical biopsies were obtained from the 2+ 3+5 +9 + 12 o'clock position, followed by an endocervical curettage (ECC). Vaginoscopy of the upper vagina revealed no evidence of aceto-white lesions. Hemostasis was achieved using Monsel solution, and the patient tolerated the procedure well. Post-Procedure Instructions: The patient was advised to promptly contact the office or the after hours answering service or go to the emergency room if experiencing a temperature exceeding 100.4?F, abdominal pain, nausea/vomiting, or bleeding. Additionally, the patient was instructed to abstain from vaginal intercourse and bathtub use. The patient confirmed understanding of these instructions. Discharge Instructions: The patient was instructed to schedule a follow-up appointment in 2 weeks for further evaluation and management. Please note that this note was generated using a voice recognition program, and errors may have occurred during breading machine tender. 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 the false positive/negative rate of a Pap smear as a screening test in detecting cervical cancer and the indication for a diagnostic test -colposcopy, biopsy, endocervical curettage. The patient verbalized understanding and agreed with the plan, all questions answered. 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
[2025-09-06 11:04] VITALS: BP 112/66; BMI 20.8
== END 2025-09-06 11:27 | disposition home or self-care (01) ==
LOC: HO.HWS 10:50
PROVIDERS: PCP Internal Medicine; Visit Provider Obstetrics & Gynecology
DX: C44.90 Unspecified malignant neoplasm of skin, unspecified (principal); B97.7 Papillomavirus as the cause of diseases classified elsewhere; Z32.02 Encounter for pregnancy test, result negative
CPT/HCPCS: 57454

== ENCOUNTER 2025-09-21 08:01 | Outpatient (AMB) | payer OTHER, SELFPAY ==
--- NOTE | 2025-09-21 08:01 | A.OFFVIS_ITS ---
Intake Visit Reasons: Colpo Results Allergies lithium ([place]) Allergy (Unknown, Verified 09/06/25 11:05) VOMITTING/DIARRHEA silver (From TEGADERM AG MESH) Allergy (Unknown, Verified 09/06/25 11:05) ITCHY RASH Sulfa (Sulfonamide Antibiotics) Allergy (Unknown, Verified 09/06/25 11:05) RASH,HIVES sulfamethoxazole Allergy (Unknown, Verified 09/06/25 11:05) rash [place] Carbonate Allergy (Unknown, Uncoded 09/06/25 11:05) rash Tegaderm Allergy (Unknown, Uncoded 09/06/25 11:05) Unknown tegaderm Allergy (Unknown, Uncoded 09/06/25 11:05) Unknown HPI Comments Details: The patient scheduled a telehealth visit post colpo for follow-up. The patient is doing well with no complaints. The pathology showed the following: A. Endocervix, curettage: Superficial fragments of inflamed cervical transformation zone mucosa, endocervical mucosa and squamous epithelium with reactive changes. B. Cervix, 2 o'clock, biopsy: Mildly inflamed cervical transformation zone mucosa with reactive changes. C. Cervix, 3 o'clock, biopsy: Mildly inflamed endocervical and squamous mucosa with reactive changes. D. Cervix, 5 o'clock, biopsy: Mildly inflamed cervical transformation zone mucosa with reactive changes. E. Cervix, 9 o'clock, biopsy: Mildly inflamed cervical transformation zone mucosa with reactive changes. F. Cervix, 12 o'clock, biopsy: - Low grade squamous intraepithelial lesion (LIZZY 1). - Endocervical epithelium within normal limits PFSH Medical History Diabetes Abnormality of cervix Anxiety Hypothyroidism Surgical History History of rotator cuff surgery Family History Mother Breast cancer, Onset Age: 38 Osteoporosis Social History Housing: Apartment Alcohol intake: current Alcohol intake frequency: holidays/special occasions only Patient Tobacco Use Status: Former Tobacco user Tobacco use type: Cigarette Years Smoked: 10 years e-Cigarette/Vaping Use: Never Used Second Hand Smoke Exposure: No service: No Current occupational status: disabled Cognitive needs: No Hearing needs: No Vision needs: Yes Female Reproductive History Menstrual Age of Menarche: 13 Review of Systems Const All systems reviewed & are unremarkable except as noted in HPI and below Reports as per HPI and Reports no additional complaints GI Reports no additional complaints Reports no additional complaints Telehealth Telehealth [facility] Location of provider rendering services: practice address Location of patient: address on file Patient Identification confirmed using: Name, : Yes Telehealth method: video Patient verbally consented to treatment: Yes Patient verbally consented to billing insurance company: Yes Patient informed of any privacy concerns related to visit: Yes Minutes spent on Phone/Video with Pt.: 6 Assessment & Plan Assessment & Plan (1) Dysplasia of cervix, low grade (LIZZY 1): Code(s): N87.0 - Mild cervical dysplasia Category: Medical Plan: Discussed with the patient the pathology results of the colposcopy biopsies & endocervical curettage ( mild dysplasia-LIZZY 1). Discussed with the patient the sensitivity specificity, positive and negative predictive value in detecting cervical cancer in addition discussed the regression, persistence and progression rates. Recommended co-testing in 12 months, if cytology and or HPV are abnormal will proceed was colposcopy biopsy and endocervical curettage. Instructions given to the patient to schedule a co test appointment in 1 year. All questions answered the patient verbalized understanding. I spent a total of 20 minutes reviewing the chart, talking to the patient via video and documenting in the medical record. Coding Level of Care Code Tele Est Pt Level 3 (53076) Diagnoses Dysplasia of cervix, low grade (LIZZY 1) N87.0
--- OUTSIDE RECORDS SUMMARY | 2025-09-21 08:04 | XMS_ITS | Encounter Summary ---
Author Organization [employer] Address [address] [place] [address] Care Team Providers Care Terminal System Operator Name Role Phone Unavailable Primary Care Provider Unavailabl e Encounter Details Date Type Department Care Team (Late st Contact Info) Description 01/08/2023 Abstract [facility] ADULT [facility] [address] [place] [address] Radha Marcelino, DDS [address] [place] [address] Social History Tobacco Use Types Packs/Day Years [...]
--- OUTSIDE RECORDS SUMMARY | 2025-09-21 08:04 | XMS_ITS | Data Portability ---
Author Organization [facility] [employer] [employer] [facility] Address [address] [place] [address] Care Team Providers Care Sec Reporting Consultant Name Role Phone HIM CCA OTHER Assessment Encounter Date Assessment Date Assessment LastModified by Organization Details LastModified Time 05/23/2025 05/23/2025 50 yo F with DM1 (last a1c 9.8%) and recurrent vaginal candidiasis calling w 4 days of vaginal itching and white clumpy discharge. No malodor. Typically has a rx for diflucan w/refills but her NUTRITIONAL CHEMIST is on medical leave currently and the practice told her to come in for a vaginosis swab in order to get the rx. Pt reports that she has agoraphobia and no transportation for the next 2 weeks. VS wnl. Given sxs c/w vulvovaginal yeast infection, will send rx for diflucan 150mg x 1 now. FUP w PCP, NUTRITIONAL CHEMIST, and endo for ongoing BG control. [email or web address] Not available 05/23/2025 20:06:04 Plan of Treatment Reminders Order Date Submit Date Provider Last Modified By Organization Details Last Modified Time Details Appointments None recorded. Lab unlisted lab - urinalysis w/reflex culture 2021 022 [facility] (Centralized Electronic Ordering - All Locations), Patient Can Go To The Location Of Their Choice, [address] 15:18:14 Referral None recorded. Procedures None recorded. Surgeries None recorded. Imaging None recorded. Medication Orders fluconazole 150 mg tablet 2024 025 [id number], [address], [place], [address], 5 20:06:06 nitrofurant oin monohydrate /macrocryst als 100 mg capsule 2021 022 [id number], [address] [place], [address], 2 10:43:10 Pyridium 100 mg tablet 2021 022 [id number], [address] [place], [address], 10:31:31 Patient TargetsNo targets recorded. Patient InstructionsNo instructions recorded. Reason for Referral None Reported. Medical Equipment None Reported. Allergies Allergen ID Allergen Name Allergen Category Reaction Reaction Severity Criticality Documentation Date Start Date Code Code System Note Provider Name and Address Organization Details Recorded Time 65523 Substance with sulfonami de structure and antibacte rial mechanism of action (substanc e) medicatio n Not available Not available Not available 05/23/2025 62159 8003 SNOMED Not Available [facility] 15:11:30 24585 lithium Not available Not available Not available Not available 05/23/2025 6448 RxNorm Not Available [facility] 15:11:30 33299 adhesive tape environme nt,medica tion Not available [...] Recorded Heart rate Respiratory rate Oxygen saturation Body temperature Systolic And Diastolic Provider Name and Address Organization Details Last Updated DateTime 2 100 /min 16 /min 100 % 98.4 [degF] 131/83 mm[Hg] Keneytta Bae MD [address] [facility],[address], [place], [address], [place] - [employer] [facility] 10:28:13 Date Recorded Body height Oxygen saturation Respiratory rate Body temperature Heart rate Body weight Systolic And Diastolic Provider Name and Address Organization Details Last Updated DateTime 165.1 cm 98 % 19 /min 97.5 [degF] 81 /min 19176 g 135/82 mm[Hg] Not Available [facility] 19:59:14 Social History None recorded. Functional Status [...] Codes Diagnosis Note 229 Kenyetta Bae MD [address] [address] 11/25/2021 09:35:38 05/30/2022 15:05:25 Acute urinary tract infection [id number] N39.0 Sx c/w uncompilca gavin UTI w/o pyelonephr itis. Urine dip not able to be read 2/2 color change from OTC med (uristat). Will empiricall y treat w/ Macrobid and sent UA with reflex cx.Red flag symptoms reviewed, pt instructed to call 911 if condition worsens or new symptoms develop, pt expressed understand ing. [id number] YADY FIGUEROA MD [facility] [address] [address] 05/23/2025 19:59:10 05/24/2025 10:22:45 Candidiasis of vagina 20071332 B37.31 [id number] Health Concerns Section Related Observation LastModified by Organization Detai ls LastModified Time None Recorded Concern Status LastModified by Organization Details LastModified Time None Recorded Advance Directives Directive None Recorded Payers Insurance Date Sequence Insurance Name Policy Number Policy Prasad Covered Member ID Prasad Member ID Guarantor Name 11/26/[address] [facility] - DOS PRIOR TO 2022 - DUAL ELIGIBLE (MEDICARE REPLACEMENT/ADV ANTAGE - HMO) Sunitha Travis [id number] Sunitha Travis 05/23/[address] [facility] - DOS ON OR AFTER 2022 - DUAL ELIGIBLE - [facility] OPTIONS AND ONE CARE (MEDICARE REPLACEMENT/ADV ANTAGE - HMO) Sunitha Colonrien [id number] Sunitha Morales Angy Notes Date Note Type Note Provider Name and Address Organization Details Recorded Time 11/25/2021 text/html Per request: 46 yo F calls in with c/o UTI symptoms x2 days. Member with urinary frequency and burning with urination, denies abd pain, denies fevers. Member states she took an OTC UTI test and it was positive. Per business risk analyst hx:Dispatched to a 46 y.o female with [...] sent to pharmacy for patient, patient to milk pickup driver today and start first dose. red flags discussed with the patient and patient advised should any red flags arise to be seen at the emergency room. cleared without incident. Kenyetta Bae MD [address] [facility],[address], [place], [address], [facility] [employer] 11/25/2021 11:31:58 05/23/2025 text/html CRC Nurse Triage [...] .................... .................... .................... .................... .................... .................... . Tafe Registrar Note From Lynne Lund: Pt chief complaint [...] fully caox4 with a GCS of 15. [facility] Yady Figueroa consulted. [facility] provider has [facility] speak with pt in regards to requested script. After appropriate questioning [facility] provides prescription to pt via her local pharmacy. Pt told to contact her local pcp for follow up as needed. Pt also educated on red flag S&S and told to contact emergency services if any present. .................... .................... .................... .................... .................... .................... .................... . [facility] Consulted: Yady Figueroa .................... .................... .................... .................... .................... .................... .................... . Disposition: Fulfilled YADY FIGUEROA MD [address] [facility],[address], [place], [address], [facility] 05/23/2025 21:14:29 OBGyn Episode No OBEpisode recorded.
--- OUTSIDE RECORDS SUMMARY | 2025-09-21 08:04 | XMS_ITS | Encounter Summary ---
Author Organization [employer] Address [address] [place] [address] Care Team Providers Care Trial Judge Name Role Phone Unavailable Primary Care Provider [...] be without them. Email was sent to [facility] regarding patient. She would also like to speak to management regarding her case. Encounter Details Date Type Department Care Team (Late st Contact Info) Description 11/20/2022 Telephone [facility] ADULT DENTAL [address] [place], [place] [phone] Radha Marcelino DDS [address] [place], [place] [phone] Appointment (Patient had appt scheduled for 11/22. It was supposed to be for new partials but approval has not come in as of yet . She wants to have to ones she currently has repaired in the meantime. But she had to cancel because she has an interview on Friday and doesn't want to be without them. Email was sent to [facility] regarding patient. She would also like [...] be without them. Email was sent to [facility] regarding patient. She would also like to speak to management regarding her case. documented in this encounter Plan of Treatment Not on file documented as of this encounter Visit Diagnoses Not on filedocumented in this encounter
--- OUTSIDE RECORDS SUMMARY | 2025-09-21 08:04 | XMS_ITS | Encounter Summary ---
Author Organization [employer] Address [address] [facility] [address] [place] [address] Care Team Providers Care Power Digger Operator Name Role Phone Unavailable Primary Care Provider Unavailabl e Encounter Details Date Type Department Care Team (Latest Contact Info) Description 03/06/2021 Abstract [facility] CONVERSIONS Dental, Provider, DDS Social History [...]
--- OUTSIDE RECORDS SUMMARY | 2025-09-21 08:04 | XMS_ITS | Encounter Summary ---
Author Organization [employer] Address [address] [facility] [address] [place] [address] Care Team Providers Care Fullerette Name Role Phone Unavailable Primary Care Provider Unavailabl e Encounter Details Date Type Department Care Team (Late st Contact Info) Description 01/07/2023 Abstract [facility] ADULT DENTAL [address] [place] [address] Radha Marcelino, DDS [address] [place] [address] Social History Tobacco Use Types Packs/Day Years [...]
--- OUTSIDE RECORDS SUMMARY | 2025-09-21 08:04 | XMS_ITS | Clinical Summary ---
Author Organization [employer] Address [address] [place] [address] [address] [place] [address] Care Team Providers Care Division Head Name Role Phone Unavailable Primary Care Provider Unavailabl e Allergies Active Allergy Reactions Criticality Noted Date Comments Acetaminophen 07/07/2018 Lamotrigine 09/17/2010 Other reaction(s): vomiting: diarrhea Latex 05/07/2013 Leota 09/17/2010 Other reaction(s): rash, rash GI upset, red, itchy blotches Oxycodone 07/07/2018 Sulfa Antibiotics 09/17/2010 Other reaction(s): rash Unknown systemic reaction Wound Dressing Adhesive 02/05/2023 Itching, rash Medications insulin pen [facility] 31G x [facility] Ultra-Fine Mini Pen Needle 31 gauge x 3/16 Active glucose blood test strip OneTouch Verio test strips TO TEST BLOOD GLUCOSE 7 TIMES PER DAY 30 DAYS Active Continuous Blood Gluc Sensor (FreeStyle Jose 2 Sensor) [facility] FreeStyle Jose 2 Sensor kit CHANGE EVERY [...] Blood Gluc Sensor (FreeStyle Jose 2 Sensor) [facility] APPLY SENSOR TO SKIN EVERY 14 DAYS [...] MINI PEN NEEDLES 31G X 5 MM [facility] USE TO INJECT 7 TIMES PER DAY [...] check TSH today and will communicate through [facility] about results. 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
--- OUTSIDE RECORDS SUMMARY | 2025-09-21 08:04 | XMS_ITS | Encounter Summary ---
Author Organization [employer] Address [address] [facility] [address] [place] [address] Care Team Providers Care Hardscape Foreman Name Role Phone Unavailable Primary Care Provider Unavailabl e Reason for Visit * Reason Onset Date Comments Prior Authorization 10/30/2022 Patient call ed in Requesting if PA Has been Received pls [employer]ise AV Encounter Details Date Type Department Care Team ([facility] st Contact Info) Description 10/30/[address] [facility] ADULT DENTAL [address] [place] [address] Radha Marcelino, DDS [address] [place] [address] Prior Authorization (Patient called in Requesting if [...]
--- OUTSIDE RECORDS SUMMARY | 2025-09-21 08:04 | XMS_ITS | Encounter Summary ---
Author Organization [facility] Address [address] [facility] [address] [place] [address] Phone Care Team Providers Care Bearing Maker Name Role Phone Kelly Rizvi MD Primary Care Provid er Reason for Visit * Reason Onset Date Comments Appointment 06/28/2025 Encounter Details Date Type Department Care Team ([facility] st Contact Info) Description 06/28/2025 Telephone [facility] End[facility] [address] [place] [phone] Suri Max MD [address] [place] [phone] [email or web address] Appointment Social History Tobacco Use Types Packs/Day [...] today s appt was booked. Central Support Editorial Specialist (Please do not reply to this user; this inbox is not monitored.) Thank you. documented in this encounter Plan of Treatment Upcoming Encounters Date Type Department Care Team (Late st Contact Info) Description 11/08/2025 10:40 AM EST Office Visit [facility] [address] [place] [phone] Suri Max MD [address] [place] [address] [email or web address] documented as of this encounter Visit Diagnoses Not on filedocumented in this encounter Care Teams Bearing Maker Relationship Specialty Start Date End Date Kelly Rizvi MD [address] [place] [address] PCP - General Internal Medicine 10/19/24 documented as of this encounter Additional Source Comments The information contained in this document represents components of the legal health record. It is not the complete legal health record.[facility]
--- OUTSIDE RECORDS SUMMARY | 2025-09-21 08:04 | XMS_ITS | Encounter Summary ---
Author Organization [employer] Address [address] [facility] 7 [place] [address] Care Team Providers Care Bagman/Woman Name Role Phone Unavailable Primary Care Provider Unavailabl e Encounter Details Date Type Department Care Team (Latest Contact Info) Description 01/06/2019 Abstract [facility] CONVERSIONS Dental, Provider, DDS Social History [...]
--- OUTSIDE RECORDS SUMMARY | 2025-09-21 08:04 | XMS_ITS | Encounter Summary ---
Author Organization [employer] Address [address] [facility] 7 [place] [address] Care Team Providers Care Top Collar Maker Name Role Phone Unavailable Primary Care Provider Unavailabl e Encounter Details Date Type Department Care Team (Latest Contact Info) Description 04/22/2022 Abstract [facility] CONVERSIONS Dental, Provider, DDS Social [...]
--- OUTSIDE RECORDS SUMMARY | 2025-09-21 08:05 | XMS_ITS | Clinical Summary ---
Author Organization [facility] Address [address] [place] [phone] Phone Care Team Providers Care Supervisor [employer] Name Role Phone Kelly Rizvi MD Primary Care Provid er Allergies Active Allergy Reactions Criticality Noted Date Comments Fluvoxamine 10/21/2024 Paranoia [place] Analogues 02/05/2023 GI upset, red, itchy blotches Sulfa (Sulfonamide Antibiotics) 02/05/2023 Unknown systemic reaction Adhesive Tape-Silicones 02/05/2023 Itching, rash Medications docusate sodium (COLACE) 50 MG capsule Take 50 mg by mouth 2 (two) times a day as needed for mild constipation. Active topiramate (TOPAMAX) 50 MG tablet Take 1 tablet by mouth 2 (two) times a day. Active glucagon 3 mg/actuation [place] 1 spray by Nasal route as needed. 1 each 08/12/20 Active senna (SENOKOT) 8.6 mg tablet Take 1 tablet by mouth once as needed for constipation. Active levothyroxine (SYNTHROID, LEVOTHROID) 100 MCG tabletIndications :Acquired hypothyroidism TAKE 1 TABLET BY MOUTH EVERY [...] bedtime. 15 mL 3 02/03/20 25 Active VITAMIN D3 25 mcg (1,000 unit) capsuleIndication s:Vitamin D deficiency TAKE 2 CAPSULES BY MOUTH EVERY DAY 180 capsule 3 04/07/20 25 Active insulin aspart U-100 (NOVOLOG PENFILL U-100 INSULIN) 100 unit/mL CrtgIndications:T ype 1 diabetes mellitus with other specified complication MUST BE USED WITH DELIVERY DEVICE. INJECT 1-15 UNITS UNDER THE SKIN BEFORE MEALS AND SNACKS 5X A DAY 30 mL 3 04/21/20 25 Active Medication-Free Text Magnesium 500 mg- 1 tablet daily Active ascorbic acid, vitamin C, (VITAMIN C) 250 MG tablet Take 250 mg by mouth daily. Takes 3x weekly. Active blood-glucose sensor (FREESTYLE JOSE 3 PLUS SENSOR) DeviIndications:T ype 1 diabetes mellitus with other specified complication 1 each by Percutaneous route every 15 (fifteen) days. 6 each 3 06/21/20 25 Active blood-glucose,rec eiver,cont (FREESTYLE JOSE 3 READER) MiscIndications:T ype 1 diabetes mellitus with hyperglycemia Use as directed to monitor glucose 1 each 07/21/20 25 Active INPEN, NOVOLOG OR FIASP, RUTH InPnIndications:T ype 1 diabetes mellitus with other specified complication Inject 1 each under the skin 5 (five) times a day. Use with novolog cartridge and inject subcutaneously 0.5-15 Units up to 5x a day before meals/snacks 1 each 1 08/15/20 25 Active insulin pen needles, disposable, (BD ULTRA-FINE MINI PEN NEEDLE) 31 gauge x 3/16 NdleIndications:T ype 1 diabetes mellitus with other specified complication Inject 1 each under the skin 6 (six) times a day. 600 each 3 09/16/20 25 Active BD ULTRA-FINE MINI PEN NEEDLE 31 gauge x 3/16 NdleIndications:T ype 1 diabetes mellitus with other specified complication Inject 1 each under the skin 6 (six) times a day. 600 each 3 03/30/20 25 025 Disconti nued(Reo rder) Active Problems Problem Noted Date Diagnosed Date [...] mail new lab order - Will contact [employer] rep to set up training - Follow-up [...] check TSH today and will communicate through [facility] about results. 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 [...] Description 07/20/2025 3:00 PM EDT Office Visit [facility] Endocrinology [address] [place] [address] Suri Max MD Type 1 diabetes mellitus with hyperglycemia (Primary Dx); Acquired hypothyroidism 07/06/2025 Telephone [facility] [address] [place] [address] [facility] 06/28/2025 3:40 PM EDT Telemedicine - audio only [facility] Endocr[facility]ology [address] [place] [address] Suri Mxa MD Type 1 diabetes mellitus with hyperglycemia (Primary Dx); Acquired hypothyroidism 06/28/2025 Telephone [facility] [address] [place] [address] [place] [address] Suri Max MD Appointment 06/22/2025 2:30 PM EDT Telemedicine - audio only [facility] [address] [place] [address] Tricia Rodriguez PA-C Type 1 diabetes mellitus with hyperglycemia (Primary Dx) 06/22/2025 Telephone [facility] [address] [place] [address] [place] [address] Tricia Rodriguez PA-C Call Dropped from Last 3 Months Social History Tobacco [...] Description 11/08/2025 10:40 AM EST Office Visit [facility] [address] [place] [address] Suri Max MD [address] [place] [address] Health Maintenance Due Date Last Done Comments [...] MD LAB BLOOD BKR ORDERABLES Final Result [address] [id number] * TSH with reflex (07/01/2025 12:42 PM EDT) Blood Suri Max MD LAB BLOOD BKR ORDERABLES Final Result [address] [id number] * Hemoglobin A1c (07/01/2025 12:42 PM EDT) Blood us Suri Max MD LAB BLOOD BKR ORDERABLES Final Result Performing Organization Address City/[facility]/ZIP Co de Phone Number [address] [address] from Last 3 Months Insurance CARE MEDICARE REPLACEMENT CARE MEDICARE REPLACEMENT MEDICARE REPLACEMENT MEDICARE REPLACEMENT CARE MEDICARE [place] [address] [place] [address] MEDICARE REPLACEMENT [facility] MEDICARE REPLACEMENT Care Teams Supervisor [employer] Relationship Specialty Start Date End Date Kelly Rizvi MD [address] [place] [address] PCP - General Internal Medicine 10/19/24 Additional Source Comments The information contained in this document represents components of the legal health record. It is not the complete legal health record.[facility]
--- OUTSIDE RECORDS SUMMARY | 2025-09-21 08:05 | XMS_ITS | Patient Health Record ---
Author Organization [facility] Address [address] [place] [address] Care Team Providers Care Tea Bag Packer Name Role Phone Yaa Tran Primary Care Provider Unavailab ivette DANUTA Reilly Unavailable [phone] Allergies Allergen (clinical drug ingredient) Drug/Non Drug Allergy documented on EMR Reaction Allergy Type Onset Date Status TEGADERM /PAPER TAPE (uncoded) itchy skin Allergy Active lithium [place] Hives Drug Allergy Active Substance with sulfonamide structure and antibacterial mechanism of action (substance) Sulfa Antibiotics Unknown Drug Allergy Active Reason For Referral No Information Medications Medication SIG (Take, Route, Frequency, Duration) Notes Start Date End Date Status OneTouch Verio w/Device Kit as directed Active FreeStyle Jose 3 Sensor - Miscellaneous as directed applied to skin Change every 14 days; Duration: 90 days 10/17/2022 Active Vitamin D3 25 MCG (1000 UT) Capsule 1 capsule orally once a day; Duration: 90 days Active OneTouch Verio - Strip as directed In Vitro Active BD Pen Needle Mini U/F 31G X 5 MM Miscellaneous USE TO INJECT 7 TIMES PER DAY FOR 90 DAYS Active DocQLace 100 MG Capsule 1 cap(s) orally twice a day/prn Active Levothyroxine Sodium 88 MCG Tablet 1.5 tabs 1 day and 1 tab 6 days a week Orally once a day; Duration: 90 days Active Senna 8.6 MG Tablet 2 tab(s) orally Once a day prn Active Topamax 50 MG Tablet 1 tab orally Once a day Active Probiotic - Tablet Delayed Release 1 tab Orally once a day Acti ve Lantus SoloStar 100 UNIT/ML Solution Pen-injector INJECT 16 TO 18 UNITS Subcutaneous once a day at bedtime Active OneTouch Delica Lancets 33G - Miscellaneous as directed Active Glucagon (rDNA) 1 MG Kit 1 mg subcutaneously prn 0 04/19/2016 Active NovoLOG FlexPen 100 UNIT/ML Solution Pen-injector 4-12 units, or as directed Subcutaneous tid AC & prn high glucose levels Active hydrOXYzine HCl 25 MG Tablet 2 caps orally Once a day prn Active Omeprazole 10 MG Capsule Delayed Release 1 cap(s) orally once a day prn Active Social History Tobacco Use: Social History Observation Description Date Details (start date - stop date) Former Smoker NA - NA Social History Tobacco Use: Social Info Question Answer Notes Smoking Are you a: former smoker Additional Details Category Social Info Options Details General Occupation: Unemployed. was working in [employer], [place] asbestos exposure: no Past year's travels: none 2021 alcohol use: yes occasionally drug use: no Hobbies/Exercise habits: walking occasionally, movies, reading Coffee/Tea/Soda: yes 1, Coffee daily , , Tea, occasionally Marital Status single experience no Living with alone Pets 1 cat smokers in household no pt former s moker Problems Problem Type SNOMED Code ICD Code Onset Dates Problem Status W/U Status Risk Notes Problem Hypothyroidism (80896792) Hypothyroidism (acquired) (244.9) Active confirmed Problem Diabetes type 1 with neurological disorder (488432907) Diabetes mellitus type 1 with neurological manifestations, uncontrolled (250.63) Active confirmed Problem Acne frontalis (46693775) Acne frontalis (706.0) Active confirmed Problem Neurological disorder associated with type I diabetes mellitus (405565732) Diabetes mellitus type 1 w/neuro manifestations, not stated as uncontrolled (250.61) Active confirmed Low Problem Vitamin D deficiency (42607095) Vitamin D deficiency (E55.9) Active confirmed Problem Acquired hypothyroidism (624680732) Acquired hypothyroidism (E03.9) Active confirmed Problem Alopecia (62279307) Hair loss (L65.9) Active confirmed Problem Neurological disorder associated with type I diabetes mellitus (245896536) 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) Active confirmed Problem Body mass index less than 20 (896450728) BMI less than 19,adult (Z68.1) Active confirmed Problem Localized obesity (383483887) Lipohypertrophy (E65) Active confirmed Problem Blood chemistry abnormal (481159181) 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 METABOLIC 11/22/2016 Urine Microalbumin(Creat/MALB Ratio) TSH WITH REFLEX TO FT4 11/22/2016 Urine Microalbumin(Creat/MALB Ratio) 03/2017 GLYCOHEMOGLOBIN (HBA1C) 02/21/2020 25 [place] Vitamin D 02/21/2020 INSULIN ANTIBODY 02/21/2020 LIPID PROFILE 07/24/2020 GLYCOHEMOGLOBIN (HBA1C) 07/24/2020 COMP. METABOLIC 07/24/2020 TSH WITH REFLEX TO FT4 08/17/2022 CBC W/ AUTOMATED DIFF 10/01/2022 Insurance Providers Payer Name Payer Address Payer Phone Subscriber Number Group Number Insured Name Patient Relationship to Insured Coverage Start Date Coverage End Date [facility] [address] [place] [phone] [id number] MITESH NEVAREZ Self - patient is the insured 7 Medical (General) History Medical History History ICD Code type 1 diabetes, Dx 1987 Hypoglycemia unawareness-improved. using Jose CGM since 07/2020 Retinopathy Anxiety-Dr A/therapist q week at [facility] Hypothyroidism, Dx 1987 PTSD Surgical History Surgery Date(Month/Year) Surgery on right arm rotator cuff 06/03/20 18 Hospitalization History Reason Date(Month/Year) Severe hypoglycemia 03/08
--- OUTSIDE RECORDS SUMMARY | 2025-09-21 08:05 | XMS_ITS | Patient Health Record ---
Author Organization [facility] Address [address] [place] [address] Care Team Providers Care Service Liaison Representative Name Role Phone ELMIRA LAI, KALLI Primary Care Provider Nicholas Estrada [phone] Allergies Allergen (clinical drug ingredient) Drug/Non Drug Allergy documented on EMR Reaction Allergy Type Onset Date Status tagaderm tape (uncoded) Unknown Allergy Active Sulfa Unknown Drug Allergy Active lithium citrate [place] Unknown Drug Allergy A ctive Reason For Referral No Information Medications Medication SIG (Take, Route, Frequency, Duration) Notes Start Date End Date Status Probiotic once a day Active Vitamin D Active Topiramate Active Senna 2 tablets at bedtime as needed Active Docusate Sodium 100 MG Capsule 1 capsule as needed Orally BID/as needed Active Lantus Active Levothyroxine Sodium Active NovoLOG Active Omeprazole 20 MG Capsule Delayed Release TAKE 1 CAPSULE BY MOUTH EVERY DAY; Duration: 90 Active Immunizations Vaccine Route Administration Date Status Comme nts Influenza Unknown 10/16/2022 Refused Social History Tobacco Use: Social History Observation Description Date Details (start date - stop date) Former Smoker NA - NA Social History Drugs/Alcohol: Social Info Question Answer Notes Alcohol Screen Did you have a drink containing alcohol in the past year? Yes How often did you have a drink containing alcohol in the past year? Monthly or less (1 point) How many drinks did you have on a typical day when you were drinking in the past year? 1 or 2 drinks (0 point) How often did you have 6 or more drinks on one occasion in the past year? Never (0 point) Points 1 Interpretation Negative Tobacco Use: Social Info Question Answer Notes Tobacco Use/Smoking Patient is a former smoker How long has it been since you last smoked? > 10 years Additional Details Category Social Info Options Details Miscellaneous: Marital status: Single Occupation: Disabled Section Notes: Nonsmoker; no sig alcohol Nonsmoker; no sig alcohol Problems Problem Type SNOMED Code ICD Code Onset Dates Problem Status W/U Status Risk Notes Problem Colon cancer screening (939005680) Colon cancer screening (Z12.11) Active confirmed Problem Gastroesophageal reflux disease (088883698) Gastroesophageal reflux disease, esophagitis presence not specified (K21.9) Active confirmed Problem Constipation (84958325) Constipation, unspecified constipation type (K59.00) Active confirmed Problem Gastroesophageal reflux disease (352109029) Gastroesophageal reflux disease, unspecified whether esophagitis present (K21.9) Active confirmed Plan Of Treatment Future Test Test Name Order Date UPPER GI ENDOSCOPY 10/16/2022 COLONOSCOPY 10/16/2022 Insurance Providers Payer Name Payer Address Payer Phone Subscriber Number Group Number Insured Name Patient Relationship to Insured Coverage Start Date Coverage End Date [facility] [address] [place] [phone] [id number] MITESH NEVAREZ Self - patient is the insured Medical (General) History Medical History History ICD Code IDDM--since age 13 Anxiety Hypothyroidism Constipation---seen by Jose SHUKLA MD--descibes a flex sig at [facility] > 10 years ago--improved with Miralax GERD Denies [place],CVA,Lung disease,renal disease Surgical History Surgery Date(Month/Year) Shoulder-Dr. Bush--rotator cuff 8
--- OUTSIDE RECORDS SUMMARY | 2025-09-21 08:05 | XMS_ITS | Encounter Summary ---
Author Organization [employer] Address [address] [facility] 7t [place] [address] Care Team Providers Care Fertilizer Applicator Name Role Phone Unavailable Primary Care Provider Unavailabl e Encounter Details Date Type Department Care Team (Late st Contact Info) Description 01/09/2023 Abstract [facility] ADULT DENTAL [address] [place] [address] Radha Marcelino, DDS [address] [place] [address] Social History Tobacco Use Types Packs/Day Years [...]
--- OUTSIDE RECORDS SUMMARY | 2025-09-21 08:05 | XMS_ITS | Encounter Summary ---
Author Organization [employer] Address [address] [facility] 7t [place] [address] Care Team Providers Care Health Underwriter Name Role Phone Unavailable Primary Care Provider Unavailabl e Encounter Details Date Type Department Care Team (Late st Contact Info) Description 01/17/2023 Abstract [facility] ADULT DENTAL [address] [place] [address] Radha Marcelino, DDS [address] [place] [address] Social History Tobacco Use Types Packs/Day Years [...]
== END 2025-09-21 08:21 | disposition home or self-care (01) ==
LOC: HO.HWS 08:01
PROVIDERS: PCP Internal Medicine; Visit Provider Obstetrics & Gynecology
DX: N87.0 Mild cervical dysplasia (principal)
CPT/HCPCS: 99213